=== PATIENT | male | born 1950 | race Caucasian/White ===

== ENCOUNTER 2020-01-27 10:19 | Outpatient (REF) | payer MEDICARE, SELFPAY ==
[2020-01-27 11:32] LABS: Estimated Average Glucose 111 mg/dL; Hemoglobin A1c % 5.5 %
[2020-01-27 12:14] LABS: Glucose Fasting 103 mg/dL (60-99)
[2020-01-27 12:57] LABS: Prostate Specific Antigen 0.52 ng/mL (<0.05-4.0); Thyroid Stimulating Hormone 2.42 mIU/mL (0.32-4.0)
[2020-01-27 13:31] LABS: T4 Thyroxine 5.5 ug/dL (4.5-12.0)
== END 2020-01-27 10:20 | disposition home or self-care (01) ==
LOC: HO.LAB 10:19
PROVIDERS: PCP Internal Medicine; Visit Provider Urology
DX: R73.02 Impaired glucose tolerance (oral) (principal); R94.6 Abnormal results of thyroid function studies
CPT/HCPCS: 82947; 83036; 84153; 84436; 84443

== ENCOUNTER 2020-03-07 11:42 | Emergency (ER) | payer MEDICARE, SELFPAY ==
[2020-03-07 12:09] VITALS: BP 129/68; PULSE 71; RESP 16; TEMP 37; O2SAT 100; BMI 26.5
--- NOTE | 2020-03-07 12:19 | PC.NURSE ---
provider at bedside for primary eval.
--- NOTE | 2020-03-07 12:27 | XR_ITS ---
EXAMINATION: XR CHEST CLINICAL INFORMATION: Cough COMPARISON: Chest radiographs 06/06/2017, 03/07/2015, CT chest report 03/15/2011. TECHNIQUE: 2 views of the chest were obtained. FINDINGS: There are scattered bilateral pleural plaques predominantly mid and lower zones similar in number and distribution to prior study. Calcified pleural plaques again noted diaphragmatic pleura. There is subtle groundglass opacities suggested right infrahilar region on frontal view. There is no lobar or segmental airspace consolidation or pleural effusion. No pulmonary fibrotic changes on plain film. The heart is normal in size. The vascularity is normal. The hilar and mediastinal contours and bony structures are unremarkable. XR/XR chest 2V IMPRESSION: 1. Subtle groundglass opacity right infrahilar region which may be associated with atypical/viral process. No effusion. 2. Numerous chronic calcified pleural plaques. No fibrotic changes. No effusion.
--- NOTE | 2020-03-07 12:28 | ECG_ITS ---
Test Reason : SOB Blood Pressure : / mmHG Vent. Rate : 061 BPM Atrial Rate : 061 BPM P-R Int : 146 ms QRS Dur : 094 ms QT Int : 396 ms P-R-T Axes : - degrees QTc Int : 398 ms Normal sinus rhythm Normal ECG No previous ECGs available Referred By: Bill Lilly Electronically Signed By:BRITNEY HOPPER MD
--- NOTE | 2020-03-07 12:32 | ED.GENADULT ---
HPI - General Adult General Chief complaint: General Medical <LEO Carolina - Last Filed: 03/07/20 21:07> Stated complaint: multiple complaints <LEO Carolina - Last Filed: 03/07/20 21:07> Time Seen by Provider: 03/07/20 12:27 <LEO Carolina Last Filed: 03/07/20 21:07> History of Present Illness HPI narrative: Patient complains of 1 episode of standing up and feeling very dizzy and lightheaded 2 days ago, he did not have chest pain shortness of breath palpitations headache or any numbness or weakness and symptoms were relieved when he sat back down For the past 4 5 days the patient has had symptoms of body aches fatigue runny nose, very mild cough and is concerned he may have COVID, he has no shortness of breath no chest pain no fever no chills no confusion no headache no nausea vomiting diarrhea or skin rash Symptoms are mild, he has no dizziness now <LEO Carolina Last Filed: 03/07/20 21:07> Related Data Home medications: Home Medications Medication Instructions Recorded Confirmed alirocumab 75 mg/mL subcutaneous 75 mg SUBCUT Q2W 02/16/20 02/16/20 pen injector aspirin 81 mg tablet,delayed 81 mg PO DAILY 02/16/20 02/16/20 release cholecalciferol (vitamin D3) 25 25 mcg PO DAILY 02/16/20 02/16/20 mcg (1,000 unit) capsule folic acid 400 mcg tablet 0.4 mg PO DAILY 02/16/20 02/16/20 olmesartan 20 mg tablet 20 mg PO DAILY 02/16/20 02/16/20 omega-3 fatty acids 1,000 mg 1,000 mg PO DAILY 02/16/20 02/16/20 capsule omeprazole 20 mg capsule,delayed 20 mg PO DAILY 02/16/20 02/16/20 release Previous Rx's Medication Instructions Recorded atenolol 50 mg tablet 50 mg PO DAILY #90 tab 02/02/20 atorvastatin 80 mg tablet 80 mg PO DAILY #90 tab 02/02/20 <LEO Carolina Last Filed: 03/07/20 21:07> Allergies/adverse reactions: Allergies Allergy/AdvReac Type Severity Reaction Status Date / Time simvastatin Allergy Unknown Unknown Verified 02/16/20 13:22 <LEO Carolina - Last Filed: 03/07/20 21:07> Review of Systems Review of Systems: No fever no chills no palpitations no chest pain no shortness of breath no neck pain no sore throat no abdominal pain no nausea no vomiting no urinary symptoms no changes to bowel bladder no numbness no weakness no confusion <LEO Carolina - Last Filed: 03/07/20 21:07> Yes all other systems are reviewed and are negative <LEO Carolina - Last Filed: 03/07/20 21:07> [facility] Past Medical History [facility] Narrative: Patient has history of [facility] several years ago and high blood pressure <LEO Carolina - Last Filed: 03/07/20 21:07> Source: nursing notes reviewed <LEO Carolina - Last Filed: 03/07/20 21:07> Medical History: Medical History (Updated 03/08/20 @ 00:00 by Linh Mccoy) Ascending aorta dilatation Barretts esophagus CAD (coronary artery disease) GERD (gastroesophageal reflux disease) 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 History of asbestos exposure History of herpes genitalis Hypercholesterolemia Hypertension Impaired glucose tolerance Moderate aortic stenosis Overweight (BMI 25.0-29.9) <LEO Carolina - Last Filed: 03/07/20 21:07> Surgical History: Surgical History History of appendectomy History of prostate surgery History of tumor History of vasectomy <LEO Carolina - Last Filed: 03/07/20 21:07> Family History Family History: Family History (Updated 02/15/20 @ 13:51 by Munira Good Zen) Father Hypertension CVD (cardiovascular disease) Mother Diabetes Past heart attack <LEO Carolina - Last Filed: 03/07/20 21:07> Social History Social History: Social History (Updated 02/16/20 @ 13:27 by Linda Medina MD) Alcohol intake: current Smoking Status: Former smoker Years Smoked: 25 years ago Advance Directives: No Advance Directives Information Provided: No <LEO Carolina - Last Filed: 03/07/20 21:07> Physical Exam Vital Signs: Vital Signs: Last Vital Signs Temp 98.5 F 03/07/20 15:03 Pulse 57 03/07/20 15:03 Resp 18 03/07/20 15:03 BP 139/71 03/07/20 15:03 Pulse Ox 99 03/07/20 15:03 Body Mass Index 26.5 <LEO Carolina - Last Filed: 03/07/20 21:07> Vital Signs: Last Vital Signs Temp 98.5 F 03/07/20 15:03 Pulse 57 03/07/20 15:03 Resp 18 03/07/20 15:03 BP 139/71 03/07/20 15:03 Pulse Ox 99 03/07/20 15:03 Body Mass Index 26.5 <Rodríguez Laboy MD - Last Filed: 03/16/20 07:05> Patient is A&O x3 comfortable-appearing no acute distress relaxed and cooperative Pharynx is clear Eyes no redness no discharge The chest is clear to auscultation bilaterally full symmetrical equal breath sounds, no respiratory distress, no adventitious sounds Heart no murmur The abdomen is soft and nontender Extremities no edema no rash The neuro is no focal deficit <LEO Carolina - Last Filed: 03/07/20 21:07> Course Course Course Narrative: Patient remains comfortable and asymptomatic throughout visit First troponin was 10 so a 2nd was repeated and unchanged Patient was hydrated with 1 L of fluid and had no dizziness and was able to stand up and ambulate with no symptoms <LEO Carolina - Last Filed: 03/07/20 21:07> I have reviewed the chart <Rodríguez Laboy MD - Last Filed: 03/16/20 07:05> Medical Decision Making Lab Data Lab results reviewed: Yes I reviewed the patient's lab results. <LEO Carolina - Last Filed: 03/07/20 21:07> Result diagrams: : 03/07/20 12:35 03/07/20 12:35 <LEO Carolina - Last Filed: 03/07/20 21:07> Labs: Lab Results 03/07/20 03/07/20 03/07/20 Range/Units 12:35 12:35 13:55 WBC 5.0 (4.8-10.8) X10*3/uL RBC 4.44 L (4.60-5.80) X10*6/uL Hgb 13.6 L (14.0-18.0) g/dl Hct 40.9 L (42-52) % MCV 92.1 (80-98) fL MCH 30.6 (27.0-33.0) pg MCHC 33.3 (31.0-36.0) g/dl RDW 12.5 (11.0-16.0) % Plt Count 131 L (160-400) X10*3/uL MPV 10.7 (9.4-12.4) fL Immature Gran % (Auto) 0.4 (0.0-0.4) % Neut % (Auto) 70.0 (45-73) % Lymph % (Auto) 11.9 L (20-40) % [place] % (Auto) 14.9 H (2-11) % Eos % (Auto) 2.4 (0-4) % Baso % (Auto) 0.4 (0-2) % Lymph # (Auto) 0.6 L (1.2-4.9) X10*3/uL [place] # (Auto) 0.7 (0.1-1.2) X10*3/uL Eos # (Auto) 0.1 (0.0-0.4) X10*3/uL Baso # (Auto) 0.0 (0.0-0.2) X10*3/uL Abs Immat Gran (auto) 0.02 (0.00-0.03) X10*3/uL Absolute Neuts (auto) 3.5 (2.0-8.3) X10*3/uL Absolute Nucleated RBC 0.000 (0.0-0.012) X10*3/uL Nucleated RBC % (auto) 0.0 (0.0-0.2) /100WBC Smear Tech's Comments VERIFIED Sodium 135 (135-145) mmol/L Potassium 4.5 (3.3-5.1) mmol/l Chloride 103 (96-108) mmol/L Carbon Dioxide 23 (22-29) mmol/L Anion Gap 14 (12-20) BUN 19 H (9-16) mg/dL Creatinine 0.92 (0.5-1.4) mg/dL Estim Creat Clear Calc 80.4 Estimated GFR > 60 Random Glucose 117 H (60-115) mg/dL Calcium 8.7 (8.4-10.2) mg/dL Troponin I High Sens 10.1 (<3.5-35.0) ng/L COVID-19 PCR (NOT DETECTED) 03/07/20 03/07/20 Range/Units 13:55 15:40 WBC (4.8-10.8) X10*3/uL RBC (4.60-5.80) X10*6/uL Hgb (14.0-18.0) g/dl Hct (42-52) % MCV (80-98) fL MCH (27.0-33.0) pg MCHC (31.0-36.0) g/dl RDW (11.0-16.0) % Plt Count (160-400) X10*3/uL MPV (9.4-12.4) fL Immature Gran % (Auto) (0.0-0.4) % Neut % (Auto) (45-73) % Lymph % (Auto) (20-40) % [place] % (Auto) (2-11) % Eos % (Auto) (0-4) % Baso % (Auto) (0-2) % Lymph # (Auto) (1.2-4.9) X10*3/uL [place] # (Auto) (0.1-1.2) X10*3/uL Eos # (Auto) (0.0-0.4) X10*3/uL Baso # (Auto) (0.0-0.2) X10*3/uL Abs Immat Gran (auto) (0.00-0.03) X10*3/uL Absolute Neuts (auto) (2.0-8.3) X10*3/uL Absolute Nucleated RBC (0.0-0.012) X10*3/uL Nucleated RBC % (auto) (0.0-0.2) /100WBC Smear Tech's Comments Sodium (135-145) mmol/L Potassium (3.3-5.1) mmol/l Chloride (96-108) mmol/L Carbon Dioxide (22-29) mmol/L Anion Gap (12-20) BUN (9-16) mg/dL Creatinine (0.5-1.4) mg/dL Estim Creat Clear Calc Estimated GFR Random Glucose (60-115) mg/dL Calcium (8.4-10.2) mg/dL Troponin I High Sens 10.2 (<3.5-35.0) ng/L COVID-19 PCR NOT DETECTED (NOT DETECTED) <LEO Carolina - Last Filed: 03/07/20 21:07> Lab Results 03/07/20 03/07/20 03/07/20 Range/Units 12:35 12:35 13:55 WBC 5.0 (4.8-10.8) X10*3/uL RBC 4.44 L (4.60-5.80) X10*6/uL Hgb 13.6 L (14.0-18.0) g/dl Hct 40.9 L (42-52) % MCV 92.1 (80-98) fL MCH 30.6 (27.0-33.0) pg MCHC 33.3 (31.0-36.0) g/dl RDW 12.5 (11.0-16.0) % Plt Count 131 L (160-400) X10*3/uL MPV 10.7 (9.4-12.4) fL Immature Gran % (Auto) 0.4 (0.0-0.4) % Neut % (Auto) 70.0 (45-73) % Lymph % (Auto) 11.9 L (20-40) % [place] % (Auto) 14.9 H (2-11) % Eos % (Auto) 2.4 (0-4) % Baso % (Auto) 0.4 (0-2) % Lymph # (Auto) 0.6 L (1.2-4.9) X10*3/uL [place] # (Auto) 0.7 (0.1-1.2) X10*3/uL Eos # (Auto) 0.1 (0.0-0.4) X10*3/uL Baso # (Auto) 0.0 (0.0-0.2) X10*3/uL Abs Immat Gran (auto) 0.02 (0.00-0.03) X10*3/uL Absolute Neuts (auto) 3.5 (2.0-8.3) X10*3/uL Absolute Nucleated RBC 0.000 (0.0-0.012) X10*3/uL Nucleated RBC % (auto) 0.0 (0.0-0.2) /100WBC Smear Tech's Comments VERIFIED Sodium 135 (135-145) mmol/L Potassium 4.5 (3.3-5.1) mmol/l Chloride 103 (96-108) mmol/L Carbon Dioxide 23 (22-29) mmol/L Anion Gap 14 (12-20) BUN 19 H (9-16) mg/dL Creatinine 0.92 (0.5-1.4) mg/dL Estim Creat Clear Calc 80.4 Estimated GFR > 60 Random Glucose 117 H (60-115) mg/dL Calcium 8.7 (8.4-10.2) mg/dL Troponin I High Sens 10.1 (<3.5-35.0) ng/L COVID-19 PCR (NOT DETECTED) 03/07/20 03/07/20 Range/Units 13:55 15:40 WBC (4.8-10.8) X10*3/uL RBC (4.60-5.80) X10*6/uL Hgb (14.0-18.0) g/dl Hct (42-52) % MCV (80-98) fL MCH (27.0-33.0) pg MCHC (31.0-36.0) g/dl RDW (11.0-16.0) % Plt Count (160-400) X10*3/uL MPV (9.4-12.4) fL Immature Gran % (Auto) (0.0-0.4) % Neut % (Auto) (45-73) % Lymph % (Auto) (20-40) % [place] % (Auto) (2-11) % Eos % (Auto) (0-4) % Baso % (Auto) (0-2) % Lymph # (Auto) (1.2-4.9) X10*3/uL [place] # (Auto) (0.1-1.2) X10*3/uL Eos # (Auto) (0.0-0.4) X10*3/uL Baso # (Auto) (0.0-0.2) X10*3/uL Abs Immat Gran (auto) (0.00-0.03) X10*3/uL Absolute Neuts (auto) (2.0-8.3) X10*3/uL Absolute Nucleated RBC (0.0-0.012) X10*3/uL Nucleated RBC % (auto) (0.0-0.2) /100WBC Smear Tech's Comments Sodium (135-145) mmol/L Potassium (3.3-5.1) mmol/l Chloride (96-108) mmol/L Carbon Dioxide (22-29) mmol/L Anion Gap (12-20) BUN (9-16) mg/dL Creatinine (0.5-1.4) mg/dL Estim Creat Clear Calc Estimated GFR Random Glucose (60-115) mg/dL Calcium (8.4-10.2) mg/dL Troponin I High Sens 10.2 (<3.5-35.0) ng/L COVID-19 PCR NOT DETECTED (NOT DETECTED) <Rodríguez Laboy MD - Last Filed: 03/16/20 07:05> Imaging Data Chest x-ray: My impression: No acute changes in chest x-ray <LEO Carolina - Last Filed: 03/07/20 21:07> Radiologist's impression: FINDINGS: There are scattered bilateral pleural plaques predominantly mid and lower zones similar in number and distribution to prior study. Calcified pleural plaques again noted diaphragmatic pleura. There is subtle groundglass opacities suggested right infrahilar region on frontal view. There is no lobar or segmental airspace consolidation or pleural effusion. No pulmonary fibrotic changes on plain film. The heart is normal in size. The vascularity is normal. The hilar and mediastinal contours and bony structures are unremarkable. XR/XR chest 2V IMPRESSION: 1. Subtle groundglass opacity right infrahilar region which may be associated with atypical/viral process. No effusion. 2. Numerous chronic calcified pleural plaques. No fibrotic changes. No effusion. <LEO Carolina - Last Filed: 03/07/20 21:07> ECG Data Attestation: I personally reviewed and interpreted this ECG as follows: <LEO Carolina - Last Filed: 03/07/20 21:07> Interpretation: EKG was normal sinus rhythm with a rate of sixty-one p.r. was normal QT was normal, no acute ST changes, no acute ischemic changes <LEO Carolina - Last Filed: 03/07/20 21:07> Discharge Plan Discharge Clinical Impression: Acute viral syndrome, Vasovagal episode <LEO Carolina - Last Filed: 03/07/20 21:07> Patient Disposition: Home, Self-Care <LEO Carolina - Last Filed: 03/07/20 21:07> Additional Instructions: Our testing today did not show any signs of heart attack or any imminent dangerous condition Your flu like symptoms certainly could be COVID We will call you with COVID test results in 2-3 days, but a negative test result does not rule it out so he have continued symptoms it is very possible use have COVID so you wear mask and keep a distance from people The dizziness and feeling lightheaded on standing up should be addressed by drinking a lot a water or fluids, and since before standing and then when you stand up wait a 2nd and see if u get dizzy, if you get dizzy sit back down Return any time any worse condition or concerns Follow with primary care doctor <LEO Carolina - Last Filed: 03/07/20 21:07> Prescriptions: No Action atenolol 50 mg tablet 50 mg PO DAILY Qty: 90 RF: 1 atorvastatin 80 mg tablet 80 mg PO DAILY Qty: 90 RF: 2 aspirin [Adult Aspirin Regimen] 81 mg tablet,delayed release (DR/EC) 81 mg PO DAILY RF: 0 omeprazole 20 mg capsule,delayed release(DR/EC) 20 mg PO DAILY RF: 0 olmesartan [Benicar] 20 mg tablet 20 mg PO DAILY RF: 0 Praluent Pen 75 mg/mL pen injector 75 mg subcut Q2W RF: 0 folic acid 400 mcg tablet 0.4 mg PO DAILY RF: 0 omega-3 fatty acids [Fish Oil Concentrate] 1,000 mg capsule 1,000 mg PO DAILY RF: 0 cholecalciferol (vitamin D3) 25 mcg (1,000 unit) capsule 25 mcg PO DAILY RF: 0 <LEO Carolina Last Filed: 03/07/20 21:07> Interventions: ED Discharge Assessment Last Done: 03/07/20 16:49 <LEO Carolina Last Filed: 03/07/20 21:07> Discharge Date/Time: 03/07/20 16:50 <LEO Carolina - Last Filed: 03/07/20 21:07>
[2020-03-07 12:57] LABS: Hematocrit 40.9 % (42-52); Hemoglobin 13.6 g/dl (14.0-18.0); Imm Gran Abs Auto 0.02 X10*3/uL (0.00-0.03); Imm Gran Pct Auto 0.4 % (0.0-0.4); MANUAL DIFF FLAG SCAN; Mean Corpuscular HGB Conc 33.3 g/dl (31.0-36.0); PLT CLUMP 1; Red Cell Distribution Width 12.5 % (11.0-16.0); SCAN SMEAR FLAG 1
[2020-03-07 12:58] LABS: Basophils Percent Auto 0.4 % (0-2); Eosinophils Absolute Auto 0.1 X10*3/uL (0.0-0.4); Eosinophils Percent Auto 2.4 % (0-4); Lymphocytes Absolute Auto 0.6 X10*3/uL (1.2-4.9); Lymphocytes Percent Auto 11.9 % (20-40); Mean Corpuscular Hemoglobin 30.6 pg (27.0-33.0); Mean Corpuscular Volume 92.1 fL (80-98); Mean Platelet Volume 10.7 fL (9.4-12.4); Monocytes Absolute Auto 0.7 X10*3/uL (0.1-1.2); Monocytes Percent Auto 14.9 % (2-11); Neutrophils Absolute Auto 3.5 X10*3/uL (2.0-8.3); Platelet Count 131 X10*3/uL (160-400); Red Blood Count 4.44 X10*6/uL (4.60-5.80)
[2020-03-07 13:19] LABS: Anion Gap 14 (12-20); Blood Urea Nitrogen 19 mg/dL (9-16); Calcium 8.7 mg/dL (8.4-10.2); Carbon Dioxide 23 mmol/L (22-29); Chloride 103 mmol/L (96-108); Creatinine Clr Calc Pharmacy 80.4; Estimated Glomerular Filt Rate > 60; Glucose Random 117 mg/dL (60-115); Potassium 4.5 mmol/l (3.3-5.1); Sodium 135 mmol/L (135-145)
[2020-03-07 13:38] LABS: SLIDE REVIEW VERIFIED
[2020-03-07] MEDS: 0.9 % Sodium Chloride 1,000 ML 999 ML IVCONT (13:45)
[2020-03-07 14:30] LABS: Troponin-I High Sensitivity 10.1 ng/L (<3.5-35.0)
[2020-03-07 15:03] VITALS: BP 139/71; PULSE 57; RESP 18; TEMP 36.9; O2SAT 99
[2020-03-07 16:21] LABS: Troponin-I High Sensitivity 10.2 ng/L (<3.5-35.0)
== END 2020-03-07 16:50 | disposition home or self-care (01) ==
PROVIDERS: Physician Assistant Medical; Emergency Provider Emergency Medicine; PCP Internal Medicine
DX: B34.9 Viral infection, unspecified (principal); R55 Syncope and collapse; R42 Dizziness and giddiness; Z20.828 Contact with and (suspected) exposure to other viral communicable diseases; Z79.899 Other long term (current) drug therapy; Z87.891 Personal history of nicotine dependence
CPT/HCPCS: 36415; 71046; 80048; 84484; 85025; 93005; 96360; 99283; 99284; U0003

== ENCOUNTER → 2020-04-29 14:37 | Outpatient (BNVA) | payer MEDICARE, SELFPAY | PROVIDERS: PCP Internal Medicine; Referring Provider Internal Medicine; Visit Provider Urology | DX: Z13.89 Encounter for screening for other disorder (principal) | CPT/HCPCS: Q3014 ==

== ENCOUNTER 2020-11-09 10:26 | Day surgery (SDC) | payer MEDICARE, SELFPAY ==
[2020-11-03 11:35] VITALS: BMI 27.3
--- NOTE | 2020-11-08 09:48 | P.CONAN_ITS ---
Documented by User: Lilli Harris 11/08/20 09:54 HPI - Anesthesia Eval Consult details Narrative: 70yo M for Upper Endoscopy Daily ETOH: 1-2 beers PMFSH Active Problems Active Problems: All Active Problems (Updated 11/03/20 @ 11:35 by China Kimball) BPH (benign prostatic hyperplasia) (Acute) Hypercholesterolemia (Acute) Barretts esophagus (Acute) CAD (coronary artery disease) (Acute) GERD (gastroesophageal reflux disease) (Acute) Hypertension (Acute) Past Medical History Medical History Arthritis Ascending aorta dilatation Barretts esophagus BPH (benign prostatic hyperplasia) CAD (coronary artery disease) Cancer, skin, squamous cell GERD (gastroesophageal reflux disease) 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 History of asbestos exposure History of herpes genitalis Hypercholesterolemia Hypertension Impaired glucose tolerance Insomnia Moderate aortic stenosis Overweight (BMI 25.0-29.9) PFO (patent foramen ovale) Scoliosis Family History Family History Father Hypertension CVD (cardiovascular disease) Mother Diabetes Past heart attack Surgical History Surgical History History of appendectomy History of esophagogastroduodenoscopy (EGD) History of prostate surgery History of vasectomy Hx of colonoscopy Hx of squamous cell carcinoma excision Social History Social History Alcohol intake: current Alcohol intake frequency: 0-2 drinks per day Alcohol type: beer Patient Tobacco Use Status: Former Tobacco user Quit Date: 1995 Years Smoked: 25 years ago Are you DNR?: No Advance Directives: No Advance Directives Information Provided: No Advance Directives on File: No Meds Allergies Allergy/AdvReac Type Severity Reaction Status Date / Time simvastatin Allergy Unknown Unknown Verified 11/09/20 11:20 Home Medications Medication Instructions Recorded Confirmed Last Taken Type alirocumab 75 mg/mL subcutaneous 75 mg SUBCUT Q2W 02/16/20 11/03/20 Unknown History pen injector (Praluent Pen) aspirin 81 mg tablet,delayed 81 mg PO DAILY 02/16/20 11/03/20 11/08/20 History release (Adult Aspirin Regimen) cholecalciferol (vitamin D3) 25 25 mcg PO .DAILY AT NOON 02/16/20 11/03/20 Unknown History mcg (1,000 unit) capsule folic acid 400 mcg tablet 0.4 mg PO .DAILY AT NOON 02/16/20 11/09/20 11/02/20 History omega-3 fatty acids 1,000 mg 1,000 mg PO TID 02/16/20 11/09/20 11/02/20 History capsule (Fish Oil Concentrate) omeprazole 20 mg capsule,delayed 20 mg PO DAILY@0630 02/16/20 11/09/20 11/09/20 08:30 History release atenolol 50 mg tablet 50 mg PO DAILY@1700 11/03/20 11/03/20 Unknown History atorvastatin 80 mg tablet 80 mg PO BEDTIME 11/03/20 11/03/20 Unknown History cyanocobalamin (vitamin B-12) 1,000 mcg SUBLINGUAL Q OTHER DAY 11/03/20 11/03/20 Unknown History 1,000 mcg sublingual tablet olmesartan 20 mg tablet 20 mg PO DAILY@17011/03/20 11/03/20 Unknown History Exam Exam Date and Time: November 08, 2020 0948 Height,Weight and Vital Signs: Height 5 ft 9 in Weight 83.915 kg Narrative Narrative: EKG Vent. Rate : 061 BPM Atrial Rate : 061 BPM P-R Int : 146 ms QRS Dur : 094 ms QT Int : 396 ms P-R-T Axes : -02 -18 -01 degrees QTc Int : 398 ms Normal sinus rhythm Normal ECG No previous ECGs available ECHO 01/2020 LVEF 60-65%, mild concentric LVH, mild LA dilation, known PFO, Nml RV size and nml systolic function, thickened aortic valve cusps with reduced excursions, Mod Aortic Stenosis, mild mitral regurg, dilated transverse aorta @ 3.4cm. No significant change from 2018 ECHO. 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 History of asbestos exposure History of herpes genitalis Hypercholesterolemia Hypertension Impaired glucose tolerance Insomnia Moderate aortic stenosis Overweight (BMI 25.0-29.9) PFO (patent foramen ovale) Scoliosis Family History Family History Father Hypertension CVD (cardiovascular disease) Mother Diabetes Past heart attack Surgical History Surgical History History of appendectomy History of esophagogastroduodenoscopy (EGD) History of prostate surgery History of vasectomy Hx of colonoscopy Hx of squamous cell carcinoma excision Social History Social History Alcohol intake: current Alcohol intake frequency: 0-2 drinks per day Alcohol type: beer Patient Tobacco Use Status: Former Tobacco user Quit Date: 1995 Years Smoked: 25 years ago Are you DNR?: No Advance Directives: No Advance Directives Information Provided: No Advance Directives on File: No Meds Allergies Allergy/AdvReac Type Severity Reaction Status Date / Time simvastatin Allergy Unknown Unknown Verified 11/09/20 11:20 Home Medications Medication Instructions Recorded Confirmed Last Taken Type alirocumab 75 mg/mL subcutaneous 75 mg SUBCUT Q2W 02/16/20 11/03/20 Unknown History pen injector (Praluent Pen) aspirin 81 mg tablet,delayed 81 mg PO DAILY 02/16/20 11/03/20 11/08/20 History release (Adult Aspirin Regimen) cholecalciferol (vitamin D3) 25 25 mcg PO .DAILY AT NOON 02/16/20 11/03/20 Unknown History mcg (1,000 unit) capsule folic acid 400 mcg tablet 0.4 mg PO .DAILY AT NOON 02/16/20 11/09/20 11/02/20 History omega-3 fatty acids 1,000 mg 1,000 mg PO TID 02/16/20 11/09/20 11/02/20 History capsule (Fish Oil Concentrate) omeprazole 20 mg capsule,delayed 20 mg PO DAILY@0630 02/16/20 11/09/20 11/09/20 08:30 History release atenolol 50 mg tablet 50 mg PO DAILY@1700 11/03/20 11/03/20 Unknown History atorvastatin 80 mg tablet 80 mg PO BEDTIME 11/03/20 11/03/20 Unknown History cyanocobalamin (vitamin B-12) 1,000 mcg SUBLINGUAL Q OTHER DAY 11/03/20 11/03/20 Unknown History 1,000 mcg sublingual tablet olmesartan 20 mg tablet 20 mg PO DAILY@1700 11/03/20 11/03/20 Unknown History Exam Airway Mallampati Class: II TM Dist: >3cm Neck ROM: Full Loose/Missing/Broken Teeth: No Heart: RRR Lungs: CTA Assessment and Plan Final Anesthetic Review NPO: Yes ASA Class: III Final Preanesthetic Review: Meds/Allgs Chart Reviewed, Consent Obtained/Reviewed and Anes Risks/Benef Reviewed Patient Risk: Intermediate Procedure Risk: Intermediate Anesthetic Plan Anesthetic Plan: MAC: Disposition: Standard PACU
[2020-11-09 11:21] VITALS: BP 143/66; PULSE 46; RESP 16; TEMP 36.8; O2SAT 97
[2020-11-09] MEDS: Lactated Ringers 1,000 ML 100 ML IVCONT (11:40)
[2020-11-09 13:00] VITALS: BP 83/40; PULSE 45; RESP 18; TEMP 36.4; O2SAT 97
--- NOTE | 2020-11-09 13:03 | P.BOP_ITS ---
Brief Operative Note Date of Service: 11/09/20 Pre-op diagnosis: Kruse's Esophagus, GERD Post-op diagnosis: other (Same, Hiatal hernia) Procedure: EGD with biopsies Surgeon: Kiel Mesa Was an [employer] used for this Procedure?: No Estimated blood loss (mL): 4.0 Pathology: other (A. EG Junction at 37cm) Condition: stable Disposition: PACU
[2020-11-09 13:15] VITALS: BP 114/61; PULSE 41; RESP 17; TEMP 36.4; O2SAT 97
--- NOTE | 2020-11-09 13:53 | OP_ITS ---
SURGEON: Kiel Mesa MD INDICATIONS: The patient presents for followup of gastroesophageal reflux and Kruse's esophagus. Full consent has been obtained from him for this, including risks of bleeding and perforation. PREOPERATIVE DIAGNOSIS: POSTOPERATIVE DIAGNOSIS: PROCEDURE PERFORMED: Esophagogastroduodenoscopy with biopsies. ESTIMATED BLOOD LOSS: COMPLICATIONS: ANESTHESIA: Monitored anesthesia care. ASSISTANTS: SPECIMENS: PREOPERATIVE DIAGNOSES: Gastroesophageal reflux and history of Kruse's esophagus. POSTOPERATIVE DIAGNOSES: Gastroesophageal reflux and history of Kruse's esophagus, hiatal hernia. DESCRIPTION OF PROCEDURE: The patient was placed in the left lateral decubitus position. The Olympus video gastroscope was passed in the posterior oropharynx and upper esophagus under direct vision. The scope was passed slowly into the distal esophagus. The gastroesophageal junction appeared at 37 cm. There was no esophagitis. There were less than 1 cm areas of probable Kruse's mucosa, but without any sign of lesions nor ulceration. There was a moderate-sized hiatal hernia. The hiatal hernia mucosa appeared normal. The scope was advanced to the pylorus and the duodenum was cannulated to the descending portion. The duodenum including the bulb appeared normal without mass or ulceration. The scope was withdrawn back in the stomach. The gastric antrum and body appeared normal with good peristalsis. The scope was retroflexed visualizing the proximal stomach carefully which appeared normal, without any sign of mass or ulceration. The scope was straightened out and withdrawn back into the esophagus. Multiple biopsies were obtained from the areas of Kruse's appearing mucosa at the EG junction at 37 cm. Proximal to this, the esophageal mucosa appeared normal. The scope was withdrawn from the patient. He tolerated the procedure well and was returned to the recovery area in stable condition. IMPRESSION: 1. History of Kruse's esophagus, rule out dysplasia. 2. Hiatal hernia. PLAN: The results of the biopsy will be checked. Assuming there is no dysplasia, I would recommend a repeat upper endoscopy in 3 years when he has his next screening colonoscopy in 2023. He was advised to continue his omeprazole. He was advised to resume his aspirin tomorrow. He was advised not to use any NSAIDs for at least a week. MD LYNN Dan/DAWSONL / [id number]
== END 2020-11-09 14:10 | disposition home or self-care (01) ==
PROVIDERS: PCP Internal Medicine; Visit Provider Internal Medicine
PROC: 0DJ08ZZ Inspection of Upper Intestinal Tract, Via Natural or Artificial Opening Endoscopic (ICD-10-PCS; CPT 43235; principal; 2020-11-09 11:40)
DX: K21.9 Gastro-esophageal reflux disease without esophagitis (principal); K22.70 Barrett's esophagus without dysplasia; K44.9 Diaphragmatic hernia without obstruction or gangrene; I25.10 Atherosclerotic heart disease of native coronary artery without angina pectoris; I10 Essential (primary) hypertension; Z98.61 Coronary angioplasty status; Z79.899 Other long term (current) drug therapy; Z79.82 Long term (current) use of aspirin; Z87.891 Personal history of nicotine dependence; Z85.828 Personal history of other malignant neoplasm of skin; Z77.090 Contact with and (suspected) exposure to asbestos
CPT/HCPCS: 43239; 88305; J0461

== ENCOUNTER → 2020-12-20 09:28 | Outpatient (BNVA) | payer MEDICARE, SELFPAY | PROVIDERS: PCP Internal Medicine; Referring Provider Internal Medicine; Visit Provider Surgery | DX: L72.3 Sebaceous cyst (principal) | CPT/HCPCS: 99202 ==

== ENCOUNTER 2021-01-19 07:41 | Outpatient (REF) | payer MEDICARE, SELFPAY ==
[2021-01-19 07:47] VITALS: BMI 26.6
[2021-01-19 07:48] VITALS: BP 123/71; PULSE 48; RESP 16; TEMP 37.1; O2SAT 100
[2021-01-19 08:56] VITALS: BP 144/71; PULSE 51; RESP 16; O2SAT 97
--- NOTE | 2021-01-27 08:53 | P.OP_ITS ---
Operative Note Operative Note Date of Service: 01/19/21 Narrative: Preoperative diagnosis: Skin cyst left thigh, right buttock, and bridge of nose Postoperative diagnosis: Same Procedure: Excision of left thigh, right buttock, and bridge of nose. Surgeon: Kiel López MD Movie Producer: No physician Anesthesia: Local Indications for procedure: 70-year-old male patient with a history of an enlarging lesion of the left thigh just above the knee, left buttock, and bridge of nose. Patient denies any pain associated with the lesions and denies a previous history of infection. He is requesting excision of all 3 lesions. Operative findings: Cystic appearing lesion of the left knee measuring approximately 1.5 cm in diameter. Lesion of the right buttock measures approximately 1.5 cm as well. Lesion of the face over the bridge of the nose measures approximately 0.5 cm in diameter. Specimen: Lesion of left thigh, right buttock, and bridge of nose Estimated blood loss: 10 mL Complications: None Procedure details: Patient was brought to the minor surgery suite and placed in a supine position. The sites of surgery were confirmed in the left thigh just above the knee on the lateral surface, right buttock, and face. After assuring informed consent the skin over the left thigh lesion was prepped with Betadine and draped in sterile fashion. Local anesthesia consisting 1% lidocaine with epinephrine was then infiltrated circumferentially. An elliptical incision was then created in a longitudinal fashion directly over the palpable lesion. A margin of 2 mm was performed around the lesion and elongated longitudinally. Incision was then made with a scalpel carried out through subcutaneous tissue, and around the lesion. Hemostasis was assured using light pressure. Deep subcutaneous tissue was reapproximated using interrupted 3-0 Polysorb sutures. Dermis was reapproximated using interrupted 3-0 Polysorb sutures. Skin was then closed using interrupted 4-0 nylon sutures. Sterile dressings were then applied. Attention was then directed to the face were again the skin was prepped with Betadine and draped in a sterile fashion directly over the bridge of the nose. An elliptical incision oriented transversely was then created around the palpab le lesion. This was carried out through subcutaneous tissue and around the cyst wall. Skin was then closed using interrupted 5 0 nylon sutures. Sterile dressings consisting of small sq of gauze and Tegaderm were then applied. The patient was then placed in a prone position and the skin over the right buttock palpable mass was prepped with Betadine and draped in sterile fashion. Local anesthesia was then infiltrated circumferentially and elliptical incision oriented obliquely was then performed along the lines of tension. Incision was carried down through subcutaneous tissue and around the palpable lesion. This was passed off the table and sent to pathology for further examination. Pressure was held to maintain hemostasis. Deep subcutaneous tissue was reapproximated using interrupted 3-0 Polysorb sutures. Dermis was reapproximated using interrupted 3-0 Polysorb sutures. Skin was then closed using interrupted 4-0 nylon sutures. Sterile dressings were then applied. The and tolerated the procedure well. Sponge, instrument, and needle counts reported as correct. He was discharged to home in stable condition.
== END 2021-01-19 07:42 | disposition home or self-care (01) ==
LOC: HO.MS 07:41
PROVIDERS: PCP Internal Medicine; Visit Provider Surgery
PROC: (CPT 11602; principal; 2021-01-19 08:00)
DX: C4A.72 Merkel cell carcinoma of left lower limb, including hip (principal); C4A.59 Merkel cell carcinoma of other part of trunk; D23.39 Other benign neoplasm of skin of other parts of face
CPT/HCPCS: 11602 ×2; 12032; 11440; 88304; 88305; 88341; 88342; 88360

== ENCOUNTER 2021-01-25 09:58 | Outpatient (REF) | payer MEDICARE, SELFPAY ==
[2021-01-25 13:33] LABS: MANUAL DIFF FLAG NO
[2021-01-25 13:41] LABS: Basophils Percent Auto 0.4 % (0-2); Eosinophils Absolute Auto 0.1 X10*3/uL (0.0-0.4); Eosinophils Percent Auto 2.3 % (0-4); Hematocrit 44.9 % (42-52); Hemoglobin 14.8 g/dl (14.0-18.0); Imm Gran Abs Auto 0.01 X10*3/uL (0.00-0.03); Imm Gran Pct Auto 0.2 % (0.0-0.4); Lymphocytes Absolute Auto 1.2 X10*3/uL (1.2-4.9); Lymphocytes Percent Auto 21.8 % (20-40); Mean Corpuscular Hemoglobin 30.3 pg (27.0-33.0); Mean Platelet Volume 11.1 fL (9.4-12.4); Monocytes Absolute Auto 0.5 X10*3/uL (0.1-1.2); Monocytes Percent Auto 8.1 % (2-11); Neutrophils Absolute Auto 3.7 X10*3/uL (2.0-8.3); Neutrophils Percent Auto 67.2 % (45-73); Platelet Count 138 X10*3/uL (160-400); Red Blood Count 4.88 X10*6/uL (4.60-5.80); Red Cell Distribution Width 13.1 % (11.0-16.0); White Blood Count 5.5 X10*3/uL (4.8-10.8)
[2021-01-25 13:54] LABS: Alanine Aminotransferase 20 U/L (0-40); Albumin Level 4.1 g/dL (3.5-5.0); Alkaline Phosphatase 51 U/L (39-117); Anion Gap 10 (12-20); Aspartate Amino Transferase 22 U/L (5-37); Bilirubin Total 0.7 mg/dL (0.0-1.0); Blood Urea Nitrogen 19 mg/dL (9-16); Calcium 9.3 mg/dL (8.4-10.2); Carbon Dioxide 27 mmol/L (22-29); Chloride 106 mmol/L (96-108); Cholesterol 159 mg/dL; Estimated Glomerular Filt Rate > 60; Glucose Random 115 mg/dL (60-115); HDL Cholesterol 57 mg/dL; LDL Cholesterol Calculated 86 mg/dl; Potassium 4.8 mmol/L (3.3-5.1); Sodium 138 mmol/L (135-145); Total Protein 6.4 g/dL (6.5-8.0); Triglycerides 82 mg/dL
[2021-01-25 14:15] LABS: Prostate Specific Antigen Scr 0.31 ng/mL (<0.05-4.0); Thyroid Stimulating Hormone 3.04 uIU/mL (0.32-4.0)
[2021-01-25 14:19] LABS: PSA,Total (Free>4and<10) 0.29 ng/mL (0.00-4.00)
[2021-01-25 14:53] LABS: Folate 18.9 ng/mL (> or = 4.0); Vitamin B12 411 pg/mL (200-900)
== END 2021-01-25 09:59 | disposition home or self-care (01) ==
LOC: HO.10HDL 09:58
PROVIDERS: Absent Provider Urology; Visit Provider Internal Medicine
DX: Z12.5 Encounter for screening for malignant neoplasm of prostate (principal); I25.10 Atherosclerotic heart disease of native coronary artery without angina pectoris; E78.00 Pure hypercholesterolemia, unspecified; N13.8 Other obstructive and reflux uropathy; N40.1 Benign prostatic hyperplasia with lower urinary tract symptoms
CPT/HCPCS: 36415; 80053; 80061; 82607; 82746; 84153; 84443; 85025

== ENCOUNTER → 2021-01-26 13:55 | Outpatient (BNVA) | payer MEDICARE, SELFPAY | PROVIDERS: PCP Internal Medicine; Referring Provider Internal Medicine; Visit Provider Surgery | DX: C4A.72 Merkel cell carcinoma of left lower limb, including hip (principal); C4A.59 Merkel cell carcinoma of other part of trunk; E78.00 Pure hypercholesterolemia, unspecified; I10 Essential (primary) hypertension; Z87.891 Personal history of nicotine dependence; Z88.8 Allergy status to other drugs, medicaments and biological substances | CPT/HCPCS: 99212 ==

== ENCOUNTER → 2021-04-27 09:00 | Outpatient (BNVA) | payer MEDICARE, SELFPAY | PROVIDERS: PCP Internal Medicine; Visit Provider Urology | DX: N40.0 Benign prostatic hyperplasia without lower urinary tract symptoms (principal) | CPT/HCPCS: Q3014 ==

== ENCOUNTER 2021-06-21 09:27 | Outpatient (REF) | payer MEDICARE, SELFPAY ==
[2021-06-21 10:26] LABS: Estimated Average Glucose 105 mg/dL; Hemoglobin A1c % 5.3 %
[2021-06-21 10:42] LABS: Alanine Aminotransferase 27 U/L (0-40); Albumin Level 4.1 g/dL (3.5-5.0); Alkaline Phosphatase 50 U/L (39-117); Anion Gap 10 (12-20); Aspartate Amino Transferase 27 U/L (5-37); Blood Urea Nitrogen 17 mg/dL (9-16); Calcium 9.6 mg/dL (8.4-10.2); Carbon Dioxide 29 mmol/L (22-29); Chloride 106 mmol/L (96-108); Cholesterol 164 mg/dL; Estimated Glomerular Filt Rate > 60; Glucose Random 115 mg/dL (60-115); HDL Cholesterol 71 mg/dL; LDL Cholesterol Calculated 82 mg/dl; Potassium 4.9 mmol/L (3.3-5.1); Sodium 140 mmol/L (135-145); Total Protein 6.6 g/dL (6.5-8.0); Triglycerides 57 mg/dL
== END 2021-06-21 09:28 | disposition home or self-care (01) ==
LOC: HO.LAB 09:27
PROVIDERS: PCP Internal Medicine; Visit Provider Internal Medicine
DX: E78.00 Pure hypercholesterolemia, unspecified (principal)
CPT/HCPCS: 36415; 80053; 80061; 83036

== ENCOUNTER 2022-02-19 09:18 | Outpatient (REF) | payer MEDICARE, SELFPAY ==
[2022-02-19 10:28] LABS: MANUAL DIFF FLAG NO
[2022-02-19 10:40] LABS: Basophils Percent Auto 0.7 % (0-2); Eosinophils Absolute Auto 0.1 X10*3/uL (0.0-0.4); Eosinophils Percent Auto 2.7 % (0-4); Hematocrit 44.4 % (42.0-52.0); Hemoglobin 14.5 g/dl (14.0-18.0); Lymphocytes Absolute Auto 0.7 X10*3/uL (1.2-4.9); Lymphocytes Percent Auto 17.6 % (20-40); Mean Corpuscular HGB Conc 32.7 g/dl (31.0-36.0); Mean Corpuscular Hemoglobin 30.3 pg (27.0-33.0); Mean Corpuscular Volume 92.9 fL (80.0-98.0); Mean Platelet Volume 10.8 fL (9.4-12.4); Monocytes Absolute Auto 0.4 X10*3/uL (0.1-1.2); Monocytes Percent Auto 9.6 % (2-11); Neutrophils Absolute Auto 2.8 x10*3/uL (2.0-8.3); Neutrophils Percent Auto 69.4 % (45-73); Platelet Count 125 X10*3/uL (160-400); Red Blood Count 4.78 X10*6/uL (4.60-5.80); Red Cell Distribution Width 13.2 % (11.0-16.0); White Blood Count 4.1 X10*3/uL (4.8-10.8)
[2022-02-19 11:00] LABS: Alanine Aminotransferase 23 U/L (0-40); Albumin Level 4.3 g/dL (3.5-5.0); Alkaline Phosphatase 51 U/L (39-117); Anion Gap 15 (12-20); Aspartate Amino Transferase 24 U/L (5-37); Bilirubin Total 0.9 mg/dL (0.0-1.0); Blood Urea Nitrogen 16 mg/dL (9-16); Calcium 9.3 mg/dL (8.4-10.2); Carbon Dioxide 25 mmol/L (22-29); Chloride 105 mmol/L (96-108); Cholesterol 166 mg/dL; Estimated Glomerular Filt Rate > 60; Glucose Random 107 mg/dL (60-115); HDL Cholesterol 69 mg/dL; LDL Cholesterol Calculated 82 mg/dl; Potassium 4.8 mmol/L (3.3-5.1); Sodium 140 mmol/L (135-145); Total Protein 6.8 g/dL (6.5-8.0); Triglycerides 75 mg/dL
[2022-02-19 11:07] LABS: B Type Natriuretic Peptide 94 pg/mL (<100)
[2022-02-19 11:22] LABS: Prostate Specific Antigen 0.12 ng/mL (<0.05-4.0)
[2022-02-19 11:29] LABS: Free T4 (Free Thyroxine) 0.81 ng/dL (0.71-1.85); Prostate Specific Antigen Scr 0.12 ng/mL (<0.05-4.0); Thyroid Stimulating Hormone 2.58 uIU/mL (0.32-4.0)
[2022-02-19 12:13] LABS: Folate > 20.0 ng/mL (> or = 4.0); Vitamin B12 420 pg/mL (200-900)
== END 2022-02-19 09:19 | disposition home or self-care (01) ==
LOC: HO.10HDL 09:18
PROVIDERS: Absent Provider Urology; Referring Provider Internal Medicine Cardiovascular Disease; Visit Provider Internal Medicine
DX: N40.1 Benign prostatic hyperplasia with lower urinary tract symptoms (principal); E78.5 Hyperlipidemia, unspecified; I25.10 Atherosclerotic heart disease of native coronary artery without angina pectoris; E78.00 Pure hypercholesterolemia, unspecified; N13.8 Other obstructive and reflux uropathy; Z12.5 Encounter for screening for malignant neoplasm of prostate
CPT/HCPCS: 36415; 80053; 80061; 82607; 82746; 83880; 84153; 84439; 84443; 85025

== ENCOUNTER → 2022-04-27 10:38 | Outpatient (BNVA) | payer MEDICARE, SELFPAY | PROVIDERS: PCP Internal Medicine; Visit Provider Urology | DX: N40.0 Benign prostatic hyperplasia without lower urinary tract symptoms (principal) | CPT/HCPCS: 51798; 99212 ==

== ENCOUNTER 2023-02-19 09:32 | Outpatient (REF) | payer MEDICARE, SELFPAY ==
[2023-02-19 10:42] LABS: MANUAL DIFF FLAG NO
[2023-02-19 10:54] LABS: Basophils Percent Auto 0.7 % (0-2); Eosinophils Absolute Auto 0.1 X10*3/uL (0.0-0.4); Eosinophils Percent Auto 2.1 % (0-4); Hematocrit 44.7 % (42.0-52.0); Hemoglobin 14.4 g/dl (14.0-18.0); Imm Gran Abs Auto 0.01 X10*3/uL (0.00-0.03); Imm Gran Pct Auto 0.2 % (0.0-0.4); Lymphocytes Absolute Auto 0.8 X10*3/uL (1.2-4.9); Lymphocytes Percent Auto 17.3 % (20-40); Mean Corpuscular HGB Conc 32.2 g/dl (31.0-36.0); Mean Corpuscular Hemoglobin 30.6 pg (27.0-33.0); Mean Corpuscular Volume 95.1 fL (80.0-98.0); Mean Platelet Volume 10.5 fL (9.4-12.4); Monocytes Absolute Auto 0.5 X10*3/uL (0.1-1.2); Monocytes Percent Auto 10.9 % (2-11); Neutrophils Percent Auto 68.8 % (45-73); Platelet Count 125 X10*3/uL (160-400); Red Cell Distribution Width 13.3 % (11.0-16.0); White Blood Count 4.3 X10*3/uL (4.8-10.8)
[2023-02-19 11:20] LABS: Alanine Aminotransferase 21 U/L (0-40); Albumin Level 4.1 g/dL (3.5-5.0); Alkaline Phosphatase 53 U/L (39-117); Anion Gap 11 (12-20); Aspartate Amino Transferase 24 U/L (5-37); Bilirubin Total 0.7 mg/dL (0.0-1.0); Blood Urea Nitrogen 15 mg/dL (9-16); Calcium 9.6 mg/dL (8.4-10.2); Carbon Dioxide 28 mmol/L (22-29); Chloride 107 mmol/L (96-108); Cholesterol 146 mg/dL (<200); Estimated Glomerular Filt Rate > 60; Glucose Random 114 mg/dL (60-115); HDL Cholesterol 68 mg/dL (>40); LDL Cholesterol Calculated 68 mg/dL (<100); Potassium 4.9 mmol/L (3.3-5.1); Sodium 141 mmol/L (135-145); Total Protein 6.8 g/dL (6.5-8.0); Triglycerides 53 mg/dL (<150)
[2023-02-19 11:26] LABS: Free T4 (Free Thyroxine) 0.76 ng/dL (0.71-1.85); Thyroid Stimulating Hormone 3.13 uIU/mL (0.32-4.0); Vitamin D 25-OH Total 43.3 ng/mL (>30)
[2023-02-19 11:34] LABS: Folate 13.5 ng/mL (> or = 4.0); Prostate Specific Antigen Scr 0.15 ng/mL (<0.05-4.0); Vitamin B12 374 pg/mL (200-900)
== END 2023-02-19 09:33 | disposition home or self-care (01) ==
LOC: HO.10HDL 09:32
PROVIDERS: Visit Provider Internal Medicine
DX: E78.00 Pure hypercholesterolemia, unspecified (principal); Z12.5 Encounter for screening for malignant neoplasm of prostate; C4A.9 Merkel cell carcinoma, unspecified
CPT/HCPCS: 36415; 80053; 80061; 82306; 82607; 82746; 84153; 84439; 84443; 85025

== ENCOUNTER 2023-03-26 09:54 | Outpatient (AMB) | payer MEDICARE, SELFPAY ==
--- NOTE | 2023-03-26 09:56 | AM.OFFVISMDC ---
Intake Vital Signs 03/26/23 09:57 03/26/23 10:22 Height 5 ft 9.5 in Weight 191 lb 0.2 oz BMI 27.8 BP 124/68 Blood Pressure Location Lt brachial Position Sitting Pulse 47 L 50 Pulse Source Pulse Oximeter Palpation Pulse Oximetry (%) 98 Oxygen Delivery Method Room Air Intake Visit Reasons: RUST G0439 Cook Italian Style Food Required: No Allergies simvastatin Allergy (Unknown, Verified 03/26/23 10:12) Unknown Medication List - Last Reconciled 03/26/23 by NARINDER Mayes alirocumab (Praluent Pen) mg subcut amlodipine 2.5 mg PO DAILY aspirin (Adult Aspirin Regimen) 81 mg PO DAILY atenolol 50 mg PO DAILY atorvastatin 80 mg PO BEDTIME 90 days [cbd oil ] cholecalciferol (vitamin D3) 25 mcg PO .DAILY AT NOON cyanocobalamin (vitamin B-12) 1,000 mcg sublingual Q OTHER DAY folic acid 0.4 mg PO .DAILY AT NOON hydrocortisone 2.5% (Proctosol HC) 1 appl [place] BID-QID PRN nystatin 1 appl topical BID-TID olmesartan 20 mg PO DAILY omeprazole 20 mg PO DAILY@0630 HPI RUST G0439 HPI Details Patient is a 72-year-old male who presents today for subsequent wellness visit. Patient of Dr. Medina. Today we discussed patient's need for tetanus vaccine. Up-to-date with other health preventative screenings. Loiza of care was reviewed with the patient and he was provided with a screening schedule. End of life planning was discussed with the patient and he was provided with MOLST form. He will provide office with a healthcare proxy form, he has this at home. 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 History of herpes genitalis Impaired glucose tolerance Hypercholesterolemia Ascending aorta dilatation Moderate aortic stenosis Barretts esophagus CAD (coronary artery disease) Overweight (BMI 25.0-29.9) History of asbestos exposure GERD (gastroesophageal reflux disease) Hypertension Surgical History Hx of squamous cell carcinoma excision Hx of colonoscopy History of esophagogastroduodenoscopy (EGD) History of prostate surgery History of vasectomy History of appendectomy Family History Father Hypertension CVD (cardiovascular disease) Mother Diabetes Past heart attack Social History Housing: House Alcohol intake: current Alcohol intake frequency: 0-2 drinks per day Alcohol type: beer Patient Tobacco Use Status: Former Tobacco user Quit Date: 1995 Tobacco use type: Cigarette Years Smoked: 25 years ago e-Cigarette/Vaping Use: Never Used Second Hand Smoke Exposure: No Current occupational status: retired Cognitive needs: No Hearing needs: No Vision needs: Yes Questionnaire Medicare Wellness Checkup What [age] 65-71 What gender do you identify with?: male During the past 4 weeks, how much have you been bothered by emotional problems such as feeling anxious, depressed, irritable, sad or downhearted, and blue?: not at all During the past 4 weeks, has your physical & emotional health limited your social activities with family, friends, neighbors, or groups?: not at all During the past 4 weeks, how much bodily pain have you generally had?: mild pain During the past 4 weeks, was someone available to help you if you needed & wanted help?: yes, as much as I wanted During the past 4 weeks, what was the hardest physical activity you could do for at least 2 minutes?: moderate Can you get to places out of walking distance without help? (For eg., can you travel alone on buses, taxis or drive your car?): Yes Can you go shopping for groceries or clothes without someone's help?: Yes Can you prepare your own meals?: Yes Can you do your housework without help?: Yes Because of any health problems, do you need the help of another person with your personal care needs such as eating, bathing, dressing or getting around the house?: No Can you handle your own money without help?: Yes During the past 4 weeks, how would you rate your health in general?: good During the past 4 weeks how have things been going for you?: pretty well Are you having difficulties driving your car?: no Do you always fasten your seat belt when you are in a car?: yes, usually During past 4 weeks, have you been bothered by the following: never: Falling or dizzy when standing up, Trouble eating well?, Teeth or denture problems? and Problems using the telephone? and seldom: Sexual problems? and Tiredness or fatigue? Have you fallen 2 or more times in the past year?: No Are you afraid of falling?: No Are you a smoker?: no During the past 4 weeks, how many drinks of wine, beer, or other alcoholic beverages did you have?: 6-9 drinks per week Do you exercise for about 20 minutes 3 or more times a week?: yes, most of the time Have you been given information to help with the following?: no: Hazards in your house that might hurt you? and no: Keeping track of your medications? How often do you have trouble taking medicines the way you have been told to take them?: I always take medicine as prescribed How confident are you that you can control & manage most of your health problems?: somewhat confident What is your race?: White Mini Mental State Exam (MMSE) Orientation What is the (year) (season) (date) (day) (month)?: year, season, date, day and month Score Score: 5 Activity of Daily Living Bathing - sponge bath, tub bath or shower: receives no assistance (gets in/out by self, if usual bathing means Dressing - getting clothes from closets & drawers, including inner/outer garments & fasteners.: gets clothes & gets completely dressed without help Toileting - going to the 'toilet room' for urine/bowel elimination & cleaning self/arranging clothes: goes to toilet room, cleans self, arranges clothes without help Transfer: moves in & out of bed and chair without help (may use support object) Continence: controls urination/bowel movements completely by self Feeding: feeds self without help Total Score: 0 Information obtained from: patient Using telephone: independent Traveling: independent Shopping: independent Preparing meals: independent Housework: independent Taking medicine: independent Managing money: independent PHQ-9 Over the last 2 weeks, how often have you been bothered by any of the following problems? 1. Little interest or pleasure in doing things: not at all 2. Feeling down, depressed, or hopeless: not at all 3. Trouble falling or staying asleep, or sleeping too much: not at all 4. Feeling tired or having little energy: several days 5. Poor appetite or overeating: not at all 6. Feeling bad about yourself - or that you are a failure or have let yourself or your family down: not at all 7. Trouble concentrating on things, such as reading the newspaper or watching television: not at all 8. Moving or speaking so slowly that other people could have noticed. Or the opposite - being so fidgety or restless that you have been moving around a lot more than usual: not at all 9. Thoughts that you would be better off or of hurting yourself in some way: not at all Total score: 1 Depression Screening Interpretation: Negative Depression Screening Done: Yes 03330 - PHQ-9 Billing: Yes Source: Developed by Drs. Kiel Webb, Rohini Yu, Wily Rudolph and colleagues, with an educational mike from [employer]. Physical Exam Vital Signs: Last Vital Signs Pulse 47 L 03/26/23 09:57 BP 124/68 03/26/23 09:57 Pulse Ox 98 03/26/23 09:57 Oxygen Delivery Method Room Air 03/26/23 09:57 BMI result Body Mass Index 27.8 Const General: cooperative and no acute distress Orientation/consciousness: patient oriented x3 HEENT Other: Whisper test: pass Neuro Other: Balance: Normal Get up and walk: able to Romberg: negative Tandem gait: able to General: patient oriented x3 Immunizations tetanus-diphtheria toxoids-Td 2 Lf unit-2 Lf unit/0.5 mL IM suspension Performing Provider: NARINDER Mayes [facility] Administered by: SISSY Boyd on 03/26/23 10:28 Dose Route Admin Location Dispensed Lot Number Expiration Date [facility] Academic Support Director 0.5 mL IM Left Deltoid 0.5 mL [id number] 08/19/23 [address]-1 [employer] VIS Given Date VIS Provided VIS Publication Date 03/26/23 Single Vaccine 20 Eligibility Eligibility Date Funding Source Not [facility] Eligible 03/26/23 [facility] funds Assessment & Plan Assessment & Plan (1) [place]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 [place] cell carcinoma center [facility][id number] , Radiation oncologist Dr. Reilly Camargo [phone] and Eleni Kelykeenan Cutaneous oncology [phone] Code(s): C4A.72 - [place] cell carcinoma of left lower limb, including hip Plan: Continue to follow-up with Dermatology (2) Adult general medical exam: Code(s): Z00.00 - Encounter for general adult medical examination without abnormal findings Plan: Repeat in 1 year (3) BPH (benign prostatic hyperplasia): Code(s): N40.0 - Benign prostatic hyperplasia without lower urinary tract symptoms Qualifiers: Lower urinary tract symptom presence: unspecified whether lower urinary tract symptoms present Qualified Code(s): N40.0 - Benign prostatic hyperplasia without lower urinary tract symptoms Plan: Was seen by Urology in the past (4) Hypercholesterolemia: Code(s): E78.00 - Pure hypercholesterolemia, unspecified Plan: Continue current treatment Low-cholesterol diet Continue to follow-up with cardiology (5) CAD (coronary artery disease): Comment: Angioplasty 1993 Dr. Trimble echo October 2016 aortic dilatation 3.7 moderate , EF 55-60% echo October 2017 EF 60% moderate aorta 3.8 it February 2020 normal LV function 60-65% abnormal left ventricle diastolic function, mildly dilated atrium left, moderate aortic stenosis, I aorta 3.4 cm June 2021 ejection fraction 55-60% dilated left atrium PFO moderate Code(s): I25.10 - Atherosclerotic heart disease of [place] coronary artery without angina pectoris Qualifiers: Associated angina: without angina Coronary Disease-Associated Artery/Lesion type: [place] artery [place] vs. transplanted heart: [place] heart Qualified Code(s): I25.10 - Atherosclerotic heart disease of [place] coronary artery without angina pectoris Plan: Continue to follow-up with cardiology (6) Barretts esophagus: Code(s): K22.70 - Kruse's esophagus without dysplasia Qualifiers: Kruse's esophagus type: without dysplasia Qualified Code(s): K22.70 - Kruse's esophagus without dysplasia Plan: Omeprazole 20 mg daily (7) GERD (gastroesophageal reflux disease): Code(s): K21.9 - Gastro-esophageal reflux disease without esophagitis Plan: Omeprazole 20 mg daily Avoid GERD trigger foods Do not lay down 2-3 hours after evening meal (8) Hypertension: Code(s): I10 - Essential (primary) hypertension Qualifiers: Hypertension type: essential hypertension Qualified Code(s): I10 - Essential (primary) hypertension Plan: Continue current treatment Low-sodium diet and exercise as tolerated (9) [place]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: Code(s): C4A.59 - [place] cell carcinoma of other part of trunk Plan: Same as above Orders: Orders Td State Immunization Today Z23 - Encounter for immunization Quality Reporting (2019) Depression/Bipolar (159/160/161/177) PHQ-9: Total score: 1 Coding Level of Care Code Medicare Subsequent (G0439) Diagnoses [place] cell skin cancer of left thigh C4A.72 Adult general medical exam Z00.00 Benign prostatic hyperplasia, unspecified whether lower urinary tract symptoms present N40.0 Lower urinary tract symptom presence: unspecified whether lower urinary tract symptoms present Hypercholesterolemia E78.00 Coronary artery disease involving [place] coronary artery of [place] heart without angina pectoris I25.10 Associated angina: without angina Coronary Disease-Associated Artery/Lesion type: [place] artery [place] vs. transplanted heart: [place] heart Kruse's esophagus without dysplasia K22.70 [place]'s esophagus type: without dysplasia GERD (gastroesophageal reflux disease) K21.9 Essential hypertension I10 Hypertension type: essential hypertension [place]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 C4A.59 CPT Codes Advance Care Planning - Time spent: 1-15 minutes, not on file ([id number]) Advance Care Planning Advance Care Planning discussion: Exists, not on file Date of discussion: 03/26/23 Who was present: pt and nonprofit financial controller Forms completed: None Time spent: 1-15 minutes, not on file Actual minutes spent: 3 Did not discuss due to Cultural/Spiritual beliefs: No
[2023-03-26 09:57] VITALS: BP 124/68; PULSE 47; O2SAT 98; BMI 27.8
[2023-03-26 10:22] VITALS: PULSE 50
== END 2023-03-26 10:33 | disposition home or self-care (01) ==
PROVIDERS: Visit Provider Nurse Practitioner Family
DX: Z00.00 Encounter for general adult medical examination without abnormal findings (principal); C4A.72 Merkel cell carcinoma of left lower limb, including hip; C4A.59 Merkel cell carcinoma of other part of trunk; Z23 Encounter for immunization; N40.0 Benign prostatic hyperplasia without lower urinary tract symptoms; E78.00 Pure hypercholesterolemia, unspecified; I25.10 Atherosclerotic heart disease of native coronary artery without angina pectoris; K22.70 Barrett's esophagus without dysplasia; K21.9 Gastro-esophageal reflux disease without esophagitis; I10 Essential (primary) hypertension
CPT/HCPCS: 1124F; 90471; 90714; G0439

== ENCOUNTER 2023-06-21 09:37 | Outpatient (AMB) | payer MEDICARE, SELFPAY ==
[2023-06-21 09:42] VITALS: BP 138/62; PULSE 63; O2SAT 99; BMI 27.7
--- NOTE | 2023-06-21 09:42 | MHC.PC.OV ---
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 Last seen in July 2022. Patient's colonoscopy is due this year and EGD also. Review of the notes has followed up with Cardiology April 2023 longstanding ischemic heart disease with chronic stable angina did have myocardial infarction 1994 angioplasty done has had TIA in 2011 moderate aortic stenosis PFO systemic hypertension hypercholesterolemia and BPH. 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 History of herpes genitalis Impaired glucose tolerance Hypercholesterolemia Ascending aorta dilatation Moderate aortic stenosis Barretts esophagus CAD (coronary artery disease) Overweight (BMI 25.0-29.9) History of asbestos exposure GERD (gastroesophageal reflux disease) Hypertension Surgical History Hx of squamous cell carcinoma excision Hx of colonoscopy History of esophagogastroduodenoscopy (EGD) History of prostate surgery History of vasectomy History of appendectomy Family History Father Hypertension CVD (cardiovascular disease) Mother Diabetes Past heart attack Social History Housing: House Alcohol intake: current Alcohol intake frequency: 0-2 drinks per day Alcohol type: beer Patient Tobacco Use Status: Former Tobacco user Quit Date: 1995 Tobacco use type: Cigarette Years Smoked: 25 years ago e-Cigarette/Vaping Use: Never Used Second Hand Smoke Exposure: No Current occupational status: retired Cognitive needs: No Hearing needs: No Vision needs: Yes Questionnaire Thrive Questionnaire Date Thrive assessed: 06/21/23 I am a: Patient What is your living situation today?: I have a steady place to live Within the past 12 months, did the food you bought not last and you didn't have the money to get more?: Never true Within the past 12 months, did you worry whether your food would run out before you got money to buy more?: Never true Do you have trouble paying for medicines?: No Do you have trouble getting transportation to medical appointments?: No Do you have trouble paying your heating and electricity bill?: No Do you have trouble taking care of your child, family member or friend?: No Do you have trouble with day-to-day activities such as bathing, preparing meals, shopping, managing finances, etc.?: No Are you currently unemployed and looking for a job?: No Are you interested in more education?: No Please select the resources that you would like help with: None THRIVE Score: 0 AUDIT C Alcohol Use Questionnaire (AUDIT-C) 1. How often do you have a drink containing alcohol?: 2-3 times a week 2. How many drinks containing alcohol do you have on a typical day when you are drinking?: 1 or 2 3. How often do you have six or more drinks on one occasion?: Never Total Score: 3 Score Reviewed/Action Taken: Yes FAIZA-7 AMB Questionnaire FAIZA-7 Date FAIZA - 7 assessed: 06/21/23 Source: Developed by Drs. Kiel Webb, Rohini Yu, Wily Rudolph and colleagues, with an educational mike from [employer]. Physical exam (Primary Care) Vital Signs: Last Vital Signs Pulse 63 06/21/23 09:42 BP 138/62 06/21/23 09:42 Pulse Ox 99 06/21/23 09:42 Oxygen Delivery Method Room Air 06/21/23 09:42 BMI result Body Mass Index 27.7 Tobacco/Smoking Status: Tobacco use Status Tobacco use date assessed 06/21/23 06/21/23 09:43 Patient Tobacco Use Status Former Tobacco user 06/21/23 09:43 Tobacco use type Cigarette 06/21/23 09:43 e-Cigarette/Vaping Use Never Used 06/21/23 09:43 Thrive Assessment: Date of Thrive Assessment Date Thrive assessed 06/21/23 06/21/23 09:43 Const General: alert; No acute distress Eyes Conjunctivae: conjunctivae normal Resp Auscultation: clear to auscultation bilaterally Cardio Rate: regular rate Rhythm: regular rhythm GI Inspection: Yes normal to inspection Extrem General: Yes normal to inspection and No edema Assessment and Plan Assessment & Plan (1) Hypertension: Code(s): I10 - Essential (primary) hypertension Qualifiers: Hypertension type: essential hypertension Qualified Code(s): I10 - Essential (primary) hypertension Plan: Continue with blood pressure medication. Decrease salt intake and exercise patient takes amlodipine 2.5 mg once a day atenolol 50 mg once a day and olmesartan 20 mg once a day (2) CAD (coronary artery disease): Comment: Angioplasty 1993 Dr. Trimble echo October 2016 aortic dilatation 3.7 moderate , EF 55-60% echo October 2017 EF 60% moderate aorta 3.8 it February 2020 normal LV function 60-65% abnormal left ventricle diastolic function, mildly dilated atrium left, moderate aortic stenosis, I aorta 3.4 cm June 2021 ejection fraction 55-60% dilated left atrium PFO moderate Code(s): I25.10 - Atherosclerotic heart disease of [place] coronary artery without angina pectoris Qualifiers: Associated angina: without angina Coronary Disease-Associated Artery/Lesion type: [place] artery [place] vs. transplanted heart: [place] heart Qualified Code(s): I25.10 - Atherosclerotic heart disease of [place] coronary artery without angina pectoris Plan: Control the cholesterol, weight, blood pressure, continue with aspirin 81 mg once a day (3) GERD (gastroesophageal reflux disease): Code(s): K21.9 - Gastro-esophageal reflux disease without esophagitis Plan: Avoid the foods that causes that usually spicy foods, tomato products, juices, coffee, soda and foods that your sensitive to. After eating do not lie down, allow 3-4 hours before in lie down. And keep the head of bed above 30 degrees to avoid the acid from going up. (4) Barretts esophagus: Code(s): K22.70 - Kruse's esophagus without dysplasia Qualifiers: Kruse's esophagus type: without dysplasia Qualified Code(s): K22.70 - Kruse's esophagus without dysplasia Plan: Reminded about EGD due for this year (5) Hypercholesterolemia: Code(s): E78.00 - Pure hypercholesterolemia, unspecified Plan: Avoid fried foods, chicken skin, eggs, butter margarine, pastries and meat. Be it pork or beef they have a lot of cholesterol February 2023 last blood work on Praluent and atorvastatin 80 mg once a day LDL goal of less than 70 (6) BPH (benign prostatic hyperplasia): Code(s): N40.0 - Benign prostatic hyperplasia without lower urinary tract symptoms Qualifiers: Lower urinary tract symptom presence: unspecified whether lower urinary tract symptoms present Qualified Code(s): N40.0 - Benign prostatic hyperplasia without lower urinary tract symptoms Plan: Stable (7) [place] cell skin cancer of left thigh: Comment: Angella Evitadon Pelletier M.D. [id number] , Radiation oncologist Dr. Reilly Camargo [phone] and Eleni Monk Cutaneous oncology [phone] Code(s): C4A.72 - [place] cell carcinoma of left lower limb, including hip Plan: Patient is being followed up by Dermatology (8) Moderate aortic stenosis: Code(s): I35.0 - Nonrheumatic aortic (valve) stenosis Plan: Patient is followed up by Cardiology seen in April 2023 (9) Colon cancer screening: Code(s): Z12.11 - Encounter for screening for malignant neoplasm of colon Plan: Reminded about colon cancer screening (10) Right lateral epicondylitis: Code(s): M77.11 - Lateral epicondylitis, right elbow Plan: advised heat and exercises - may use voltaren gel TID or diclofenac gel. if pain persist will refer to Dr. Short Coding Level of Care Code Est Pt Level 4 (06282) Diagnoses Essential hypertension I10 Hypertension type: essential hypertension Coronary artery disease involving [place] coronary artery of [place] heart without angina pectoris I25.10 Associated angina: without angina Coronary Disease-Associated Artery/Lesion type: [place] artery [place] vs. transplanted heart: [place] heart GERD (gastroesophageal reflux disease) K21.9 Kruse's esophagus without dysplasia K22.70 Kruse's esophagus type: without dysplasia Hypercholesterolemia E78.00 Benign prostatic hyperplasia, unspecified whether lower urinary tract symptoms present N40.0 Lower urinary tract symptom presence: unspecified whether lower urinary tract symptoms present [place] cell skin cancer of left thigh C4A.72 Moderate aortic stenosis I35.0 Colon cancer screening Z12.11 Right lateral epicondylitis M77.11
== END 2023-06-21 10:30 | disposition home or self-care (01) ==
PROVIDERS: PCP Internal Medicine; Visit Provider Internal Medicine
DX: I10 Essential (primary) hypertension (principal); C4A.72 Merkel cell carcinoma of left lower limb, including hip; I25.10 Atherosclerotic heart disease of native coronary artery without angina pectoris; K21.9 Gastro-esophageal reflux disease without esophagitis; K22.70 Barrett's esophagus without dysplasia; E78.00 Pure hypercholesterolemia, unspecified; N40.0 Benign prostatic hyperplasia without lower urinary tract symptoms; I35.0 Nonrheumatic aortic (valve) stenosis; Z12.11 Encounter for screening for malignant neoplasm of colon; M77.11 Lateral epicondylitis, right elbow
CPT/HCPCS: 99214

== ENCOUNTER 2023-09-20 08:33 | Outpatient (REF) | payer MEDICARE, SELFPAY ==
--- NOTE | ~2023-09-20 | XR_ITS ---
EXAMINATION: XR ELBOW, RIGHT CLINICAL INFORMATION: Right elbow pain. COMPARISON: None available. TECHNIQUE: AP, lateral, and oblique views of the right elbow. FINDINGS: No acute fracture or dislocation. No joint space narrowing or marginal osteophytes. No osseous erosion. Prominent olecranon spur with minimal adjacent soft tissue swelling. No significant joint effusion. Anterior dystrophic calcifications. XR/XR elbow RT min 3V IMPRESSION: Prominent olecranon spur with minimal adjacent soft tissue swelling. Findings could indicate olecranon bursitis.
== END 2023-09-20 08:34 | disposition home or self-care (01) ==
LOC: HO.HOSX 08:33
PROVIDERS: Visit Provider Physician Assistant
DX: M77.11 Lateral epicondylitis, right elbow (principal)
CPT/HCPCS: 73080; 99202

== ENCOUNTER 2023-09-20 10:00 | Outpatient (AMB) | payer MEDICARE, SELFPAY ==
[2023-09-20 10:05] VITALS: BMI 28.1
--- NOTE | 2023-09-20 10:05 | MHC.OFFVIS ---
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 Patient reports ongoing pain since May. He states that his pain is worse when swinging a kwaku. Pain is on the lateral aspect of the elbow. No injury or previous treatment. Dr. Medina recommended him Volteran which gave him relief. 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 The patient was seen by his PCP on 06/21/2023 with a complaint of right elbow pain beginning in 04/2023. The patient was referred to rheumatology at the [facility], and secondary to orthopedics by his PCP for evaluation of the right elbow pain. He was also prescribed Voltaren gel TID that has not given any specific relief, per PCP workload message. The patient contacted his PCP after some research, loni, stated he would prefer to treat his elbow conservatively versus surgically. While in the office today the patient reports ongoing pain in the right elbow since 05/2023. He reports an increase in pain when swinging a hammer. He claims his pain is on the lateral aspect of the right elbow. He denies any known injury or previous treatment. 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 History of herpes genitalis Impaired glucose tolerance Hypercholesterolemia Ascending aorta dilatation Moderate aortic stenosis Barretts esophagus CAD (coronary artery disease) Overweight (BMI 25.0-29.9) History of asbestos exposure GERD (gastroesophageal reflux disease) Hypertension Surgical History Hx of squamous cell carcinoma excision Hx of colonoscopy History of esophagogastroduodenoscopy (EGD) History of prostate surgery History of vasectomy History of appendectomy Family History Father Hypertension CVD (cardiovascular disease) Mother Diabetes Past heart attack Social History Housing: House Alcohol intake: current Alcohol intake frequency: 0-2 drinks per day Alcohol type: beer Patient Tobacco Use Status: Former Tobacco user Tobacco use type: Cigarette Years Smoked: 25 years ago e-Cigarette/Vaping Use: Never Used Second Hand Smoke Exposure: No Current occupational status: retired Cognitive needs: No Hearing needs: No Vision needs: Yes Review of Systems Const All systems reviewed & are unremarkable except as noted in HPI and below Physical Exam Vital Signs: BMI result Body Mass Index 28.1 Const General: cooperative and no acute distress Orientation/consciousness: patient oriented x3 Resp Effort & Inspection: normal respiratory effort and able to speak in complete sentences Cardio Peripheral pulses: Peripheral pulses 2+ throughout Skin General skin exam: no rashes or lesions noted Neuro General: patient oriented x3 Extrem Other: Right elbow: Normal to inspection. No ecchymosis, erythema, or edema. No tenderness to palpation over the olecranon. No tenderness to the medial epicondyle. Slight tenderness to palpation over the lateral epicondyle. Pain with resisted wrist extension of the lateral epicondyle. NVI. Assessment & Plan Assessment & Plan (1) Right lateral epicondylitis: Code(s): M77.11 - Lateral epicondylitis, right elbow Category: Medical Plan Mr. Quezada is a 73-year-old right hand dominant male who presents in the office today, as a new patient, for an evaluation of right elbow pain. The patient was seen by his PCP on 06/21/2023 with a complaint of right elbow pain beginning in 04/2023. The patient was referred to rheumatology at the [facility], and secondary to orthopedics by his PCP for evaluation of the right elbow pain. He was also prescribed Voltaren gel TID that has not given any specific relief, per PCP workload message. The patient contacted his PCP after some research, loni, stated he would prefer to treat his elbow conservatively versus surgically. While in the office today the patient reports ongoing pain in the right elbow since 05/2023. He reports an increase in pain when swinging a hammer. He claims his pain is on the lateral aspect of the right elbow. He denies any known injury or previous treatment. I recommended for the patient to get an OTC tennis elbow brace. He can continue to use the diclofenac topical cream previously prescribed. I sent a prescription for oral diclofenac 75 mg PO BID to the pharmacy. We discussed that should the brace, topical cream, and oral diclofenac not give the patient relief we would further discuss cortisone injections in the right elbow. Follow-up will be PRN, or sooner if needed. X-rays of the right elbow which were obtained while in the office today and were reviewed by me, Jaida Hernandez PA-C, revealed no acute fracture or dislocation. Orders: Orders XR elbow RT min 3V Today M25.529 - Pain in unspecified elbow Medications: New diclofenac sodium 75 mg PO BID PRN 60 tabs 0RF pain 30 days Patient Instructions: Scribed by Kelly Ness medical receptionist medical assistant, for Jaida Hernandez PA-C on 09/20/2023 at 10:22 am, EST. Coding Level of Care Code New Pt Level 4 (85622) Diagnoses Right lateral epicondylitis M77.11
== END 2023-09-20 10:22 | disposition home or self-care (01) ==
PROVIDERS: PCP Internal Medicine; Visit Provider Physician Assistant
DX: M77.11 Lateral epicondylitis, right elbow (principal)
CPT/HCPCS: 99204

== ENCOUNTER 2023-09-25 09:42 | Outpatient (AMB) | payer MEDICARE, SELFPAY ==
[2023-09-25 09:45] VITALS: BP 140/78; PULSE 75; O2SAT 98; BMI 28.1
--- NOTE | 2023-09-25 09:45 | A.OFFPC_ITS ---
Vital Signs 09/25/23 09:45 Height 5 ft 9 in Weight 190 lb BMI 28.1 BP 140/78 H Blood Pressure Location Lt brachial Position Sitting Pulse 75 Pulse Source Pulse Oximeter Pulse Oximetry (%) 98 Oxygen Delivery Method Room Air Intake Visit Reasons: cholesterol Allergies simvastatin Allergy (Unknown, Verified 09/25/23 09:45) Unknown Tobacco use date assessed: 06/21/23 Fall risk assessment: No Falls in past year Last assessed Fall Risk: 09/25/23 Dental Screening Dental Screen Date: 09/25/23 Did you have a dental visit in the last 12 months?: Yes Did you have a dental problem in the last 6 months where you did not have access to dental care?: No Was dental information given to patient?: Patient has dentist HPI cholesterol 2 HPI Details 73-year-old overweight male with hyperte nsion coronary artery disease GERD Barretts esophagus hypercholesterolemia BPH moderate aortic stenosis and 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 Last seen in 07/03/2023. Patient is due for endoscopy. Review of the notes had an echocardiogram done 06/04/2023 showing dilated asymmetrical septal hypertrophy ejection fraction 50-55% moderate to severe aortic stenosis 1+ (1.2) ascending aorta dilation 3.8. BP high here but at home is good. mayi cell pet scan once a year last fall . 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 History of herpes genitalis Impaired glucose tolerance Hypercholesterolemia Ascending aorta dilatation Moderate aortic stenosis Barretts esophagus CAD (coronary artery disease) Overweight (BMI 25.0-29.9) History of asbestos exposure GERD (gastroesophageal reflux disease) Hypertension Surgical History Hx of squamous cell carcinoma excision Hx of colonoscopy History of esophagogastroduodenoscopy (EGD) History of prostate surgery History of vasectomy History of appendectomy Family History Father Hypertension CVD (cardiovascular disease) Mother Diabetes Past heart attack Social History Housing: House Alcohol intake: current Alcohol intake frequency: 0-2 drinks per day Alcohol type: beer Patient Tobacco Use Status: Former Tobacco user Tobacco use type: Cigarette Years Smoked: 25 years ago e-Cigarette/Vaping Use: Never Used Second Hand Smoke Exposure: No Current occupational status: retired Cognitive needs: No Hearing needs: No Vision needs: Yes Questionnaire PHQ-9 Over the last 2 weeks, how often have you been bothered by any of the following problems? 1. Little interest or pleasure in doing things: not at all 2. Feeling down, depressed, or hopeless: not at all 3. Trouble falling or staying asleep, or sleeping too much: not at all 4. Feeling tired or having little energy: several days 5. Poor appetite or overeating: not at all 6. Feeling bad about yourself - or that you are a failure or have let yourself or your family down: not at all 7. Trouble concentrating on things, such as reading the newspaper or watching television: not at all 8. Moving or speaking so slowly that other people could have noticed. Or the opposite - being so fidgety or restless that you have been moving around a lot more than usual: not at all 9. Thoughts that you would be better off or of hurting yourself in some way: not at all Total score: 1 Depression Screening Interpretation: Negative Depression Screening Done: Yes 29947 - PHQ-9 Billing: Yes Source: Developed by Drs. Kiel Webb, Rohini Yu, Wily Rudolph and colleagues, with an educational mike from [email or web address]. Thrive Questionnaire Date Thrive assessed: 06/21/23 AUDIT C Alcohol Use Questionnaire (AUDIT-C) 1. How often do you have a drink containing alcohol?: 2-3 times a week 2. How many drinks containing alcohol do you have on a typical day when you are drinking?: 1 or 2 3. How often do you have six or more drinks on one occasion?: Never Total Score: 3 Score Reviewed/Action Taken: Yes FAIZA-7 AMB Questionnaire FAIZA-7 Date FAIZA - 7 assessed: 06/21/23 Source: Developed by Drs. Kiel Webb, Wily Putnamnke and colleagues, with an educational mike from [email or web address]. Physical exam (Primary Care) Vital Signs: Last Vital Signs Pulse 75 09/25/23 09:45 BP 140/78 H 09/25/23 09:45 Pulse Ox 98 09/25/23 09:45 Oxygen Delivery Method Room Air 09/25/23 09:45 BMI result Body Mass Index 28.1 Tobacco/Smoking Status: Tobacco use Status Tobacco use date assessed 06/21/23 09/25/23 09:52 Patient Tobacco Use Status Former Tobacco user 09/25/23 09:52 Tobacco use type Cigarette 09/25/23 09:52 e-Cigarette/Vaping Use Never Used 09/25/23 09:52 PHQ-9: PHQ-9 Score PHQ-9: Total score 1 09/25/23 09:52 Depression Screening Interpretation: Negative Thrive Assessment: Date of Thrive Assessment Date Thrive assessed 06/21/23 09/25/23 09:52 Const General: alert; No acute distress Eyes Conjunctivae: conjunctivae normal Resp Auscultation: clear to auscultation bilaterally Cardio Rate: regular rate Rhythm: regular rhythm GI Inspection: Yes normal to inspection Extrem General: Yes normal to inspection and No edema Assessment and Plan Assessment & Plan (1) Right lateral epicondylitis: Code(s): M77.11 - Lateral epicondylitis, right elbow Plan: Patient was seen by ortho and conservative management was given diclofenac can use the gel as well as elbow brace (2) Colon cancer screening: Code(s): Z12.11 - Encounter for screening for malignant neoplasm of colon Plan: Patient is reminded about colonoscopy (3) Moderate aortic stenosis: Comment: 05/2023 1.2 cm Code(s): I35.0 - Nonrheumatic aortic (valve) stenosis Plan: Patient is being monitored with May 2023 last echocardiogram moderate to severe (4) Hypercholesterolemia: Code(s): E78.00 - Pure hypercholesterolemia, unspecified Plan: Avoid fried foods, chicken skin, eggs, butter margarine, pastries and meat. Be it pork or beef they have a lot of cholesterol on atorvastatin 80 mg once a day goal of less than 70 (5) CAD (coronary artery disease): Comment: Angioplasty 1993 Dr. Trimble echo October 2016 aortic dilatation 3.7 moderate , EF 55-60% echo October 2017 EF 60% moderate aorta 3.8 it February 2020 normal LV function 60-65% abnormal left ventricle diastolic function, mildly dilated atrium left, moderate aortic stenosis, I aorta 3.4 cm June 2021 ejection fraction 55-60% dilated left atrium PFO moderate Code(s): I25.10 - Atherosclerotic heart disease of resighini coronary artery without angina pectoris Qualifiers: Coronary Disease-Associated Artery/Lesion type: res[place]ini artery [place] vs. transplanted heart: resighini heart Associated angina: without angina Qualified Code(s): I25.10 - Atherosclerotic heart disease of [place] coronary artery without angina pectoris Plan: Control the cholesterol, weight, blood pressure, continue with aspirin 81 mg once a day (6) Barretts esophagus: Code(s): K22.70 - Kruse's esophagus without dysplasia Qualifiers: Kruse's esophagus type: without dysplasia Qualified Code(s): K22.70 - Kruse's esophagus without dysplasia Plan: Avoid the foods that causes that usually spicy foods, tomato products, juices, coffee, soda and foods that your sensitive to. After eating do not lie down, allow 3-4 hours before in lie down. And keep the head of bed above 30 degrees to avoid the acid from going up. (7) Hypertension: Code(s): I10 - Essential (primary) hypertension Qualifiers: Hypertension type: essential hypertension Qualified Code(s): I10 - Essential (primary) hypertension Plan: Continue with blood pressure medication. Decrease salt intake and exercise takes atenolol 50 mg once a day amlodipine 2.5 mg once a day olmesartan 20 mg once a day Orders: Orders Complete Blood Count Auto Diff 3 Months I25.10 - Atherosclerotic heart disease of resighini coronary artery without angina pectoris Comprehensive Met. Panel 3 Months I25.10 - Atherosclerotic heart disease of resighini coronary artery without angina pectoris Lipid Panel 3 Months E78.00 - Pure hypercholesterolemia, unspecified, I25.10 - Atherosclerotic heart disease of res[place]ini coronary artery without angina pectoris Vitamin B12 and Folate 3 Months I25.10 - Atherosclerotic heart disease of resighini coronary artery without angina pectoris Free T4 (Free Thyroxine) 3 Months I25.10 - Atherosclerotic heart disease of resighini coronary artery without angina pectoris Thyroid Stimulating Hormone 3 Months I25.10 - Atherosclerotic heart disease of resighini coronary artery without angina pectoris Coding Level of Care Code Est Pt Level 4 (41750) Complex EM visit Add On G2211 Diagnoses Right lateral epicondylitis M77.11 Colon cancer screening Z12.11 Moderate aortic stenosis I35.0 Hypercholesterolemia E78.00 Coronary artery disease involving resighini coronary artery of res[place]ini heart without angina pectoris I25.10 Coronary Disease-Associated Artery/Lesion type: resighini artery [place] vs. transplanted heart: resighini heart Associated angina: without angina Kruse's esophagus without dysplasia K22.70 Kruse's esophagus type: without dysplasia Essential hypertension I10 Hypertension type: essential hypertension
== END 2023-09-25 10:38 | disposition home or self-care (01) ==
PROVIDERS: PCP Internal Medicine; Visit Provider Internal Medicine
DX: M77.11 Lateral epicondylitis, right elbow (principal); Z12.11 Encounter for screening for malignant neoplasm of colon; I35.0 Nonrheumatic aortic (valve) stenosis; E78.00 Pure hypercholesterolemia, unspecified; I25.10 Atherosclerotic heart disease of native coronary artery without angina pectoris; K22.70 Barrett's esophagus without dysplasia; I10 Essential (primary) hypertension
CPT/HCPCS: 99214; G2211

== ENCOUNTER 2024-02-05 09:19 | Outpatient (REF) | payer MEDICARE, SELFPAY ==
[2024-02-05 09:46] LABS: MANUAL DIFF FLAG NO
[2024-02-05 10:32] LABS: Basophils Percent Auto 0.4 % (0-2); Eosinophils Absolute Auto 0.1 X10*3/uL (0.0-0.4); Eosinophils Percent Auto 1.3 % (0-4); Hemoglobin 14.4 g/dl (14.0-18.0); Imm Gran Abs Auto 0.02 X10*3/uL (0.00-0.03); Imm Gran Pct Auto 0.4 % (0.0-0.4); Lymphocytes Absolute Auto 0.8 X10*3/uL (1.2-4.9); Lymphocytes Percent Auto 16.2 % (20-40); Mean Corpuscular HGB Conc 32.7 g/dl (31.0-36.0); Mean Corpuscular Hemoglobin 30.5 pg (27.0-33.0); Mean Corpuscular Volume 93.2 fL (80.0-98.0); Mean Platelet Volume 10.3 fL (9.4-12.4); Monocytes Absolute Auto 0.4 X10*3/uL (0.1-1.2); Monocytes Percent Auto 8.3 % (2-11); Neutrophils Absolute Auto 3.5 x10*3/uL (2.0-8.3); Neutrophils Percent Auto 73.4 % (45-73); Platelet Count 132 X10*3/uL (160-400); Red Blood Count 4.72 X10*6/uL (4.60-5.80); Red Cell Distribution Width 13.1 % (11.0-16.0); White Blood Count 4.7 X10*3/uL (4.8-10.8)
[2024-02-05 11:53] LABS: Alanine Aminotransferase 16 U/L (0-40); Albumin Level 3.9 g/dL (3.5-5.0); Alkaline Phosphatase 54 U/L (39-117); Anion Gap 10 (12-20); Aspartate Amino Transferase 27 U/L (5-37); Bilirubin Total 0.6 mg/dL (0.0-1.0); Blood Urea Nitrogen 15 mg/dL (9-16); Calcium 9.2 mg/dL (8.4-10.2); Carbon Dioxide 28 mmol/L (22-29); Chloride 108 mmol/L (96-108); Cholesterol 132 mg/dL (<200); Estimated Glomerular Filt Rate > 60; Glucose Random 106 mg/dL (60-115); HDL Cholesterol 65 mg/dL (>40); LDL Cholesterol Calculated 54 mg/dL (<100); Potassium 4.5 mmol/L (3.3-5.1); Sodium 141 mmol/L (135-145); Total Protein 6.5 g/dL (6.5-8.0); Triglycerides 67 mg/dL (<150)
[2024-02-05 12:01] LABS: Folate 15.3 ng/mL (> or = 4.0); Vitamin B12 397 pg/mL (200-900)
[2024-02-05 12:15] LABS: Free T4 (Free Thyroxine) 0.63 ng/dL (0.71-1.85); Thyroid Stimulating Hormone 2.82 uIU/mL (0.32-4.0)
== END 2024-02-05 09:20 | disposition home or self-care (01) ==
LOC: HO.LAB 09:19
PROVIDERS: PCP Internal Medicine; Visit Provider Internal Medicine
DX: I25.10 Atherosclerotic heart disease of native coronary artery without angina pectoris (principal); E78.00 Pure hypercholesterolemia, unspecified
CPT/HCPCS: 36415; 80053; 80061; 82607; 82746; 84439; 84443; 85025

== ENCOUNTER 2024-02-11 09:57 | Outpatient (AMB) | payer MEDICARE, SELFPAY ==
[2024-02-11 09:59] VITALS: BP 148/70; PULSE 43; O2SAT 99; BMI 26.9
--- NOTE | 2024-02-11 09:59 | A.OFFPC_ITS ---
Vital Signs 02/11/24 09:59 Height 5 ft 9 in Weight 182 lb BMI 26.9 BP 148/70 H Blood Pressure Location Lt brachial Position Sitting Pulse 43 L Pulse Source Pulse Oximeter Pulse Oximetry (%) 99 Oxygen Delivery Method Room Air Intake Visit Reasons: HTN, Allergies simvastatin Allergy (Unknown, Verified 02/11/24 10:03) Unknown Tobacco use date assessed: 06/21/23 Fall risk assessment: No Falls in past year Last assessed Fall Risk: 02/11/24 Dental Screening Dental Screen Date: 09/25/23 HPI HTN, HPI Details 73-year-old overweight male(noted 8 lb w eight loss) with moderate aortic stenosis with last echocardiogram May 2023 hypercholesterolemia coronary artery disease Barretts esophagus hypertension last seen in September 25 2023. Patient's colonoscopy is planned this year. Review of the notes has seen Cardiology 12/09/2023 stable ischemic heart disease progressive aortic stenosis most likely requiring intervention in the next 2-3 years. 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 History of herpes genitalis Impaired glucose tolerance Hypercholesterolemia Ascending aorta dilatation Moderate aortic stenosis Barretts esophagus CAD (coronary artery disease) Overweight (BMI 25.0-29.9) History of asbestos exposure GERD (gastroesophageal reflux disease) Hypertension Surgical History Hx of squamous cell carcinoma excision Hx of colonoscopy History of esophagogastroduodenoscopy (EGD) History of prostate surgery History of vasectomy History of appendectomy Family History Father Hypertension CVD (cardiovascular disease) Mother Diabetes Past heart attack Social History Housing: House Alcohol intake: current Alcohol intake frequency: 0-2 drinks per day Alcohol type: beer Patient Tobacco Use Status: Former Tobacco user Tobacco use type: Cigarette Years Smoked: 25 years ago e-Cigarette/Vaping Use: Never Used Second Hand Smoke Exposure: No Current occupational status: retired Cognitive needs: No Hearing needs: No Vision needs: Yes Questionnaire Thrive Questionnaire Date Thrive assessed: 06/21/23 AUDIT C Alcohol Use Questionnaire (AUDIT-C) 1. How often do you have a drink containing alcohol?: 2-3 times a week 2. How many drinks containing alcohol do you have on a typical day when you are drinking?: 1 or 2 3. How often do you have six or more drinks on one occasion?: Never Total Score: 3 Score Reviewed/Action Taken: Yes FAIZA-7 AMB Questionnaire FAIZA-7 Date FAIZA - 7 assessed: 06/21/23 Source: Developed by Drs. Kiel Webb, Rohini Yu, Wily Rudolph and colleagues, with an educational mike from [email or web address]. Physical exam (Primary Care) Vital Signs: Last Vital Signs Pulse 43 L 02/11/24 09:59 BP 148/70 H 02/11/24 09:59 Pulse Ox 99 02/11/24 09:59 Oxygen Delivery Method Room Air 02/11/24 09:59 BMI result Body Mass Index 26.9 Tobacco/Smoking Status: Tobacco use Status Tobacco use date assessed 06/21/23 02/11/24 10:03 Patient Tobacco Use Status Former Tobacco user 02/11/24 10:03 Tobacco use type Cigarette 02/11/24 10:03 e-Cigarette/Vaping Use Never Used 02/11/24 10:03 Thrive Assessment: Date of Thrive Assessment Date Thrive assessed 06/21/23 02/11/24 10:03 Const General: alert; No acute distress Eyes Conjunctivae: conjunctivae normal Resp Auscultation: clear to auscultation bilaterally Cardio Rate: regular rate Rhythm: regular rhythm GI Inspection: Yes normal to inspection Extrem General: Yes normal to inspection and No edema Coding Level of Care Code Est Pt Level 4 (78185) Complex EM visit Add On G2211 Diagnoses Essential hypertension I10 Hypertension type: essential hypertension Coronary artery disease involving [place] coronary artery of [place] heart without angina pectoris I25.10 Coronary Disease-Associated Artery/Lesion type: [place] artery [place] vs. transplanted heart: quileute heart Associated angina: without angina Kruse's esophagus without dysplasia K22.70 Kruse's esophagus type: without dysplasia Hypercholesterolemia E78.00 Benign prostatic hyperplasia, unspecified whether lower urinary tract symptoms present N40.0 Lower urinary tract symptom presence: unspecified whether lower urinary tract symptoms present Moderate aortic stenosis I35.0 Colon cancer screening Z12.11 Assessment & Plan Assessment & Plan (1) Hypertension: Code(s): I10 - Essential (primary) hypertension Category: Medical Qualifiers: Hypertension type: essential hypertension Qualified Code(s): I10 - Essential (primary) hypertension Plan: Continue with blood pressure medication. Decrease salt intake and exercise on amlodipine 2.5 mg once a day atenolol 50 mg once a day olmesartan 20 mg once a day. BP at homer is good , (2) CAD (coronary artery disease): Comment: Angioplasty 1993 Dr. Trimble echo October 2016 aortic dilatation 3.7 moderate , EF 55-60% echo October 2017 EF 60% moderate aorta 3.8 it February 2020 normal LV function 60-65% abnormal left ventricle diastolic function, mildly dilated atrium left, moderate aortic stenosis, I aorta 3.4 cm June 2021 ejection fraction 55-60% dilated left atrium PFO moderate Code(s): I25.10 - Atherosclerotic heart disease of [place] coronary artery without angina pectoris Category: Medical Qualifiers: Coronary Disease-Associated Artery/Lesion type: [place] artery [place] vs. transplanted heart: quileute heart Associated angina: without angina Qualified Code(s): I25.10 - Atherosclerotic heart disease of [place] coronary artery without angina pectoris Plan: Control the cholesterol, weight, blood pressure, continue with aspirin 81 mg once a day (3) Barretts esophagus: Code(s): K22.70 - Kruse's esophagus without dysplasia Category: Medical Qualifiers: Kruse's esophagus type: without dysplasia Qualified Code(s): K22.70 - Kruse's esophagus without dysplasia Plan: Avoid the foods that causes that usually spicy foods, tomato products, juices, coffee, soda and foods that your sensitive to. After eating do not lie down, allow 3-4 hours before in lie down. And keep the head of bed above 30 degrees to avoid the acid from going up. Discussed about repeat EGD scheduled to see 02/2024 (4) Hypercholesterolemia: Code(s): E78.00 - Pure hypercholesterolemia, unspecified Category: Medical Plan: Avoid fried foods, chicken skin, eggs, butter margarine, pastries and meat. Be it pork or beef they have a lot of cholesterol LDL goal of less than 70 and triglyceride of less than 150 on atorvastatin 80 mg once a (5) BPH (benign prostatic hyperplasia): Code(s): N40.0 - Benign prostatic hyperplasia without lower urinary tract symptoms Category: Medical Qualifiers: Lower urinary tract symptom presence: unspecified whether lower urinary tract symptoms present Qualified Code(s): N40.0 - Benign prostatic hyperplasia without lower urinary tract symptoms Plan: Continue to monitor (6) Moderate aortic stenosis: Comment: 05/2023 1.2 cm Code(s): I35.0 - Nonrheumatic aortic (valve) stenosis Category: Medical Plan: Patient is being followed up by Cardiology and continuing to monitor. Echocardiogram was last done in 06/04/2023. (7) Colon cancer screening: Code(s): Z12.11 - Encounter for screening for malignant neoplasm of colon Category: Medical Plan: Patient is reminded about colonoscopy Medications: Discontinued diclofenac sodium Discontinued Reason: Patient Completed Course 75 mg PO BID 30 days PRN 60 tabs 0RF pain
== END 2024-02-11 11:26 | disposition home or self-care (01) ==
LOC: HO.HMCH 09:58
PROVIDERS: PCP Internal Medicine; Visit Provider Internal Medicine
DX: I10 Essential (primary) hypertension (principal); I25.10 Atherosclerotic heart disease of native coronary artery without angina pectoris; K22.70 Barrett's esophagus without dysplasia; E78.00 Pure hypercholesterolemia, unspecified; N40.0 Benign prostatic hyperplasia without lower urinary tract symptoms; I35.0 Nonrheumatic aortic (valve) stenosis; Z12.11 Encounter for screening for malignant neoplasm of colon

== ENCOUNTER → 2024-02-11 09:57 | Outpatient (BNVA) | payer MEDICARE, SELFPAY | PROVIDERS: PCP Internal Medicine; Visit Provider Internal Medicine | DX: I10 Essential (primary) hypertension (principal); I25.10 Atherosclerotic heart disease of native coronary artery without angina pectoris; K22.70 Barrett's esophagus without dysplasia; E78.00 Pure hypercholesterolemia, unspecified; N40.0 Benign prostatic hyperplasia without lower urinary tract symptoms; I35.0 Nonrheumatic aortic (valve) stenosis | CPT/HCPCS: 99212 ==

== ENCOUNTER 2024-03-30 10:08 | Outpatient (AMB) | payer MEDICARE, SELFPAY ==
--- NOTE | 2024-03-30 10:15 | AM.OFFVISMDC ---
Intake Vital Signs 03/30/24 10:16 Height 5 ft 9 in Weight 181 lb BMI 26.7 BP 124/68 Blood Pressure Location Lt brachial Position Sitting Pulse 44 L Pulse Source Pulse Oximeter Pulse Oximetry (%) 96 Oxygen Delivery Method Room Air Intake Visit Reasons: [facility] G0439 Allergies simvastatin Allergy (Unknown, Verified 03/30/24 10:16) Unknown Medication List - Last Reconciled 03/30/24 by Linda Medina MD amlodipine 2.5 mg PO DAILY aspirin (Adult Aspirin Regimen) 81 mg PO DAILY atenolol 50 mg PO DAILY atorvastatin 80 mg PO BEDTIME 90 days [cbd oil ] [CBD oil PO] cholecalciferol (vitamin D3) 25 mcg PO .DAILY AT NOON cyanocobalamin (vitamin B-12) 1,000 mcg sublingual Q OTHER DAY [EMU oil topical] evolocumab (Repatha SureClick) 140 mg subcut Q2W folic acid 0.4 mg PO .DAILY AT NOON hydrocortisone 2.5% (Proctosol HC) 1 appl TN BID-QID PRN nystatin 1 appl topical BID-TID olmesartan 20 mg PO DAILY omeprazole 20 mg PO DAILY@0630 HPI [facility] G0439 HPI Details The patient is a 74-year-old male presenting with annual wellness visit. The patient has a history of essential hypertension, currently managed with amlodipine 2.5 mg, atenolol 50 mg, and olmesartan 20 mg daily. He reports stable blood pressure readings with no episodes of dizziness. The patient also has hyperlipidemia, previously treated with atorvastatin 80 mg and Repatha. He experienced issues with simvastatin in the past. The aortic valve stenosis, noted from prior evaluations, poses a concern; however, the patient denies symptoms such as shortness of breath or exertional dyspnea. The stenosis was previously measured with a valve size of 1.2 cm. He is scheduled for an echocardiogram yearly to monitor this condition. GERD symptoms have resolved with omeprazole treatment, with no current symptoms of heartburn. The patient has osteoarthritis, particularly affecting the right hip and left elbow, with intermittent exacerbations managed with Tylenol. The right hip pain varies in intensity and is described as deeper than typical arthritic discomfort, though no diagnostic imaging has been repeated recently. The patient occasionally uses CBD oil orally and topically for chronic elbow and hip pain relief. 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 Occasionally hears heart-related noises while at rest in quiet environments. - Respiratory: Denies dyspnea, orthopnea, shortness of breath - Gastrointestinal: Denies heartburn or dysphagia - Genitourinary: Reports nocturia once nightly; otherwise unremarkable - Neurological: Denies any seizures, syncope, or significant headache episodes - Musculoskeletal: Reports increased hip pain, particularly on the right side, without swelling or redness - Last blood work in January showed a platelet count and white blood cells on the lower side; mild elevation in blood sugar noted - LDL-C at 54, indicating controlled hyperlipidemia under current treatment [facility] Medical History (Updated 03/30/24 @ 10:35 by Linda Medina MD) COVID-19 virus infection Sebaceous cyst Medicare annual wellness visit, initial PFO (patent foramen ovale) Insomnia Scoliosis Arthritis Cancer, skin, squamous cell BPH (benign prostatic hyperplasia) 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 History of herpes genitalis Impaired glucose tolerance Hypercholesterolemia Ascending aorta dilatation Moderate aortic stenosis Barretts esophagus CAD (coronary artery disease) Overweight (BMI 25.0-29.9) History of asbestos exposure GERD (gastroesophageal reflux disease) Hypertension Surgical History Hx of squamous cell carcinoma excision Hx of colonoscopy History of esophagogastroduodenoscopy (EGD) History of prostate surgery History of vasectomy History of appendectomy Family History Father Hypertension CVD (cardiovascular disease) Mother Diabetes Past heart attack Social History (Updated 03/30/24 @ 10:47 by Linda Medina MD) Housing: House Alcohol intake: current Alcohol intake frequency: 0-2 drinks per day Alcohol type: beer Comment: 2 beers Qd Patient Tobacco Use Status: Former Tobacco user Tobacco use type: Cigarette Years Smoked: 25 years ago e-Cigarette/Vaping Use: Never Used Second Hand Smoke Exposure: No Current occupational status: retired Cognitive needs: No Hearing needs: No Vision needs: Yes Questionnaire Medicare Wellness Checkup [age] What gender do you identify with?: male During the past 4 weeks, how much have you been bothered by emotional problems such as feeling anxious, depressed, irritable, sad or downhearted, and blue?: not at all During the past 4 weeks, has your physical & emotional health limited your social activities with family, friends, neighbors, or groups?: not at all During the past 4 weeks, how much bodily pain have you generally had?: mild pain During the past 4 weeks, was someone available to help you if you needed & wanted help?: yes, as much as I wanted During the past 4 weeks, what was the hardest physical activity you could do for at least 2 minutes?: heavy Can you get to places out of walking distance without help? (For eg., can you travel alone on buses, taxis or drive your car?): Yes Can you go shopping for groceries or clothes without someone's help?: Yes Can you prepare your own meals?: Yes Can you do your housework without help?: Yes Because of any health problems, do you need the help of another person with your personal care needs such as eating, bathing, dressing or getting around the house?: No Can you handle your own money without help?: Yes During the past 4 weeks, how would you rate your health in general?: good During the past 4 weeks how have things been going for you?: pretty well Are you having difficulties driving your car?: no Do you always fasten your seat belt when you are in a car?: yes, usually During past 4 weeks, have you been bothered by the following: never: Falling or dizzy when standing up, Trouble eating well?, Teeth or denture problems? and Problems using the telephone? and seldom: Sexual problems? and Tiredness or fatigue? Have you fallen 2 or more times in the past year?: No Are you afraid of falling?: No Are you a smoker?: no During the past 4 weeks, how many drinks of wine, beer, or other alcoholic beverages did you have?: 6-9 drinks per week Do you exercise for about 20 minutes 3 or more times a week?: yes, most of the time Have you been given information to help with the following?: no: Hazards in your house that might hurt you? and no: Keeping track of your medications? How often do you have trouble taking medicines the way you have been told to take them?: I always take medicine as prescribed How confident are you that you can control & manage most of your health problems?: somewhat confident What is your race?: White PHQ-9 Over the last 2 weeks, how often have you been bothered by any of the following problems? 1. Little interest or pleasure in doing things: not at all 2. Feeling down, depressed, or hopeless: not at all 3. Trouble falling or staying asleep, or sleeping too much: not at all 4. Feeling tired or having little energy: several days 5. Poor appetite or overeating: not at all 6. Feeling bad about yourself - or that you are a failure or have let yourself or your family down: not at all 7. Trouble concentrating on things, such as reading the newspaper or watching television: not at all 8. Moving or speaking so slowly that other people could have noticed. Or the opposite - being so fidgety or restless that you have been moving around a lot more than usual: not at all 9. Thoughts that you would be better off or of hurting yourself in some way: not at all Total score: 1 Depression Screening Interpretation: Negative Depression Screening Done: Yes 00721 - PHQ-9 Billing: Yes Source: Developed by Drs. Kiel Webb, Rohini Yu, Wily Rudolph and colleagues, with an educational mike from [employer]. Thrive Questionnaire Date Thrive assessed: 06/21/23 FAIZA-7 AMB Questionnaire FAIZA-7 Date FAIZA - 7 assessed: 06/21/23 Source: Developed by Drs. Kiel Webb, Rohini Yu, Wily Rudolph and colleagues, with an educational mike from [employer]. Review of Systems Const Denies poor appetite and Denies weakness Eyes Denies no additional complaints ENT Reports Normal hearing present, Denies dizziness, Denies nasal congestion, Denies tinnitus and Denies sore throat Card Denies chest pain, Denies syncope, Denies rapid heart rate and Denies dyspnea Resp Denies cough and Denies dyspnea GI Denies change in stool character, Reports constipation, Denies diarrhea, Denies nausea and Denies vomiting Denies dysuria and Denies urinary frequency Neuro Reports Normal hearing present, Denies confusion, Denies dizziness, Denies syncope and Denies weakness Psych Denies confusion Physical Exam Vital Signs: Last Vital Signs Pulse 44 L 03/30/24 10:16 BP 124/68 03/30/24 10:16 Pulse Ox 96 03/30/24 10:16 Oxygen Delivery Method Room Air 03/30/24 10:16 BMI result Body Mass Index 26.7 Const General: No confusion Orientation/consciousness: No confusion HEENT Head: Yes normocephalic Ears: external ears normal and TM's normal bilaterally Face and sinus: Yes normal facial exam Mouth: moist mucous membranes Throat: Yes tonsils normal Eyes Conjunctivae: conjunctivae normal Pupils: Equal, round and reactive pupils present and Pupil accommodation reflex normal Direct Ophthalmoscopy: normal light reflex Neck Neck: No lymphadenopathy Thyroid: Thyroid normal Chest Chest palpation & inspection: normal inspection of the chest Resp Effort & Inspection: normal respiratory effort and no audible wheezes Auscultation: clear to auscultation bilaterally, no crackles, no wheezes and lung sounds not diminished Cardio Rate: regular rate Rhythm: regular rhythm Peripheral pulses: radial pulses present and dorsalis pedis present GI Palpation (GI): no masses Auscultation: normal bowel sounds and normoactive bowel sounds Rectal Exam - Male: Yes deferred Skin General skin exam: no rashes or lesions noted Rashes: no rashes Neuro General: No confusion Cranial nerves: Yes Equal, round and reactive pupils present and Yes Normal hearing present Cognition (Neuro): normal cognition Gait exam (Neuro): Normal gait present Motor exam (neuro): 5/5 motor strength present throughout Deep tendon reflexes (DTR's): Right brachioradialis reflex intensity grade: 2+, Left brachioradialis reflex intensity grade: 2+, Right patellar reflex intensity grade: 2+ and Left patellar reflex intensity grade: 2+ Extrem General: No edema Assessment & Plan Assessment & Plan (1) Hypertension: Code(s): I10 - Essential (primary) hypertension Qualifiers: Hypertension type: essential hypertension Qualified Code(s): I10 - Essential (primary) hypertension Plan: Continue with blood pressure medication. Decrease salt intake and exercise on amlodipine 2.5 mg once a day atenolol 50 mg once a day and olmesartan 20 mg once a day (2) Medicare annual wellness visit, subsequent: Code(s): Z00.00 - Encounter for general adult medical examination without abnormal findings Plan: Patient is advised to eat healthy, keep well hydrated, keep active and have adequate sleep. (3) CAD (coronary artery disease): Comment: Angioplasty 1993 Dr. Trimble echo October 2016 aortic dilatation 3.7 moderate , EF 55-60% echo October 2017 EF 60% moderate aorta 3.8 it February 2020 normal LV function 60-65% abnormal left ventricle diastolic function, mildly dilated atrium left, moderate aortic stenosis, I aorta 3.4 cm June 2021 ejection fraction 55-60% dilated left atrium PFO moderate Code(s): I25.10 - Atherosclerotic heart disease of inupiat coronary artery without angina pectoris Qualifiers: Associated angina: without angina Coronary Disease-Associated Artery/Lesion type: inupiat artery [place] vs. transplanted heart: inupiat heart Qualified Code(s): I25.10 - Atherosclerotic heart disease of inupiat coronary artery without angina pectoris Plan: Control the cholesterol, weight, blood pressure, patient is on aspirin 81 mg once a day (4) Barretts esophagus: Code(s): K22.70 - Kruse's esophagus without dysplasia Qualifiers: Kruse's esophagus type: without dysplasia Qualified Code(s): K22.70 - Kruse's esophagus without dysplasia Plan: Avoid the foods that causes that usually spicy foods, tomato products, juices, coffee, soda and foods that your sensitive to. After eating do not lie down, allow 3-4 hours before in lie down. And keep the head of bed above 30 degrees to avoid the acid from going up. Patient has a planned procedure EGD with Gastroenterology (5) Hypercholesterolemia: Code(s): E78.00 - Pure hypercholesterolemia, unspecified Plan: Avoid fried foods, chicken skin, eggs, butter margarine, pastries and meat. Be it pork or beef they have a lot of cholesterol LDL goal of less than 70 and triglyceride of less than 150. Patient on atorvastatin 80 mg once a day and Repatha every 2 weeks. (6) BPH (benign prostatic hyperplasia): Code(s): N40.0 - Benign prostatic hyperplasia without lower urinary tract symptoms Qualifiers: Lower urinary tract symptom presence: unspecified whether lower urinary tract symptoms present Qualified Code(s): N40.0 - Benign prostatic hyperplasia without lower urinary tract symptoms Plan: Continue with present medication. 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 [id number] , Radiation oncologist Dr. Reilly Camargo [phone] and Eleni Monk Cutaneous oncology [phone] Code(s): C4A.72 - [place] cell carcinoma of left lower limb, including hip Plan: Continue to follow-up with Hematology-Oncology. (8) Moderate aortic stenosis: Comment: 05/2023 1.2 cm Code(s): I35.0 - Nonrheumatic aortic (valve) stenosis Plan: Patient's last echocardiogram was in 06/04/2023 and will follow-up with an echo this coming year. (9) Colon cancer screening: Code(s): Z12.11 - Encounter for screening for malignant neoplasm of colon Plan: Patient is reminded about colonoscopy. Plan - Continue current hypertension medications and monitoring; no adjustments needed - Maintain atorvastatin and Repatha for hyperlipidemia; regular lipid profile monitoring suggested - Schedule routine echocardiography to assess the progression of aortic valve stenosis; continue monitoring for new symptoms - Continue omeprazole for management of GERD; discontinue if asymptomatic for prolonged period - Manage osteoarthritis symptomatically; consider escalating to NSAIDs or other pharmacologic therapies if Tylenol is insufficient - Encourage hydration and reduce alcohol intake; re-evaluate dietary and lifestyle interventions if required During the visit, I discussed the importance of consistent management of chronic conditions, including hypertension, hyperlipidemia, and GERD. We reviewed the current medication regimen and the necessity for regular follow-ups for aortic stenosis monitoring. I emphasized maintaining hydration and reducing alcoholic beverages to mitigate cardiovascular risk. Lung auscultation findings were consistent with prior examinations. I addressed the patient's orthopedic complaints, with a particular focus on right hip pain, outlining potential escalation in treatment if needed. I reiterated the significance of ongoing health screenings and vaccinations, highlighting the upcoming colonoscopy consultation in June. The patient was informed about available preventative vaccines, including RSV, though it was deemed non-essential at this time. All findings and recommendations were discussed, and the patient's queries were addressed satisfactorily.- Continue taking prescribed medications as directed - Monitor for any new symptoms, particularly regarding cardiac or musculoskeletal health - Ensure adequate daily water intake and reduce alcohol consumption - Follow up on scheduled colonoscopy and echocardiography appointments - Remain physically active, though ease off activities that aggravate joint pain - Contact the office if any concerning symptoms develop or for medication refills - Return in six months for routine follow-up unless issues arise sooner Quality Reporting (2019) Depression/Bipolar (159/160/161/177) PHQ-9: Total score: 1 Coding Level of Care Code Medicare Subsequent (G0439) Diagnoses Essential hypertension I10 Hypertension type: essential hypertension Medicare annual wellness visit, subsequent Z00.00 Coronary artery disease involving inupiat coronary artery of inupiat heart without angina pectoris I25.10 Associated angina: without angina Coronary Disease-Associated Artery/Lesion type: inupiat artery [place] vs. transplanted heart: inupiat heart Kruse's esophagus without dysplasia K22.70 Kruse's esophagus type: without dysplasia Hypercholesterolemia E78.00 Benign prostatic hyperplasia, unspecified whether lower urinary tract symptoms present N40.0 Lower urinary tract symptom presence: unspecified whether lower urinary tract symptoms present [place] cell skin cancer of left thigh C4A.72 Moderate aortic stenosis I35.0 Colon cancer screening Z12.11 Additional Codes PHQ-9 - 58249 - PHQ-9 Billing: Yes ([id number])
[2024-03-30 10:16] VITALS: BP 124/68; PULSE 44; O2SAT 96; BMI 26.7
== END 2024-03-30 11:03 | disposition home or self-care (01) ==
PROVIDERS: PCP Internal Medicine; Visit Provider Internal Medicine
DX: Z00.00 Encounter for general adult medical examination without abnormal findings (principal); I10 Essential (primary) hypertension; C4A.72 Merkel cell carcinoma of left lower limb, including hip; I25.10 Atherosclerotic heart disease of native coronary artery without angina pectoris; K22.70 Barrett's esophagus without dysplasia; E78.00 Pure hypercholesterolemia, unspecified; N40.0 Benign prostatic hyperplasia without lower urinary tract symptoms; I35.0 Nonrheumatic aortic (valve) stenosis; Z12.11 Encounter for screening for malignant neoplasm of colon

== ENCOUNTER → 2024-03-30 10:08 | Outpatient (BNVA) | payer MEDICARE, SELFPAY | PROVIDERS: PCP Internal Medicine; Visit Provider Internal Medicine | DX: Z00.00 Encounter for general adult medical examination without abnormal findings (principal); I10 Essential (primary) hypertension; E78.5 Hyperlipidemia, unspecified; I25.10 Atherosclerotic heart disease of native coronary artery without angina pectoris; K22.70 Barrett's esophagus without dysplasia; E78.00 Pure hypercholesterolemia, unspecified; N40.0 Benign prostatic hyperplasia without lower urinary tract symptoms; C4A.72 Merkel cell carcinoma of left lower limb, including hip; I35.0 Nonrheumatic aortic (valve) stenosis; Z79.899 Other long term (current) drug therapy | CPT/HCPCS: 96127 ==

== ENCOUNTER 2024-08-31 12:31 | Inpatient (IN) | payer MEDICARE, SELFPAY ==
[2024-08-31] VITALS (7 sets, daily range): BP systolic 120–135; BP diastolic 72–85; PULSE 67–90; RESP 12–20; TEMP 36.3–36.8; O2SAT 95–98; BMI 26.6; BMI 28.0
--- NOTE | ~2024-08-31 | XR_ITS ---
EXAMINATION: XR CHEST 2 VIEWS HISTORY: chest pain COMPARISON: Comparison is made with the prior examination dated 03/07/2020. FINDINGS: PA and lateral views of the chest are submitted. Again seen are calcified pleural plaques bilaterally, consistent with prior asbestos exposure. The lungs are expanded and clear. There is no pleural effusion, pneumothorax, or pulmonary vascular congestion. The heart is normal in size. There is mild degenerative disc disease of the spine. 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 No acute cardiopulmonary abnormality. Electronically signed by: Kiel Wiseman MD 08/31/2024 02:10 PM EDT
--- NOTE | 2024-08-31 12:47 | ECG_ITS ---
Test Reason : CHEST PAIN Blood Pressure : */* mmHG Vent. Rate : 82 BPM Atrial Rate : * BPM P-R Int : * ms QRS Dur : 92 ms QT Int : 374 ms P-R-T Axes : * -26 35 degrees QTcB Int : 436 ms Atrial fibrillation Minimal voltage criteria for LVH, may be normal variant ( R in aVL ) Abnormal ECG When compared with ECG of 07-Mar-2020 12:41, Atrial fibrillation has replaced Sinus rhythm Nonspecific T wave abnormality has replaced inverted T waves in Inferior leads Referred By: Nida Diaz Electronically Signed By: Chon Hodgson
--- NOTE | 2024-08-31 12:49 | PC.NURSE ---
Patient is a 74 yo male who presents with intermittent mid sternal chest pain with assoc sob while mowing but has noticed the pain for the past 3 days [facility] a [facility] of essential hypertension, hyperlipidemia, aortic valve stenosis, the stenosis was previously measured with a valve size of 1.2 cm., GERD symptoms and osteoarthritis. cardiac monitor technician applied and patient noted to be in afib. Patient states he has been diagnosed with benign irregularity. Denies any CP at this time. Lungs clear bilat. Respirations even and non-labored. Abdomen soft, non-tender with positive bowel sounds. No LE edema noted.
[2024-08-31 13:07] LABS: MANUAL DIFF FLAG NO
--- OUTSIDE RECORDS SUMMARY | 2024-08-31 13:11 | XMS_ITS | Clinical Summary ---
Author Organization [facility] Address [address] [address] Phone Care Team Providers Care Optical Designer Name Role Phone Linda Medina MD Primary Care Provider [phone] Allergies Active Allergy Reactions Criticality Noted Date [...] mg tabletIndicatio ns:Atherosclero tic heart disease of nikolai coronary artery with other forms of angina [...] artery disease of n ative artery of nikolai heart with stable angina pectoris ([facility] V24) 09/05/2020 Overview (07/28/2024): 1995 - sustained [...] Description 06/30/2024 1:10 PM EDT Office Visit [facility] [address] [place] [address] [place] [address] Gomez Cabral NP Nonrheumatic aortic (valve) stenosis (Primary Dx); 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 ([facility] V24); History of TIA (transient ischemic attack); Essential hypertension; Preop cardiovascular exam; Hyperlipidemia, unspecified hyperlipidemia type 06/16/2024 Telephone [facility] [address] [place] [address] Kiel Trimble MD Echo Results 06/16/2024 Telephone [facility] [address] [place] [address] Kiel Trimble MD Call from MD office 06/10/2024 10:00 AM EST Ancillary Procedure [facility] [address] [place] [phone] Nonrheumatic aortic (valve) stenosis from Last 3 [...] Description 06/15/2025 9:00 AM EST Ancillary Procedure [facility] [address] [place] [address] Health Maintenance Due Date Last [...] (06/10/2024 10:42 AM EST) Left Atrium Minor [place] 5.9 cm CV PACS Left Atrium Major [place] 6.1 cm CV PACS LA Area Sys [...] Peak E Alexy 0.77 m/s CV PACS MD End Max Velocity 1.0 m/s CV PACS [...] Blood Venous blood specimen / Unknown Result [facility] Historical Provider LAB BLOOD ORDERABLES Renee l Result from Last 3 Months or Most Recently Relevant to Health Maintenance Insurance MEDICARE [facility] Care Teams Optical Designer Relationship Specialty Start Date End Date Linda Medina MD [address] [place] [address] Dr [facility] [place] [address] PCP - General 12/26/12
--- OUTSIDE RECORDS SUMMARY | 2024-08-31 13:12 | XMS_ITS | Patient Health Record ---
Author Organization [facility] Address [address] [place] [address] Care Team Providers Care Janitorial Account Manager Name Role Phone Po Linda OSEGUERA Primary Care Provider Kiel Chavez [phone] Allergies No Known Allergies Reason For Referral [...] Status Risk Notes Problem Colon cancer screening (578125291) Colon cancer screening (Z12.11) Active confirmed Problem 043017880 Gastroesophageal reflux disease without esophagitis (K21.9) Active confirmed Problem 546134008 Barretts esophag us without dysplasia (K22.70) Active confirmed Problem Kruse's esophagus (736966916) Kruse''s esophagus without dysplasia (K22.70) Active confirmed Vital Signs Blood pressure diastolic 11 mm Hg 06/16/2024 Height 69.5 in 06/16/2024 Blood pressure systolic 111 mm Hg 06/16/2024 Weight 180 lbs 06/16/2024 BMI 26.2 kg/m2 06/16/2024 Procedures Procedure Date Ordered Date Performed Result Body Sit e UPPER GI ENDOSCOPY 06/16/2024 N/A COLONOSCOPY 06/16/2024 N/A Encounters Encounter Location Date Provider Diagnosis [facility] [address] [place] [address] 06/16/2024 Kiel Mesa Barretts esophagus without dysplasia [...] Name:Kiel Mesa , 09/23/2024 11:30:00 AM, [address] , [place], [place], [phone], Insurance Providers Payer Name Payer Address Payer Phone Subscriber Number Group Number Insured Name Patient Relationship to Insured Coverage Start Date Coverage End Date [place] [address] [place] [address] [phone] [id number] CHERYL CLAYTON Self - patient is the insured 7 MEDEX ATTN CLAIMS [address] [place] [address] [phone] [id number] CHERYL CLAYTON Self - patient is the insured Medical (General) History Medical History History ICD Code Colonoscopy 03-02-2004--only hyperplasti c polyps HTN [place] in 1993 with subsequent a ngioplasty---history of angina--Dr. Evans at [facility]--ETT was OK--no cath since 1993 Hyperlipidemia Denies [...] followed by Echo's with Dr. 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
--- OUTSIDE RECORDS SUMMARY | 2024-08-31 13:12 | XMS_ITS ---
Author Organization [facility] Address [address] [place] [address] Care Team Providers Care Marketing Reporting Analyst Name Role Phone Linda Medina MD Primary Care Provider Kiel Chavez [phone] Allergies No Known Allergies REASON FOR VISIT [...] N/A Encounters Encounter Location Date Provider Diagnosis [facility] [address] [place] [address] 06/16/2024 Kiel Mesa Barretts esophagus without dysplasia [...] Provider Name:Kiel Mesa , 09/23/2024 11:30:00 AM, [address] [place] [address], [phone], Progress Notes * CHERYL CLAYTON RDOB:[birth year] (74 yo M)Acc No.[id number]:06/16/2024 Progress Notes Patient:?CHERYL CLAYTON Provider:?Kiel Mesa MD :1950???Age:74 Y???Sex:Male Adrina e:06/16/2024 Address:[address] [place], [place] [address] Pcp:Linda Medina MD Subjective: * Chief Complaints: * ???Patient presents today fo r a colon screening * Medical History:? * Surgical History:?Basal cell cancer removed from the left ear appendectomy TUNA and laser surgery for the prostate Toe surgery-bone spur Vasectomy Prostatectomy [place] Cell Carcinoma-left leg and right buttock-20[facility] * Hospitalization/Major Diagno stic Procedure:?No Hospitalization History. [...] 5, Interpretation: Positive.?Miscellaneous:?Marital status: . 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 ???Nonsmoker > 10 yrs ago; 2-3 beers [...] List reviewed and reconciled with the patientDiscontinued [place]-3 1000 MG Capsule 1 capsule Orally TID [...] Evans regarding your aortic stenosis * Procedure Codes:?39896 UPPR GI ENDOSCOPY, [id number] DIAGNOSTIC [id number] COLORECTAL CA SCREEN DOC [id number] TOBACCO [id number]-HZESO1830 BP SCR NOT PRFRM REC REASON [id number] RCMND FLW-UP 10 YRS DOCD * Preventive [...] MD Date:? 025 Generated for Roni morgan/Geoff/Delontesmitting on:?08/31/2024 11:52 AM EDT
--- OUTSIDE RECORDS SUMMARY | 2024-08-31 13:12 | XMS_ITS ---
Author Organization [facility] Address [address] [place] [address] Care Team Providers Care Flatwork Assembler Name Role Phone Linda Medina MD Primary Care Provider Kiel Chavez [phone] REASON FOR VISIT colon screening, egd screening Encounters Encounter Location Date Provider Diagnosis [facility] [address] [place] [phone] 02/27/2024 Kiel Mesa Plan Of Treatment Next Appt Details Provider Name:Kiel Mesa , 09/23/2024 11:30:00 AM, [address] [place] [address] , [place], [place], [phone], Progress Notes * CHERYL CLAYTON RDOB:[birth year] (74 yo M)Acc No.[id number]:02/27/2024 Progress Notes Patient:?CHERYL CLAYTON Provider:?Kiel Mesa MD :1950???Age:73 Y???Sex:Male Adrian e:02/27/2024 [address] [id number] Pcp:Linda Medina MD Subjective: * Chief Complaints: [...] MD Date:? 024 Generated for Roni morgan/Geoff/Lanre on:?08/31/2024 01:11 PM EDT
[2024-08-31 13:14] LABS: Basophils Percent Auto 0.7 % (0-2); Eosinophils Absolute Auto 0.1 X10*3/uL (0.0-0.4); Eosinophils Percent Auto 1.5 % (0-4); Hematocrit 45.2 % (42.0-52.0); Imm Gran Abs Auto 0.02 X10*3/uL (0.00-0.03); Imm Gran Pct Auto 0.4 % (0.0-0.4); Lymphocytes Absolute Auto 0.8 X10*3/uL (1.2-4.9); Lymphocytes Percent Auto 14.9 % (20-40); Mean Corpuscular HGB Conc 33.2 g/dl (31.0-36.0); Mean Corpuscular Hemoglobin 30.7 pg (27.0-33.0); Mean Corpuscular Volume 92.4 fL (80.0-98.0); Mean Platelet Volume 10.1 fL (9.4-12.4); Monocytes Absolute Auto 0.5 X10*3/uL (0.1-1.2); Monocytes Percent Auto 8.4 % (2-11); Neutrophils Percent Auto 74.1 % (45-73); Platelet Count 132 X10*3/uL (160-400); Red Blood Count 4.89 X10*6/uL (4.60-5.80); Red Cell Distribution Width 13.5 % (11.0-16.0); White Blood Count 5.4 X10*3/uL (4.8-10.8)
--- NOTE | 2024-08-31 13:19 | ED_ITS ---
HPI - Chest Pain General Chief Complaint: Chest Pain Stated Complaint: CP X3D FROM [facility] PER EMS Time Seen by Provider: 08/31/24 13:19 History of Present Illness ED Provider: HPI narrative: This is a 74-year-old male with history of CAD, aortic stenosis, hyperlipidemia, hypertension, presenting with palpitations and exertional chest pain he has had amputations past few days and today as he was moment alone around 11:00 he started developing midsternal chest pain when he stopped moving he had went away, he is chest pain-free at this time. He has had palpitations in the past. He reports seeing his meat processing center manager a month ago had an echo done. No fevers or chills no pleurisy reported. Related Data Home Medications ?Medication ?Instructions ?Recorded ?Confirmed aspirin 81 mg tablet,delayed 81 mg PO DAILY 02/16/20 03/30/24 release (Adult Aspirin Regimen) cholecalciferol (vitamin D3) 25 25 mcg PO .DAILY AT NOON 02/16/20 03/30/24 mcg (1,000 unit) capsule folic acid 400 mcg tablet 0.4 mg PO .DAILY AT NOON 02/16/20 03/30/24 omeprazole 20 mg capsule,delayed 20 mg PO DAILY@0630 02/16/20 03/30/24 release cyanocobalamin (vitamin B-12) 1,000 mcg sublingual Q OTHER DAY 11/03/20 03/30/24 1,000 mcg sublingual tablet cbd oil 02/16/21 03/30/24 nystatin 100,000 unit/gram topical 1 appl topical BID-TID 04/27/21 03/30/24 powder amlodipine 2.5 mg tablet 2.5 mg PO DAILY 09/18/21 03/30/24 evolocumab 140 mg/mL subcutaneous 140 mg subcut Q2W 09/25/23 03/30/24 pen injector (Darren Thompson) CBD oil PO 03/30/24 03/30/24 EMU oil topical 03/30/24 03/30/24 Previous Rx's ?Medication ?Instructions ?Recorded hydrocortisone 2.5 % topical cream 1 appl TX BID-QID PRN hemorrhoids 03/27/21 with perineal applicator #30 grams (Proctosol HC) atenolol 50 mg tablet 50 mg PO DAILY #90 tabs 03/03/24 olmesartan 20 mg tablet 20 mg PO DAILY #90 tabs 03/18/24 atorvastatin 80 mg tablet 80 mg PO BEDTIME 90 days #90 tabs 06/11/24 Allergies Allergy/AdvReac Type Severity Reaction Status Date / Time simvastatin Allergy Unknown Unknown Verified 08/31/24 12:42 Review of Systems 2 Constitutional: Constitutional: Reports as per HPI [facility] Past Medical History Medical History (Updated 08/31/24 @ 15:21 by Earl Verma DO) COVID-19 virus infection Sebaceous cyst Medicare annual wellness visit, initial PFO (patent foramen ovale) Insomnia Scoliosis Arthritis Cancer, skin, squamous cell BPH (benign prostatic hyperplasia) 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 History of herpes genitalis Impaired glucose tolerance Hypercholesterolemia Ascending aorta dilatation Moderate aortic stenosis Barretts esophagus CAD (coronary artery disease) Overweight (BMI 25.0-29.9) History of asbestos exposure GERD (gastroesophageal reflux disease) Hypertension Surgical History Hx of squamous cell carcinoma excision Hx of colonoscopy History of esophagogastroduodenoscopy (EGD) History of prostate surgery History of vasectomy History of appendectomy Family History Family History Father Hypertension CVD (cardiovascular disease) Mother Diabetes Past heart attack Social History Social History (Updated 03/30/24 @ 10:47 by Linda Medina MD) Housing: House Alcohol intake: current Alcohol intake frequency: 3 or more drinks per day Alcohol type: beer Comment: 2 beers Qd Patient Tobacco Use Status: Former Tobacco user Tobacco use type: Cigarette Years Smoked: 25 years ago Smoked in Last 30 Days: No e-Cigarette/Vaping Use: Never Used Second Hand Smoke Exposure: No Advance Directives: No Advance Directives Information Provided: Yes Current occupational status: retired Cognitive needs: No Hearing needs: No Vision needs: Yes Physical Exam 2 Vital Signs: Vital Signs: Last Vital Signs Temp 97.9 F 08/31/24 12:43 Pulse 83 08/31/24 13:56 Resp 19 08/31/24 13:56 BP 126/81 08/31/24 15:07 Pulse Ox 98 08/31/24 13:56 O2 Del Method Room Air 08/31/24 13:56 BMI result Body Mass Index 26.6 Const: Other: * Gen: ?Overall well-appearing patient * HEENT: PERRLA, EOMI, MMM, * Neck: Supple, no LAD * CV: Irregularly irregular, systolic ejection murmur 2/6 at the aortic area * Resp: ?No wheezing rales rhonchi no stridor moving air well * Abd: ?Bowel sounds are present, no tenderness no rebound no rigidity * MSK: FROM, strength 5/5 all extremities * Skin: Warm, dry, intact, * Neuro: ?Alert and oriented x3, moving upper and lower extremities symmetrically, no obvious facial asymmetry noted Medications Administered Generic Name Dose Route Start Last Admin Trade Name Freq PRN Reason Stop Dose Admin Sodium Chloride 500 mls @ 500 mls/hr 08/31/24 14:45 08/31/24 15:07 Ns IV 08/31/24 15:44 500 mls/hr .Q1H MARYANNE Administration Discontinued Medications Generic Name Dose Route Start Last Admin Trade Name Freq PRN Reason Stop Dose Admin Furosemide 20 mg 08/31/24 14:45 08/31/24 15:07 Furosemide 20 Mg/2 Ml Vial IVPUSH 08/31/24 14:46 20 mg ONCE ONE Administration Protocol Sodium Zirconium Cyclosilicate 10 gm 08/31/24 14:45 08/31/24 15:07 Sodium Zirconium Cyclosilicate 10 Gm Powd.Pack PO 08/31/24 14:46 10 gm ONCE ONE Administration Medical Decision Making Medical Decision Making [facility] Narrative: Presenting with palpitations or chest pain, ECG reveals new onset of AFib, he is also hypokalemic and he is on a are B's, I will repeat his potassium although the septum was not hemolyzed just to make sure before I fully treat him, other considerations include ACS, PE, thyroid issues, I also spoke with Dr. Hodgson allergy regarding his AFib, patient may need to be admitted for new onset of AFib and hyperkalemia. 3pm, spoke with Dr. Hodgson from Cardiology, he is considering transferring the patient to [facility] for anginal symptoms, his 2nd troponin was unremarkable, potassium is 5.8 I will provide fluids, Lasix and Lokelma, no other interventions as no EKG changes, meat processing center manager states that if and for transfer is prolonged okay to admit at [facility] this patient is stable Lab Data MDM Lab Attestation statement: I reviewed the patient's lab results. 08/31/24 13:01 08/31/24 13:53 Labs: Lab Results 08/31/24 08/31/24 Range/Units 13:01 13:53 WBC 5.4 (4.8-10.8) X10*3/uL RBC 4.89 (4.60-5.80) X10*6/uL Hgb 15.0 (14.0-18.0) g/dl Hct 45.2 (42.0-52.0) % MCV 92.4 (80.0-98.0) fL MCH 30.7 (27.0-33.0) pg MCHC 33.2 (31.0-36.0) g/dl RDW 13.5 (11.0-16.0) % Plt Count 132 L (160-400) X10*3/uL MPV 10.1 (9.4-12.4) fL Immature Gran % (Auto) 0.4 (0.0-0.4) % Neut % (Auto) 74.1 H (45-73) % Lymph % (Auto) 14.9 L (20-40) % [place] % (Auto) 8.4 (2-11) % Eos % (Auto) 1.5 (0-4) % Baso % (Auto) 0.7 (0-2) % Lymph # (Auto) 0.8 L (1.2-4.9) X10*3/uL [place] # (Auto) 0.5 (0.1-1.2) X10*3/uL Eos # (Auto) 0.1 (0.0-0.4) X10*3/uL Baso # (Auto) 0.0 (0.0-0.2) X10*3/uL Abs Immat Gran (auto) 0.02 (0.00-0.03) X10*3/uL Absolute Neuts (auto) 4.0 (2.0-8.3) x10*3/uL Absolute Nucleated RBC 0.000 (0.0-0.012) X10*3/uL Nucleated RBC % (auto) 0.0 (0.0-0.2) /100WBC D-Dimer High Sensitivty 242 NG/ML Sodium 139 (135-145) mmol/L Potassium 6.4 H* D 5.8 H (3.3-5.1) mmol/L Chloride 107 (96-108) mmol/L Carbon Dioxide 26 (22-29) mmol/L Anion Gap 12 (12-20) BUN 15 (9-16) mg/dL Creatinine 0.96 (0.5-1.4) mg/dL Estim Creat Clear Calc 69.5 Estimated GFR > 60 Random Glucose 91 (60-115) mg/dL Calcium 9.4 (8.4-10.2) mg/dL Magnesium 1.8 (1.6-2.6) mg/dL Total Bilirubin 0.6 (0.0-1.0) mg/dL AST 22 (5-37) U/L ALT 16 (0-40) U/L Alkaline Phosphatase 63 (39-117) U/L Troponin I High Sens 7.0 6.5 (<3.5-35.0) ng/L B-Natriuretic Peptide 159 H (<100) pg/mL Total Protein 6.9 (6.5-8.0) g/dL Albumin 4.1 (3.5-5.0) g/dL Independent Interpretation I performed an independent interpretation of an: EKG (82 Beats per minute, atrial fibrillation, no QTC prolongation) Critical Care Time Critical Care Time Critical Care Time: Yes Total Critical Care Time: 60 Attestation: Time is exclusive of separately billable procedures. Time includes: direct patient care, patient reassessment, coordination of patient care, interpretation of data (laboratory data, pulse oximetry, arterial blood gases and chest xrays), review of patient's medical records, medical consultation and documentation of patient care. Procedures excluded from critical care time: central intravenous line placement and electrocardiography. Discharge Plan Discharge Prescriptions: No Action hydrocortisone [Proctosol HC] 2.5 % cream with perineal applicator 1 appl TX BID-QID PRN (Reason: hemorrhoids) Qty: 30 0RF atenolol 50 mg tablet 50 mg PO DAILY Qty: 90 2RF olmesartan 20 mg tablet 20 mg PO DAILY Qty: 90 3RF atorvastatin 80 mg tablet 80 mg PO BEDTIME 90 Days Qty: 90 2RF cyanocobalamin (vitamin B-12) [Vitamin B-12] 1,000 mcg Tablet, Sublingual 1,000 mcg SUBLINGUAL Q OTHER DAY aspirin [Adult Aspirin Regimen] 81 mg tablet,delayed release (DR/EC) 81 mg PO DAILY omeprazole 20 mg capsule,delayed release(DR/EC) 20 mg PO DAILY@0630 folic acid 400 mcg tablet 0.4 mg PO .DAILY AT NOON cholecalciferol (vitamin D3) 25 mcg (1,000 unit) capsule 25 mcg PO .DAILY AT NOON (DME) cbd oil 0 .Route .MEDSUPPLY amlodipine 2.5 mg tablet 2.5 mg PO DAILY Repatha SureClick 140 mg/mL pen injector 140 mg subcut Q2W nystatin 100,000 unit/gram powder 1 appl topical BID-TID CBD oil PO EMU oil topical Print Language: Bulgarian
[2024-08-31 13:26] LABS: Alanine Aminotransferase 16 U/L (0-40); Albumin Level 4.1 g/dL (3.5-5.0); Alkaline Phosphatase 63 U/L (39-117); Aspartate Amino Transferase 22 U/L (5-37); Bilirubin Total 0.6 mg/dL (0.0-1.0); Blood Urea Nitrogen 15 mg/dL (9-16); Calcium 9.4 mg/dL (8.4-10.2); Creatinine Clr Calc Pharmacy 69.5; Estimated Glomerular Filt Rate > 60; Glucose Random 91 mg/dL (60-115); Magnesium 1.8 mg/dL (1.6-2.6); Total Protein 6.9 g/dL (6.5-8.0)
[2024-08-31 13:28] LABS: B Type Natriuretic Peptide 159 pg/mL (<100)
[2024-08-31 13:40] LABS: Anion Gap 12 (12-20); Carbon Dioxide 26 mmol/L (22-29); Chloride 107 mmol/L (96-108); Potassium 6.4 mmol/L (3.3-5.1); Sodium 139 mmol/L (135-145)
[2024-08-31 14:13] LABS: D Dimer High Sensitivity 242 NG/ML
[2024-08-31 14:19] LABS: Potassium 5.8 mmol/L (3.3-5.1)
[2024-08-31 14:34] LABS: Troponin-I High Sensitivity 6.5 ng/L (<3.5-35.0)
--- NOTE | 2024-08-31 14:55 | P.CONCA_ITS ---
History of Present Illness History of Present Illness Date of Service: 08/31/24 Requesting physician: Earl Verma Chief complaint: Unstable angina Narrative: [age] year gentleman with moderate aortic valve stenosis, previous angioplasty and stable angina presenting with exertional chest discomfort which has progressed over the last week. He said he was given amlodipine for chest discomfort but while mowing his lawn today he had significant chest discomfort and shortness of breath. He has been getting same symptoms over the last few weeks 2. No syncope. He was significantly short of breath today. He has known history of angioplasty approximately 40 years ago. He is taking aspirin. He also has familiar hyperlipidemia and is currently on Evolocumab and atorvastatin. 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 History of herpes genitalis Impaired glucose tolerance Hypercholesterolemia Ascending aorta dilatation Moderate aortic stenosis Barretts esophagus CAD (coronary artery disease) Overweight (BMI 25.0-29.9) History of asbestos exposure GERD (gastroesophageal reflux disease) Hypertension Family History Family History Father Hypertension CVD (cardiovascular disease) Mother Diabetes Past heart attack Surgical History Surgical History Hx of squamous cell carcinoma excision Hx of colonoscopy History of esophagogastroduodenoscopy (EGD) History of prostate surgery History of vasectomy History of appendectomy Social History Social History (Updated 03/30/24 @ 10:47 by Linda Medina MD) Housing: House Alcohol intake: current Alcohol intake frequency: 3 or more drinks per day Alcohol type: beer Comment: 2 beers Qd Patient Tobacco Use Status: Former Tobacco user Tobacco use type: Cigarette Years Smoked: 25 years ago Smoked in Last 30 Days: No e-Cigarette/Vaping Use: Never Used Second Hand Smoke Exposure: No Advance Directives: No Advance Directives Information Provided: Yes Current occupational status: retired Cognitive needs: No Hearing needs: No Vision needs: Yes Meds Allergies Allergy/AdvReac Type Severity Reaction Status Date / Time simvastatin Allergy Unknown Unknown Verified 08/31/24 12:42 Active Medications: Current Medications Sodium Chloride (Ns) 500 mls @ 500 mls/hr IV .Q1H MARYANNE Stop: 08/31/24 15:44 Home Medications ?Medication ?Instructions ?Recorded ?Confirmed ?Last Taken ?Type aspirin 81 mg tablet,delayed 81 mg PO DAILY 02/16/20 03/30/24 11/08/20 History release (Adult Aspirin Regimen) cholecalciferol (vitamin D3) 25 25 mcg PO .DAILY AT NOON 02/16/20 03/30/24 Unknown History mcg (1,000 unit) capsule folic acid 400 mcg tablet 0.4 mg PO .DAILY AT NOON 02/16/20 03/30/24 11/02/20 History omeprazole 20 mg capsule,delayed 20 mg PO DAILY@0630 02/16/20 03/30/24 11/09/20 08:30 History release cyanocobalamin (vitamin B-12) 1,000 mcg sublingual Q OTHER DAY 11/03/20 03/30/24 Unknown History 1,000 mcg sublingual tablet cbd oil 02/16/21 03/30/24 Unknown History nystatin 100,000 unit/gram topical 1 appl topical BID-TID 04/27/21 03/30/24 Unknown History powder amlodipine 2.5 mg tablet 2.5 mg PO DAILY 09/18/21 03/30/24 Unknown History evolocumab 140 mg/mL subcutaneous 140 mg subcut Q2W 09/25/23 03/30/24 Unknown History pen injector (Darren Thompson) CBD oil PO 03/30/24 03/30/24 Unknown History EMU oil topical 03/30/24 03/30/24 Unknown History Physical Exam 2 Vital Signs: Vital Signs: Last Vital Signs Temp 97.9 F 08/31/24 12:43 Pulse 83 08/31/24 13:56 Resp 19 08/31/24 13:56 BP 131/74 08/31/24 13:56 Pulse Ox 98 08/31/24 13:56 O2 Del Method Room Air 08/31/24 13:56 BMI result Body Mass Index 26.6 GENERAL APPEARANCE: in no acute distress, pleasant. NECK: no carotid bruit, no jugular venous distention. Normal carotid upstrokes. SKIN: no suspicious lesions, warm and dry. HEART: Ejection systolic murmur with preserved 2nd heart sound, irregular rate and rhythm. LUNGS: clear to auscultation bilaterally. ABDOMEN: soft, nontender. EXTREMITIES: no edema. PERIPHERAL PULSES: equal. NEUROLOGIC: No gross deficits, AAO X 3 Objective Labs and Meds 08/31/24 13:01 08/31/24 13:53 Lab results: Laboratory Results - last 24 hr 08/31/24 08/31/24 13:01 13:53 WBC 5.4 RBC 4.89 Hgb 15.0 Hct 45.2 MCV 92.4 MCH 30.7 MCHC 33.2 RDW 13.5 Plt Count 132 L MPV 10.1 Immature Gran % (Auto) 0.4 Neut % (Auto) 74.1 H Lymph % (Auto) 14.9 L [place] % (Auto) 8.4 Eos % (Auto) 1.5 Baso % (Auto) 0.7 Lymph # (Auto) 0.8 L [place] # (Auto) 0.5 Eos # (Auto) 0.1 Baso # (Auto) 0.0 Abs Immat Gran (auto) 0.02 Absolute Neuts (auto) 4.0 Absolute Nucleated RBC 0.000 Nucleated RBC % (auto) 0.0 D-Dimer High Sensitivty 242 Sodium 139 Potassium 6.4 H* D 5.8 H Chloride 107 Carbon Dioxide 26 Anion Gap 12 BUN 15 Creatinine 0.96 Estim Creat Clear Calc 69.5 Estimated GFR > 60 Random Glucose 91 Calcium 9.4 Magnesium 1.8 Total Bilirubin 0.6 AST 22 ALT 16 Alkaline Phosphatase 63 Troponin I High Sens 7.0 6.5 B-Natriuretic Peptide 159 H Total Protein 6.9 Albumin 4.1 Imaging Radiologist's impression: Impressions Chest X-Ray 08/31/24 12:47 IMPRESSION: 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 No acute cardiopulmonary abnormality. Electronically signed by: Kiel Wiseman MD 08/31/2024 02:10 PM EDT Assessment and Plan (1) New onset a-fib: Status: Acute (2) Acute hyperkalemia: Status: Acute (3) Moderate aortic stenosis: Status: Acute (4) Unstable angina: Status: Acute Plan Pleasant 74 year gentleman who is here for exertional chest discomfort which has progressed over the last few weeks with significant discomfort and shortness of breath going uphill today. He has known history of coronary disease with previous angioplasty few decades back. He has moderate aortic valve stenosis by echocardiography on exam. He also has new onset atrial fibrillation which is rate controlled. Clinical story more concerning for unstable angina. We will start him on heparin drip. Continue home medications as before. I have discussed the case with Dr. Trimble at [facility] and we will transfer him to [facility] for diagnostic cardiac catheterization. Once he has undergone cardiac catheterization then ALYSHA cardioversion can be done or he can be rate controlled and can have cardioversion in 4 weeks after staying on anticoagulation. Moderate aortic valve stenosis. Continue surveillance. During catheterization gradients can be assessed but overall appears to be moderate. Thank you for allowing me to participate in the care of your patient. Please feel free to contact me if you have any questions. Procedures Date of Service Date of Service: 08/31/24
[2024-08-31] MEDS: Sodium Zirconium Cyclosilicate 10 GM POWD.PACK PO ×2 (15:07→16:44)
[2024-08-31] MEDS: 0.9 % Sodium Chloride 500 ML IV (15:07)
[2024-08-31] MEDS: Furosemide 20 MG/2 ML VIAL IVPUSH (15:07)
[2024-08-31 16:02] LABS: Prothrombin Time 11.3 SEC (10.9-12.4)
--- NOTE | 2024-08-31 16:20 | PM.IMHP ---
History of Present Illness Date of Service: 08/31/24 Attending physician on admission: Vidya Bernal Chief Complaint: chest pain 74-year-old male with history of CAD(history of angioplasty 40 year ago), moderate aortic stenosis, hyperlipidemia, hypertension, presenting with palpitations and exertional chest pain he has had amputations past few days and today midsternal chest pain when he was mowing the lawn he stopped moving he had went away, he is chest pain-free at this time. He has had palpitations in the past. He said that he had similar episode briefly last year and few months ago also. This time he was more symptomatic . Currently chest pain-free. As per the ED physician he went to his primary photo lab specialist Dr. amaya , echo was done that time. Denies any new shortness of breath or abdominal pain or fever or chills or nausea or vomiting Denies any cough Denies any weakness or numbness. labs imaging ekg:trop 7 -6.5, afib in 82 vent .rate For hyperkalemia: Received Lasix and Lokelma in the ED potassium slowly trending down Review of Systems Review of Systems: As above. 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 Surgical History Hx of squamous cell carcinoma excision Hx of colonoscopy History of esophagogastroduodenoscopy (EGD) History of prostate surgery History of vasectomy History of appendectomy Social History Housing: House Alcohol intake: current Alcohol intake frequency: 3 or more drinks per day Alcohol type: beer Comment: 2 beers Qd Patient Tobacco Use Status: Former Tobacco user Tobacco use type: Cigarette Years Smoked: 25 years ago Smoked in Last 30 Days: No e-Cigarette/Vaping Use: Never Used Second Hand Smoke Exposure: No Advance Directives: No Advance Directives Information Provided: Yes Current occupational status: retired Cognitive needs: No Hearing needs: No Vision needs: Yes Meds Allergies Allergy/AdvReac Type Severity Reaction Status Date / Time simvastatin Allergy Unknown Unknown Verified 08/31/24 12:42 Active Medications: Current Medications Acetaminophen (Acetaminophen 325 Mg Tablet) 650 mg PO Q6H PRN PRN Reason: Pain, Mild 1-3,fever,headache Calcium Carbonate (Calcium Carbonate 750 Mg Tab.Chew) 750 mg PO Q4H PRN PRN Reason: Heartburn Heparin Sodium (Porcine) (Heparin Sodium,Porcine 5,000 Unit/Ml Vial) 3,400 unit 40 unit/kg (3400 unit) IVPUSH PROTOCOL BOLUS PRN; Protocol PRN Reason: 40 unit/kg - Heparin Protocol Heparin Sodium (Porcine) (Heparin Sodium,Porcine 5,000 Unit/Ml Vial) 6,900 unit 80 unit/kg (6900 unit) IVPUSH PROTOCOL BOLUS PRN; Protocol PRN Reason: 80 unit/kg - Heparin Protocol Heparin Sodium/Sodium Chloride (Heparin Sodium,Porcine/1/2ns) 25,000 unit in 250 mls @ 0 mls/hr IVCONT .Q0M [facility]; Protocol Magnesium Hydroxide (Milk Of Magnesia 30 Ml Oral.Susp) 30 ml PO DAILY PRN PRN Reason: Constipation Melatonin (Melatonin 3 Mg Tablet) 6 mg PO BEDTIME PRN PRN Reason: Insomnia Ondansetron HCl (Ondansetron Hcl 4 Mg/2 Ml Vial) 4 mg IVPUSH Q8H PRN PRN Reason: Nausea and Vomiting Sodium Chloride (0.9 % Sodium Chloride Flush 3 Ml Syringe) 3 ml IVFLUSH [facility] Home Medications ?Medication ?Instructions ?Recorded ?Confirmed ?Last Taken ?Type aspirin 81 mg tablet,delayed 81 mg PO DAILY 02/16/20 03/30/24 11/08/20 History release (Adult Aspirin Regimen) cholecalciferol (vitamin D3) 25 25 mcg PO .DAILY AT NOON 02/16/20 03/30/24 Unknown History mcg (1,000 unit) capsule folic acid 400 mcg tablet 0.4 mg PO .DAILY AT NOON 02/16/20 03/30/24 11/02/20 History cyanocobalamin (vitamin B-12) 1,000 mcg sublingual Q OTHER DAY 11/03/20 03/30/24 Unknown History 1,000 mcg sublingual tablet cbd oil 02/16/21 03/30/24 Unknown History EMU oil topical 03/30/24 03/30/24 Unknown History Cbd Oil 50 mg PO DAILY 08/31/24 08/30/24 History amlodipine 5 mg tablet 5 mg PO DAILY 08/31/24 08/31/24 Unknown History atenolol 50 mg tablet 50 mg PO DAILY@1200 08/31/24 08/31/24 08/30/24 History cetirizine 10 mg tablet (Zyrtec) 10 mg PO Q48H 08/31/24 08/31/24 08/31/24 History coenzyme Q10 100 mg capsule 100 mg PO DAILY 08/31/24 08/31/24 08/30/24 History (CoQ-10) evolocumab 140 mg/mL subcutaneous 140 mg subcut Q2W 08/31/24 Unknown History pen injector (Darren Thompson) olmesartan 20 mg tablet 20 mg PO DAILY@1700 08/31/24 08/31/24 08/31/24 History omeprazole 20 mg tablet,delayed 20 mg PO DAILY 08/31/24 08/31/24 08/30/24 History release Physical Exam Vital Signs and Narrative: Vital Signs: Last Vital Signs Temp 97.9 F 08/31/24 12:43 Pulse 83 08/31/24 13:56 Resp 19 08/31/24 13:56 BP 126/81 08/31/24 15:07 Pulse Ox 98 08/31/24 13:56 O2 Del Method Room Air 08/31/24 13:56 BMI result Body Mass Index 28.0 Appearance: Alert.? Oriented X3 cvs: rrr, [id number]. res: clear to auscultation ,no rhonchii or wheezing abd: no rebound or guarding ,nt, bs present. ext pulses present , no cyanosis . neuro: axo3 , nonfocal. Results Labs 08/31/24 13:01 08/31/24 13:53 Labs: Laboratory Results - last 24 hr 08/31/24 08/31/24 08/31/24 13:01 13:53 15:48 MCV 92.4 MCH 30.7 MCHC 33.2 RDW 13.5 Plt Count 132 L MPV 10.1 Immature Gran % (Auto) 0.4 Neut % (Auto) 74.1 H Lymph % (Auto) 14.9 L [place] % (Auto) 8.4 Eos % (Auto) 1.5 Baso % (Auto) 0.7 Lymph # (Auto) 0.8 L [place] # (Auto) 0.5 Eos # (Auto) 0.1 Baso # (Auto) 0.0 Abs Immat Gran (auto) 0.02 Absolute Neuts (auto) 4.0 Absolute Nucleated RBC 0.000 Nucleated RBC % (auto) 0.0 PT 11.3 INR 1.0 aPTT Heparin Protocol 31.0 L D-Dimer High Sensitivty 242 Anion Gap 12 Estim Creat Clear Calc 69.5 Estimated GFR > 60 Random Glucose 91 Calcium 9.4 Magnesium 1.8 Total Bilirubin 0.6 AST 22 ALT 16 Alkaline Phosphatase 63 B-Natriuretic Peptide 159 H Total Protein 6.9 Albumin 4.1 Imaging Radiologist's Impressions: Impressions Chest X-Ray 08/31/24 12:47 IMPRESSION: 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 No acute cardiopulmonary abnormality. Electronically signed by: Kiel Wiseman MD 08/31/2024 02:10 PM EDT RP Assessment and Plan (1) Unstable angina: Status: Acute (2) Acute hyperkalemia: Status: Acute Plan 74-year-old male with history of CAD(history of angioplasty 40 year ago), moderate aortic stenosis, hyperlipidemia, hypertension, presenting with palpitations and exertional chest pain: unstable angina: History of moderate aortic stenosis, history of angioplasty. EKG shows new AFib, troponin negative Continue heparin with PT PTT protocol, continue home aspirin, statin. May need [facility] transfer -currently bed is not available. new afib: moniter tele check tsh he says hr stays mostly in high 40-50's we continue low dose bb (med reconcillation pending) Acute hyperkalemia: Received Lokelma and Lasix, hyperkalemia improving, we given another dose of Lokelma, monitor BMP in the evening. Avoid medications that can cause hyperkalemia, hold ARB. HLP: Med reconciliation pending htn: blood pressure acceptable med reconcillation pending ETOH use: CIWA scale, thiamine folic acid DVT prophylaxis: Patient is on heparin Patient will benefit from at least 2 midnight stay for possible unstable angina treatment, new onset AFib: Need IV heparin, PT PTT monitoring, hyperkalemia was need renal function electrolyte monitoring. Plan transfer to [facility]-as per the ED no bed available currently. Above management discussed with the patient in detail length he understand and in agreement with the above plan, time spent 70 minute, patient is full code. All question answered. Quality Stroke Does the patient have a stroke diagnosis?: No VTE Prior VTE?: No VTE Risk Level:: Medical - moderate - high VTE Device Contraindication: Treatment Not Indicated VTE Drug Contraindication: N/A - Med Ordered
--- NOTE | 2024-08-31 16:32 | PHA.MEDREC ---
Addendum entered by Jorge Luis Stack [facility] 08/31/24 17:07: MED REC CHECKED BY [facility] Original Note: Pharmacy Consult ? Medication Reconciliation Pharmacy has completed the medication reconciliation. Spoke to patient to confirm med list. patient had a list of his medications with him. Patient states he is no longer using Hydrocortisone 2.5% rectal crean, and Nystatin 1000,000 unit/gram powder. Patient confirmed Repatha SureClick 140 mg , patient next dose is 09/07/24. Patient is now on Amlodipine 5 mg daily.
[2024-08-31] MEDS: Heparin Sodium,Porcine 5,000 UNIT/ML VIAL 4000 UNIT IVPUSH (16:44)
[2024-08-31 16:45] LABS: Prothrombin Time 11.3 SEC (10.9-12.4)
[2024-08-31] MEDS: Heparin Sodium,Porcine/1/2NS 25,000 UNIT/250 ML IV.SOLN 10 UNIT IVCONT (16:46)
[2024-08-31 19:09] LABS: Anion Gap 13 (12-20); Blood Urea Nitrogen 14 mg/dL (9-16); Calcium 9.3 mg/dL (8.4-10.2); Carbon Dioxide 24 mmol/L (22-29); Chloride 108 mmol/L (96-108); Creatinine Clr Calc Pharmacy 87.4; Estimated Glomerular Filt Rate > 60; Glucose Random 100 mg/dL (60-115); Potassium 4.1 mmol/L (3.3-5.1); Sodium 141 mmol/L (135-145)
[2024-08-31] MEDS: Atorvastatin Calcium 80 MG TABLET PO (20:02)
[2024-08-31] MEDS: amLODIPine Besylate 5 MG TABLET PO (20:02)
[2024-08-31 22:43] LABS: PTT Heparin Drip 78.4 SEC (53-77.9)
--- NOTE | 2024-08-31 23:10 | PM.DS ---
DS: Providers Provider Date of Service: 08/31/24 Date of admission: 08/31/24 15:26 Date of discharge: 08/31/24 Primary care physician: Linda Medina MD Consults: 08/31/24 15:26 Consult to Cardiology Routine Consulting Provider: [facility] Reason for consultation: Unstable angina DS: Transfer Hospital Acceptance Reason for Transfer: Diagnostic cardiac catheterization Name of Facility: [facility] DS: Diagnosis Discharge Diagnosis (1) Unstable angina: Status: Acute (2) Acute hyperkalemia: Status: Acute DS: Summary Hospital Course Hospital Course: HPI: 74-year-old male with history of CAD(history of angioplasty 40 year ago), moderate aortic stenosis, hyperlipidemia, hypertension, presenting with palpitations and exertional chest pain he has had amputations past few days and today midsternal chest pain when he was mowing the lawn he stopped moving he had went away, he is chest pain-free at this time. He has had palpitations in the past. He said that he had similar episode briefly last year and few months ago also. This time he was more symptomatic . Currently chest pain-free. As per the ED physician he went to his primary wireless watcher Dr. amaya , echo was done that time.Denies any new shortness of breath or abdominal pain or fever or chills or nausea or vomiting Denies any cough Denies any weakness or numbness. labs imaging ekg:trop 7 -6.5, afib in 82 vent .rate For hyperkalemia: Received Lasix and Lokelma in the ED potassium slowly trending down Hospital course: Patient was admitted with IV heparin for unstable angina and monitored on tele for new onset AFib with RVR. Received Lokelma and Lasix with resolution of hyperkalemia. Cardiology was consulted who discussed with Dr. Moctezuma at [facility] and patient to be transferred to [facility] for diagnostic cardiac catheterization. Also possibility ALYSHA conversion. Status at Discharge Overall status at discharge: patient is not back to baseline Time Attestation Total time managing care of this patient today: 40 mintues. Discharge Coordination Time (in mins): Forty minutes Quality: Safe Use of Opioids Does Pt have an Active Cancer Diagnosis on the Problem List?: No Quality: Stroke Does the patient have a stroke diagnosis?: No Physical Exam Vital Signs: Vital Signs: Last Vital Signs Temp 97.4 F 08/31/24 23:01 Pulse 82 08/31/24 23:01 Resp 18 08/31/24 23:01 BP 125/76 08/31/24 23:01 Pulse Ox 97 08/31/24 23:01 O2 Del Method Room Air 08/31/24 23:01 BMI result Body Mass Index 28.0 Middle-aged male lying in bed in no distress Neck supple Irregularly irregular, S1-S2 heard Regular breath sounds bilaterally, no wheezing or crackles appreciated Abdomen soft nontender, no guarding, no rigidity Patient is awake, alert and oriented to self, place, time and person ; no focal motor deficit Psych: Normal mood DS: Data Data Completed and Pending Labs on day of discharge: Laboratory Results - last 24 hr 08/31/24 08/31/24 08/31/24 13:01 13:53 15:48 WBC 5.4 RBC 4.89 Hgb 15.0 Hct 45.2 MCV 92.4 MCH 30.7 MCHC 33.2 RDW 13.5 Plt Count 132 L MPV 10.1 Immature Gran % (Auto) 0.4 Neut % (Auto) 74.1 H Lymph % (Auto) 14.9 L [place] % (Auto) 8.4 Eos % (Auto) 1.5 Baso % (Auto) 0.7 Lymph # (Auto) 0.8 L [place] # (Auto) 0.5 Eos # (Auto) 0.1 Baso # (Auto) 0.0 Abs Immat Gran (auto) 0.02 Absolute Neuts (auto) 4.0 Absolute Nucleated RBC 0.000 Nucleated RBC % (auto) 0.0 PT 11.3 INR 1.0 aPTT Heparin Protocol 31.0 L D-Dimer High Sensitivty 242 Sodium 139 Potassium 6.4 H* D 5.8 H Chloride 107 Carbon Dioxide 26 Anion Gap 12 BUN 15 Creatinine 0.96 Estim Creat Clear Calc 69.5 Estimated GFR > 60 Random Glucose 91 Calcium 9.4 Magnesium 1.8 Total Bilirubin 0.6 AST 22 ALT 16 Alkaline Phosphatase 63 Troponin I High Sens 7.0 6.5 B-Natriuretic Peptide 159 H Total Protein 6.9 Albumin 4.1 TSH 2.60 08/31/24 08/31/24 08/31/24 16:30 18:44 22:25 WBC RBC Hgb Hct MCV MCH MCHC RDW Plt Count MPV Immature Gran % (Auto) Neut % (Auto) Lymph % (Auto) [place] % (Auto) Eos % (Auto) Baso % (Auto) Lymph # (Auto) [place] # (Auto) Eos # (Auto) Baso # (Auto) Abs Immat Gran (auto) Absolute Neuts (auto) Absolute Nucleated RBC Nucleated RBC % (auto) PT 11.3 INR 1.0 aPTT Heparin Protocol 78.4 H D D-Dimer High Sensitivty Sodium 141 Potassium 4.1 D Chloride 108 Carbon Dioxide 24 Anion Gap 13 BUN 14 Creatinine 0.83 Estim Creat Clear Calc 87.4 Estimated GFR > 60 Random Glucose 100 Calcium 9.3 Magnesium Total Bilirubin AST ALT Alkaline Phosphatase Troponin I High Sens B-Natriuretic Peptide Total Protein Albumin TSH Imaging Chest x-ray: Radiologist's impression: ITS Impressions Chest X-Ray 08/31/24 12:47 IMPRESSION: 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 No acute cardiopulmonary abnormality. Electronically signed by: Kiel Wiseman MD 08/31/2024 02:10 PM EDT Discharge Plan Discharge Anticipated Discharge Date/Time: 08/31/24 23:04 Patient Disposition: Xfer Acute Care Hospital Discharge Diagnosis: Unstable angina Referrals: Po,Linda Rand MD [Primary Care Provider] - 1 Week Discharge Medications: New heparin (porcine) 5,000 unit/mL Solution 3,400 unit IVPUSH PROTOCOL BOLUS PRN (Reason: 40 Unit/Kg - Heparin Protocol) Qty: 250 0RF heparin(porcine) in 0.45% NaCl 25,000 unit/250 mL Parenteral Solution 25,000 unit continuous IV infusion .Q0M Qty: 6000 0RF heparin (porcine) 5,000 unit/mL Solution 6,900 unit IVPUSH PROTOCOL BOLUS PRN (Reason: 80 Unit/Kg - Heparin Protocol) Qty: 250 0RF Continued atorvastatin 80 mg tablet 80 mg PO BEDTIME 90 Days Qty: 90 2RF cyanocobalamin (vitamin B-12) 1,000 mcg Tablet, Sublingual 1,000 mcg SUBLINGUAL Q48H amlodipine 5 mg tablet 5 mg PO BEDTIME Repatha SureClick 140 mg/mL pen injector 140 mg subcut Q2W Rx Instructions: Next dose due 09/07/24 Cbd Oil 50 mg PO DAILY atenolol 50 mg tablet 50 mg PO DAILY@1200 olmesartan 20 mg tablet 20 mg PO DAILY@1700 cetirizine [Zyrtec] 10 mg Tablet 10 mg PO Q48H coenzyme Q10 [CoQ-10] 100 mg Capsule 100 mg PO DAILY omeprazole 20 mg Tablet,Delayed Release (Dr/Ec) 20 mg PO DAILY aspirin [Adult Aspirin Regimen] 81 mg tablet,delayed release (DR/EC) 81 mg PO DAILY@1700 folic acid 400 mcg tablet 0.4 mg PO DAILY@1200 cholecalciferol (vitamin D3) 25 mcg (1,000 unit) capsule 25 mcg PO DAILY@1200 (DME) cbd oil 0 .Route .MEDSUPPLY EMU oil 1 appl topical DAILY Rx Instructions: Apply to shoulders and hips Discharge Orders: Discharge Order (Routine); Ordered 08/31/24 Ordered By: Denise Muniz Activity on Discharge: Rest with bed elevated Stand Alone Forms: Patient Portal Discharge page Print Language: Tristanian Care Plan Goals: Transfer to [facility] for diagnostic cardiac catheterization Possible ALYSHA cardioversion Health Concerns: Unstable angina New onset AFib Plan of Treatment: Continue IV heparin, aspirin and statin Assessment: As above
[2024-09-04 00:54] LABS: Heparin Anti-Xa 0.37 IU/mL
== END 2024-09-01 01:19 | disposition short-term general hospital (02) | DRG 309 ==
LOC: HO.ED 15:24 → HO.EDOVER 15:36 → HO.IMC 16:57
PROVIDERS: Physician Assistant Medical; Admitting Provider Student in an Organized Health Care Education/Training Program; Emergency Provider Emergency Medicine; PCP Internal Medicine; Visit Provider Internal Medicine
DX: I48.91 Unspecified atrial fibrillation (principal); I25.110 Atherosclerotic heart disease of native coronary artery with unstable angina pectoris; E78.5 Hyperlipidemia, unspecified; I35.0 Nonrheumatic aortic (valve) stenosis; E87.5 Hyperkalemia; Z95.1 Presence of aortocoronary bypass graft; Z87.891 Personal history of nicotine dependence; Z79.82 Long term (current) use of aspirin; Z79.899 Other long term (current) drug therapy
CPT/HCPCS: 36415; 71046; 80048; 80053; 83735; 83880; 84132; 84443; 84484; 85025; 85379; 85520; 85610; 85730; 93005; 99285; J1644; J1938

== ENCOUNTER → 2024-08-31 12:47 | Outpatient (BNV) | payer MEDICARE, SELFPAY | PROVIDERS: Emergency Provider Emergency Medicine; PCP Internal Medicine; Visit Provider Radiology Diagnostic Radiology | DX: J92.0 Pleural plaque with presence of asbestos (principal) | CPT/HCPCS: 71046 ==

== ENCOUNTER → 2024-08-31 13:06 | Outpatient (BNV) | payer MEDICARE, SELFPAY | PROVIDERS: Emergency Provider Emergency Medicine; PCP Internal Medicine; Visit Provider Internal Medicine Cardiovascular Disease | DX: I48.91 Unspecified atrial fibrillation (principal) | CPT/HCPCS: 93010; 99223 ==

== ENCOUNTER → 2024-08-31 15:26 | Outpatient (BNV) | payer MEDICARE, SELFPAY | PROVIDERS: Admitting Provider Student in an Organized Health Care Education/Training Program; Emergency Provider Emergency Medicine; PCP Internal Medicine; Visit Provider Internal Medicine | DX: I20.0 Unstable angina (principal); E87.5 Hyperkalemia | CPT/HCPCS: 99499 ==

== ENCOUNTER 2024-09-28 10:37 | Outpatient (AMB) | payer MEDICARE, SELFPAY ==
[2024-09-28 10:40] VITALS: BP 104/62; BMI 26.8
--- NOTE | 2024-09-28 10:40 | A.OFFPC_ITS ---
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 Accompanied by: Self / Same As Patient Allergies simvastatin Allergy (Unknown, Verified 09/28/24 10:40) Unknown Medication List - Last Reconciled 09/28/24 by Linda Medina MD acetaminophen 1,000 mg PO Q6H PRN amiodarone 200 mg PO BID apixaban (Eliquis) 5 mg PO BID aspirin (Adult Aspirin Regimen) 81 mg PO DAILY@1700 atorvastatin 80 mg PO BEDTIME 90 days [Cbd Oil 50 mg PO DAILY] [cbd oil ] cetirizine (Zyrtec) 10 mg PO Q48H cholecalciferol (vitamin D3) 25 mcg PO DAILY@1200 coenzyme Q10 (CoQ-10) 100 mg PO DAILY cyanocobalamin (vitamin B-12) 1,000 mcg sublingual Q48H [EMU oil 1 appl topical DAILY] evolocumab (Repatha SureClick) 140 mg subcut Q2W folic acid 0.4 mg PO DAILY@1200 furosemide 20 mg PO BID metoprolol succinate ER 50 mg PO DAILY omeprazole 20 mg PO DAILY Tobacco use date assessed: 09/28/24 Fall risk assessment: No Falls in past year Last assessed Fall Risk: 09/28/24 Dental Screening Dental Screen Date: 09/28/24 Did you have a dental visit in the last 12 months?: Yes Did you have a dental problem in the last 6 months where you did not have access to dental care?: No Was dental information given to patient?: Patient has dentist HPI 6 month f/u HPI Details September 16 CABG 3 vessel and MAZE procedure PFSH Medical History COVID-19 virus infection Sebaceous cyst Medicare annual wellness visit, initial PFO (patent foramen ovale) Insomnia Scoliosis Arthritis Cancer, skin, squamous cell BPH (benign prostatic hyperplasia) 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 History of herpes genitalis Impaired glucose tolerance Hypercholesterolemia Ascending aorta dilatation Moderate aortic stenosis Barretts esophagus CAD (coronary artery disease) Overweight (BMI 25.0-29.9) History of asbestos exposure GERD (gastroesophageal reflux disease) Hypertension Surgical History Hx of squamous cell carcinoma excision Hx of colonoscopy History of esophagogastroduodenoscopy (EGD) History of prostate surgery History of vasectomy History of appendectomy Family History Father Hypertension CVD (cardiovascular disease) Mother Diabetes Past heart attack Social History Household Members: Spouse Housing: House Do you presently have visiting nurse or other home services: No Alcohol intake: current Alcohol intake frequency: 3 or more drinks per day Alcohol type: beer Comment: 2 beers Qd Patient Tobacco Use Status: Former Tobacco user Tobacco use type: Cigarette Years Smoked: 25 years ago e-Cigarette/Vaping Use: Never Used Second Hand Smoke Exposure: No Current occupational status: retired Cognitive needs: No Hearing needs: No Vision needs: Yes Questionnaire PHQ-9 Over the last 2 weeks, how often have you been bothered by any of the following problems? 1. Little interest or pleasure in doing things: several days 2. Feeling down, depressed, or hopeless: not at all 3. Trouble falling or staying asleep, or sleeping too much: more than half the days 4. Feeling tired or having little energy: more than half the days 5. Poor appetite or overeating: more than half the days 6. Feeling bad about yourself - or that you are a failure or have let yourself or your family down: not at all 7. Trouble concentrating on things, such as reading the newspaper or watching television: not at all 8. Moving or speaking so slowly that other people could have noticed. Or the o pposite - being so fidgety or restless that you have been moving around a lot more than usual: not at all 9. Thoughts that you would be better off or of hurting yourself in some way: not at all Total score: 7 Source: Developed by Drs. Kiel Webb, Rohini Yu, Wily Rudolph and colleagues, with an educational mike from [email or web address]. Thrive Questionnaire Date Thrive assessed: 09/28/24 I am a: Patient What is your living situation today?: I have a steady place to live Within the past 12 months, did the food you bought not last and you didn't have the money to get more?: Never true Within the past 12 months, did you worry whether your food would run out before you got money to buy more?: Never true Do you have trouble paying for medicines?: No Do you have trouble getting transportation to medical appointments?: No Do you have trouble paying your heating and electricity bill?: No Do you have trouble taking care of your child, family member or friend?: No Do you have trouble with day-to-day activities such as bathing, preparing meals, shopping, managing finances, etc.?: No Are you currently unemployed and looking for a job?: No Are you interested in more education?: No Please select the resources that you would like help with: None Currently or been in a relationship where the following occur: No concerns reported THRIVE Score: 0 AUDIT C Alcohol Use Questionnaire (AUDIT-C) 1. How often do you have a drink containing alcohol?: 4 or more times a week 2. How many drinks containing alcohol do you have on a typical day when you are drinking?: 1 or 2 3. How often do you have six or more drinks on one occasion?: Never Total Score: 4 FAIZA-7 AMB Questionnaire FAIZA-7 Date FAIZA - 7 assessed: 09/28/24 Feeling nervous, anxious, or on edge: 0 = Not at all Not being able to stop or control worryin = Not at all Worrying too much about different things: 0 = Not at all Trouble relaxin = Not at all Being so restless that it is hard to sit still: 0 = Not at all Becoming easily annoyed or irritable: 0 = Not at all Feeling afraid as if something awful might happen: 0 = Not at all Total FAIZA-7 score (0-4 normal; 5-9 mild; 10-14 moderate; 15-21 severe): 0 Source: Developed by Drs. Kiel Webb, Rohini Yu, Wily Rudolph and colleagues, with an educational mike from [email or web address]. Physical exam (Primary Care) Vital Signs: Last Vital Signs BP 104/62 09/28/24 10:40 Oxygen Delivery Method Room Air 09/28/24 10:40 BMI result Body Mass Index 26.8 Tobacco/Smoking Status: Tobacco use Status Tobacco use date assessed 09/28/24 09/28/24 10:43 Patient Tobacco Use Status Former Tobacco user 09/28/24 10:43 Tobacco use type Cigarette 09/28/24 10:43 e-Cigarette/Vaping Use Never Used 09/28/24 10:43 PHQ-9: PHQ-9 Score PHQ-9: Total score 7 09/28/24 11:17 Thrive Assessment: Date of Thrive Assessment Date Thrive assessed 09/28/24 09/28/24 10:43 Currently or been in a relationship where the following occur: No concerns reported Const General: alert; No acute distress Eyes Conjunctivae: conjunctivae normal Resp Auscultation: clear to auscultation bilaterally Cardio Rate: regular rate Rhythm: regular rhythm GI Inspection: Yes normal to inspection Extrem General: Yes normal to inspection and No edema Coding Level of Care Code Est Pt Level 4 (04101) Complex EM visit Add On G2211 Diagnoses Coronary artery disease involving [place] coronary artery of [place] heart without angina pectoris I25.10 Associated angina: without angina Coronary Disease-Associated Artery/Lesion type: [place] artery [place] vs. transplanted heart: [place] heart Essential hypertension I10 Hypertension type: essential hypertension Kruse's esophagus without dysplasia K22.70 Kruse's esophagus type: without dysplasia Hypercholesterolemia E78.00 Benign prostatic hyperplasia, unspecified whether lower urinary tract symptoms present N40.0 Lower urinary tract symptom presence: unspecified whether lower urinary tract symptoms present [place] cell skin cancer of left thigh C4A.72 Moderate aortic stenosis I35.0 New onset a-fib I48.91 Assessment & Plan Assessment & Plan (1) CAD (coronary artery disease): Comment: Angioplasty 1993 Dr. Trimble echo October 2016 aortic dilatation 3.7 moderate , EF 55-60% echo October 2017 EF 60% moderate aorta 3.8 it February 2020 normal LV function 60-65% abnormal left ventricle diastolic function, mildly dilated atrium left, moderate aortic stenosis, I aorta 3.4 cm June 2021 ejection fraction 55-60% dilated left atrium PFO moderate Code(s): I25.10 - Atherosclerotic heart disease of [place] coronary artery without angina pectoris Category: Medical Qualifiers: Associated angina: without angina Coronary Disease-Associated Artery/Lesion type: [place] artery [place] vs. transplanted heart: [place] heart Qualified Code(s): I25.10 - Atherosclerotic heart disease of [place] coronary artery without angina pectoris Plan: Control the cholesterol, weight, blood pressure, on aspirin 81 mg once a day and now on Eliquis 5 mg twice a day (2) Hypertension: Code(s): I10 - Essential (primary) hypertension Category: Medical Qualifiers: Hypertension type: essential hypertension Qualified Code(s): I10 - Essential (primary) hypertension Plan: Continue with blood pressure medication. Decrease salt intake and exercise continuing with metoprolol 50 mg once a day (3) Barretts esophagus: Code(s): K22.70 - Kruse's esophagus without dysplasia Category: Medical Qualifiers: Kruse's esophagus type: without dysplasia Qualified Code(s): K22.70 - Kruse's esophagus without dysplasia Plan: Avoid the foods that causes that usually spicy foods, tomato products, juices, coffee, soda and foods that your sensitive to. After eating do not lie down, allow 3-4 hours before in lie down. And keep the head of bed above 30 degrees to avoid the acid from going up. (4) Hypercholesterolemia: Code(s): E78.00 - Pure hypercholesterolemia, unspecified Category: Medical Plan: Avoid fried foods, chicken skin, eggs, butter margarine, pastries and meat. Be it pork or beef they have a lot of cholesterol LDL goal of less than 70 and triglyceride of less than 150 patient is on atorvastatin 80 mg once a day (5) BPH (benign prostatic hyperplasia): Code(s): N40.0 - Benign prostatic hyperplasia without lower urinary tract symptoms Category: Medical Qualifiers: Lower urinary tract symptom presence: unspecified whether lower urinary tract symptoms present Qualified Code(s): N40.0 - Benign prostatic hyperplasia without lower urinary tract symptoms Plan: Continue to follow-up with urology had a recent cystoscopy (6) [place]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 [id number] Radiation oncologist Dr. 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 The patient has a history of coronary artery disease, hypertension, gastroesophageal reflux disease (GERD), Kruse's esophagus, hypercholesterolemia, benign prostatic hyperplasia (BPH), and Colleen cell carcinoma. He underwent a triple bypass surgery on September 16, 2024, due to chest pains experienced while mowing the lawn, which led to his transfer to [facility]. Post-surgery, he reports persistent shoulder pain, which is believed to be related to the surgical positioning, and he is experiencing sleep disturbances due to discomfort and difficulty finding a comfortable sleeping position. The patient has been diagnosed with moderate aortic stenosis, with the last echocardiogram showing a measurement of 1.2 cm, indicating stable moderate darlyn nosis. He also has a history of atrial fibrillation, for which he is currently on anticoagulation therapy with Eliquis and amiodarone. In August 2024, the patient was evaluated by urology for a urethral stricture and was advised to undergo urethral dilatation and diagnostic cystoscopy, which was performed recently. He also has mild thrombocytopenia, as noted in recent blood work, but his renal function and electrolytes remain normal. The patient is on a comprehensive medication regimen, including aspirin, Eliquis, metoprolol, atorvastatin, and omeprazole, among others. He reports adherence to his medication regimen and is actively engaged in his recovery, including participating in range of motion exercises and walking regularly. Health Maintenance - Cardiovascular risk management: Patient is on atorvastatin with an LDL goal of less than 70 mg/dL and triglycerides less than 150 mg/dL. - Regular follow-up with cardiology, urology, and hematology/oncology as part of ongoing care. - Encouraged to maintain a healthy lifestyle, including regular exercise and balanced nutrition. Social History - Exercise: Engages in regular walking and range of motion exercises. - Nutrition: Consumes a diet rich in vegetables and uses protein supplements as needed. Review of Systems - Cardiovascular: Reports chest pain while mowing the lawn. Denies syncope or palpitations. - Musculoskeletal: Reports persistent shoulder pain post-surgery. Denies increased pain with movement or palpation. - Neurological: Reports sleep disturbances due to discomfort. Denies dizziness or headaches. Physical Exam - Musculoskeletal: No increased pain upon movement or palpation of the shoulder, range of motion maintained. Results - Labs: Mild thrombocytopenia noted in recent blood work, normal renal function and electrolytes. - Echocardiogram: Moderate aortic stenosis with a measurement of 1.2 cm, stable condition. Plan The patient will continue with his current medication regimen, including aspirin, Eliquis, metoprolol, atorvastatin, and omeprazole, to manage his chronic conditions and prevent further cardiovascular events. Follow-up appointments with cardiology, urology, and hematology/oncology are recommended to monitor his conditions and adjust treatment as necessary. The patient is advised to continue engaging in regular physical activity and maintain a balanced diet to support his recovery and overall health. For his post-surgical shoulder pain, he is encouraged to perform range of motion exercises and apply heat as needed. Sleep disturbances should be managed with consistent use of melatonin, and the patient is advised to avoid additional sleep medications to prevent falls. Patient was informed and verbally consented to the use of an ambient scribe for clinic note documentation during this visit. Discussion Notes During the visit, we discussed the patient's current medication regimen and the importance of adherence to manage his chronic conditions effectively. We reviewe d the need for regular follow-up with cardiology, urology, and hematology/oncology to monitor his conditions and adjust treatment as necessary. The patient was advised to continue engaging in regular physical activity and maintain a balanced diet to support his recovery and overall health. We also discussed managing his post-surgical shoulder pain with range of motion exercises and heat application, and the use of melatonin for sleep disturbances while avoiding additional sleep medications to prevent falls. Patient Instructions - Continue taking all prescribed medications as directed. - Attend all scheduled follow-up appointments with specialists. - Engage in regular physical activity and maintain a balanced diet. - Perform range of motion exercises and apply heat for shoulder pain relief. - Use melatonin consistently for sleep disturbances and avoid additional sleep medications. Orders: Orders Complete Blood Count Auto Diff 2 Weeks I48.91 - Unspecified atrial fibrillation B Type Natriuretic Peptide 2 Weeks I48.91 - Unspecified atrial fibrillation Thyroid Stimulating Hormone 2 Weeks I48.91 - Unspecified atrial fibrillation Lipid Panel 2 Weeks E78.00 - Pure hypercholesterolemia, unspecified, I48.91 - Unspecified atrial fibrillation Comprehensive Met. Panel 2 Weeks I48.91 - Unspecified atrial fibrillation Free T4 (Free Thyroxine) 2 Weeks I48.91 - Unspecified atrial fibrillation Magnesium Today I48.91 - Unspecified atrial fibrillation Medications: New metoprolol succinate ER 25 mg PO DAILY 90 tabs 2RF I10 - Essential (primary) hypertension
== END 2024-09-28 11:40 | disposition home or self-care (01) ==
LOC: HO.HMCH 10:38
PROVIDERS: PCP Internal Medicine; Visit Provider Internal Medicine
DX: I25.10 Atherosclerotic heart disease of native coronary artery without angina pectoris (principal); I10 Essential (primary) hypertension; C4A.72 Merkel cell carcinoma of left lower limb, including hip; I48.91 Unspecified atrial fibrillation; K22.70 Barrett's esophagus without dysplasia; E78.00 Pure hypercholesterolemia, unspecified; N40.0 Benign prostatic hyperplasia without lower urinary tract symptoms; I35.0 Nonrheumatic aortic (valve) stenosis

== ENCOUNTER → 2024-09-28 10:37 | Outpatient (BNVA) | payer MEDICARE, SELFPAY | PROVIDERS: PCP Internal Medicine; Visit Provider Internal Medicine | DX: I25.10 Atherosclerotic heart disease of native coronary artery without angina pectoris (principal); I10 Essential (primary) hypertension; E78.00 Pure hypercholesterolemia, unspecified; K22.70 Barrett's esophagus without dysplasia; I35.0 Nonrheumatic aortic (valve) stenosis; I48.91 Unspecified atrial fibrillation; C4A.72 Merkel cell carcinoma of left lower limb, including hip | CPT/HCPCS: 99212 ==

== ENCOUNTER 2024-10-09 09:19 | Outpatient (REF) | payer MEDICARE, SELFPAY ==
--- OUTSIDE RECORDS SUMMARY | 2024-02-27 06:20 | XMS_ITS ---
Author Organization [facility] Address [address] [place] [phone] Care Team Providers Care Computer Laboratory Technician Name Role Phone Linda Medina MD Primary Care Provider Kiel Chavez [phone] REASON FOR VISIT colon screening, egd screening Encounters Encounter Location Date Provider Diagnosis [facility] [address] [place] [address] 02/27/2024 Kiel Mesa Plan Of Treatment No Information Progress Notes * CHERYL CLAYTON RDOB:[birth year] (74 yo M)Acc No.[id number]:02/27/2024 Progress Notes Patient: CHERYL PAINTING Provider: Stephanie Mesa MD :1950 A ge:73 Y S ex:Male Date:02/27/2024 Address:[address] [facility] [id number] Pcp:Linda Medina MD Subjective: * Chief Complaints: * 1 . Colon screening, egd screening. * Medical History: Objective: * Vitals: Assessment: Plan: * Treatment: * * The named appointment provid er may or may not be the originator of this progress note, and it is not deemed complete until electronically signed by the appointment provider. Sign off status: Pending * Provider: Stephanie Mesa MD Date: 1 04/28/2023 Generated for Printi ng/Faxing/eTransmitting on: 0 10/09/2024 09:42 AM EDT
[2024-10-09 09:54] LABS: MANUAL DIFF FLAG NO
[2024-10-09 09:57] LABS: Basophils Absolute Auto 0.1 X10*3/uL (0.0-0.2); Basophils Percent Auto 0.9 % (0-2); Eosinophils Absolute Auto 0.6 X10*3/uL (0.0-0.4); Eosinophils Percent Auto 8.6 % (0-4); Hematocrit 37.4 % (42.0-52.0); Imm Gran Abs Auto 0.03 X10*3/uL (0.00-0.03); Imm Gran Pct Auto 0.4 % (0.0-0.4); Lymphocytes Absolute Auto 1.1 X10*3/uL (1.2-4.9); Lymphocytes Percent Auto 15.7 % (20-40); Mean Corpuscular HGB Conc 32.1 g/dl (31.0-36.0); Mean Corpuscular Hemoglobin 28.5 pg (27.0-33.0); Mean Corpuscular Volume 88.8 fL (80.0-98.0); Mean Platelet Volume 9.9 fL (9.4-12.4); Monocytes Absolute Auto 0.5 X10*3/uL (0.1-1.2); Monocytes Percent Auto 7.6 % (2-11); Neutrophils Absolute Auto 4.6 x10*3/uL (2.0-8.3); Neutrophils Percent Auto 66.8 % (45-73); Platelet Count 216 X10*3/uL (160-400); Red Blood Count 4.21 X10*6/uL (4.60-5.80); Red Cell Distribution Width 13.9 % (11.0-16.0); White Blood Count 6.9 X10*3/uL (4.8-10.8)
[2024-10-09 10:13] LABS: Anion Gap 12 (12-20)
[2024-10-09 10:15] LABS: B Type Natriuretic Peptide 212 pg/mL (<100)
[2024-10-09 10:17] LABS: Alanine Aminotransferase 10 U/L (0-40); Albumin Level 4.1 g/dL (3.5-5.0); Alkaline Phosphatase 94 U/L (39-117); Aspartate Amino Transferase 17 U/L (5-37); Bilirubin Total 0.5 mg/dL (0.0-1.0); Blood Urea Nitrogen 16 mg/dL (9-16); Calcium 9.6 mg/dL (8.4-10.2); Carbon Dioxide 24 mmol/L (22-29); Chloride 105 mmol/L (96-108); Cholesterol 130 mg/dL (<200); Estimated Glomerular Filt Rate > 60; Glucose Random 114 mg/dL (60-115); HDL Cholesterol 43 mg/dL (>40); Iron 44 mcg/dL (45-160); LDL Cholesterol Calculated 68 mg/dL (<100); Percent Iron Saturation 16 % (15-50); Potassium 4.8 mmol/L (3.3-5.1); Sodium 136 mmol/L (135-145); Total Iron Binding Capacity 275 mcg/dL (228-428); Total Protein 6.9 g/dL (6.5-8.0); Triglycerides 96 mg/dL (<150); Unsaturated Iron Binding 231 ug/dL
[2024-10-09 10:29] LABS: Reticulocytes Absolute 0.113 X10*6/uL (0.026-0.095)
[2024-10-09 10:30] LABS: Immature Retic Fraction 20.2 % (2.3-13.4); Retic HGB Equivalent 28.7 pg (30.0-35.0); Reticulocyte Percent 2.7 % (0.5-1.8)
[2024-10-09 10:37] LABS: Ferritin 217 ng/mL (20-250); Free T4 (Free Thyroxine) 0.92 ng/dL (0.71-1.85); Thyroid Stimulating Hormone 4.67 uIU/mL (0.32-4.0)
== END 2024-10-09 09:20 | disposition home or self-care (01) ==
LOC: HO.10HDL 09:19
PROVIDERS: Visit Provider Internal Medicine
DX: I48.91 Unspecified atrial fibrillation (principal); E78.00 Pure hypercholesterolemia, unspecified; D64.9 Anemia, unspecified
CPT/HCPCS: 36415; 80053; 80061; 82728; 83540; 83735; 83880; 84439; 84443; 85025; 85045

== ENCOUNTER → 2024-10-26 23:59 | Outpatient (BNV) | payer MEDICARE, SELFPAY | PROVIDERS: PCP Internal Medicine; Visit Provider Internal Medicine | DX: I25.10 Atherosclerotic heart disease of native coronary artery without angina pectoris (principal); I10 Essential (primary) hypertension; I35.0 Nonrheumatic aortic (valve) stenosis | CPT/HCPCS: G0180 ==

== ENCOUNTER 2025-01-26 10:39 | Outpatient (AMB) | payer MEDICARE, SELFPAY ==
--- OUTSIDE RECORDS SUMMARY | 2024-02-27 06:20 | XMS_ITS ---
Author Organization [facility] Address [address] [place] [address] Care Team Providers Care Manager Beverage Name Role Phone Linda Medina MD Primary Care Provider Kiel Chavez [phone] REASON FOR VISIT colon screening, egd screening Encounters Encounter Location Date Provider Diagnosis [facility] [address] [place] [phone] 02/27/2024 Kiel Mesa Plan Of Treatment Next Appt Details Provider Name:Kiel Mesa , 02/24/2025 07:30:00 AM, [address] [place] [address] , [place], [place], [phone], Progress Notes * CHERYL CLAYTON RDOB:[birth year] (74 yo M)Acc No.[id number]:02/27/2024 Progress Notes Patient: CHERYL PAINTING Stephanie Provider: Stephanie Mesa MD :1950 A ge:73 Y S ex:Male Date:02/27/2024 Address:[address] [facility] [id number] Pcp:Linda Medina MD Subjective: * Chief Complaints: [...] Stephanie Mesa MD Date: 04/28/2023 Generated for Roni morgan/Geoff/Jonyitting on: 12:34 PM EDT
--- OUTSIDE RECORDS SUMMARY | 2024-09-23 07:30 | XMS_ITS ---
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 Name Role Phone Linda Medina MD Primary Care Provider Kiel Chavez [phone] REASON FOR VISIT ballard's, gerd, screening Encounters Encounter Location Date Provider Diagnosis [facility] Outpatient [address] [place] [address] [id number] 09/23/2024 Kiel Mesa Plan Of Treatment Next Appt Details Provider Name:Kiel Mesa , 02/24/2025 07:30:00 AM, [address] [place] [address], [phone], Progress Notes * CHERYL CLAYTON RDOB:[birth year] (74 yo M)Acc No.[id number]:09/23/2024 EGD and COL/MAC Patient: Garrett HENRYCHERYL Provider: Stephanie Mesa MD :1950 A ge:74 Y S ex:Male Date:09/23/2024 Address:[address] [facility] [id number] Pcp:Linda Medina MD Subjective: * Chief Complaints: * 1 . Ballard's, gerd, screening. * Medical History: Objective: * Vitals: Assessment: Plan: * Treatment: * * The named appointment provid er may or may not be the originator of this progress note, and it is not deemed complete until electronically signed by the appointment provider. Sign off status: Pending * Provider: Stephanie Mesa MD Date: 0 09/23/2024 Generated for Roni morgan/Geoff/Jonyitting on: 1 12:34 PM EDT
[2025-01-26 10:42] VITALS: BP 142/90; PULSE 65; TEMP 36.2; O2SAT 99; BMI 26.7
--- NOTE | 2025-01-26 10:42 | MHC.PC.OV ---
Vital Signs 01/26/25 10:42 Height 5 ft 9 in Weight 180 lb 8 oz BMI 26.7 BP 142/90 H Blood Pressure Location Lt brachial Position Sitting Pulse 65 Pulse Source Pulse Oximeter Temp 97.1 F Temp Source Temporal Artery Scan Pulse Oximetry (%) 99 Oxygen Delivery Method Room Air Intake Visit Reasons: Coronary artery disease Allergies simvastatin Allergy (Unknown, Verified 01/26/25 10:45) Unknown Medication List - Last Reconciled 01/26/25 by Linda Medina MD acetaminophen 1,000 mg PO Q6H PRN apixaban (Eliquis) 5 mg PO BID aspirin (Adult Aspirin Regimen) 81 mg PO DAILY@1700 atorvastatin 80 mg PO BEDTIME 90 days [Cbd Oil 50 mg PO DAILY] [cbd oil ] cetirizine (Zyrtec) 10 mg PO Q48H cholecalciferol (vitamin D3) 25 mcg PO DAILY@1200 coenzyme Q10 (CoQ-10) 100 mg PO DAILY cyanocobalamin (vitamin B-12) 1,000 mcg sublingual Q48H [EMU oil 1 appl topical DAILY] evolocumab (Repatha SureClick) 140 mg subcut Q2W folic acid 0.4 mg PO DAILY@1200 metoprolol succinate ER 25 mg PO DAILY omeprazole 20 mg PO DAILY Tobacco use date assessed: 01/26/25 Fall risk assessment: No Falls in past year Last assessed Fall Risk: 01/26/25 Dental Screening Dental Screen Date: 01/26/25 Did you have a dental visit in the last 12 months?: Yes Did you have a dental problem in the last 6 months where you did not have access to dental care?: No Was dental information given to patient?: Patient has dentist HPI Coronary artery disease HPI Details BP at homer 126-117 to 130/70-80 controlled BP PFSH Medical History (Updated 01/26/25 @ 10:59 by Linda Medina MD) COVID-19 virus infection Sebaceous cyst Medicare annual wellness visit, initial PFO (patent foramen ovale) Insomnia Scoliosis Arthritis Cancer, skin, squamous cell BPH (benign prostatic hyperplasia) 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 History of herpes genitalis Impaired glucose tolerance Hypercholesterolemia Ascending aorta dilatation Moderate aortic stenosis Barretts esophagus CAD (coronary artery disease) Overweight (BMI 25.0-29.9) History of asbestos exposure GERD (gastroesophageal reflux disease) Hypertension Surgical History Hx of squamous cell carcinoma excision Hx of colonoscopy History of esophagogastroduodenoscopy (EGD) History of prostate surgery History of vasectomy History of appendectomy Family History Father Hypertension CVD (cardiovascular disease) Mother Diabetes Past heart attack Social History Household Members: Spouse Housing: House Do you presently have visiting nurse or other home services: No Alcohol intake: current Alcohol intake frequency: 3 or more drinks per day Alcohol type: beer Comment: 2 beers Qd Patient Tobacco Use Status: Former Tobacco user Tobacco use type: Cigarette Years Smoked: 25 years ago e-Cigarette/Vaping Use: Never Used Second Hand Smoke Exposure: No Current occupational status: retired Cognitive needs: No Hearing needs: No Vision needs: Yes Questionnaire PHQ-9 Over the last 2 weeks, how often have you been bothered by any of the following problems? 1. Little interest or pleasure in doing things: several days 2. Feeling down, depressed, or hopeless: not at all 3. Trouble falling or staying asleep, or sleeping too much: more than half the days 4. Feeling tired or having little energy: more than half the days 5. Poor appetite or overeating: more than half the days 6. Feeling bad about yourself - or that you are a failure or have let yourself or your family down: not at all 7. Trouble concentrating on things, such as reading the newspaper or watching television: not at all 8. Moving or speaking so slowly that other people could have noticed. Or the opposite - being so fidgety or restless that you have been moving around a lot more than usual: not at all 9. Thoughts that you would be better off or of hurting yourself in some way: not at all Total score: 7 Source: Developed by Drs. Kiel Webb, Rohini Yu, Wily Rudolph and colleagues, with an educational mike from [employer]. Thrive Questionnaire Date Thrive assessed: 09/24/24 I am a: Patient What is your living situation today?: I have a steady place to live Within the past 12 months, did the food you bought not last and you didn't have the money to get more?: Never true Within the past 12 months, did you worry whether your food would run out before you got money to buy more?: Never true Do you have trouble paying for medicines?: No Do you have trouble getting transportation to medical appointments?: No Do you have trouble paying your heating and electricity bill?: No Do you have trouble taking care of your child, family member or friend?: No Do you have trouble with day-to-day activities such as bathing, preparing meals, shopping, managing finances, etc.?: No Are you currently unemployed and looking for a job?: No Are you interested in more education?: No Please select the resources that you would like help with: None Currently or been in a relationship where the following occur: No concerns reported THRIVE Score: 0 AUDIT C Alcohol Use Questionnaire (AUDIT-C) 1. How often do you have a drink containing alcohol?: 4 or more times a week 2. How many drinks containing alcohol do you have on a typical day when you are drinking?: 1 or 2 3. How often do you have six or more drinks on one occasion?: Never Total Score: 4 FAIZA-7 AMB Questionnaire FAIZA-7 Date FAIZA - 7 assessed: 09/28/24 Feeling nervous, anxious, or on edge: 0 = Not at all Not being able to stop or control worryin = Not at all Worrying too much about different things: 0 = Not at all Trouble relaxin = Not at all Being so restless that it is hard to sit still: 0 = Not at all Becoming easily annoyed or irritable: 0 = Not at all Feeling afraid as if something awful might happen: 0 = Not at all Total FAIZA-7 score (0-4 normal; 5-9 mild; 10-14 moderate; 15-21 severe): 0 Source: Developed by Drs. Kiel Webb, Rohini Yu, Wily Rudolph and colleagues, with an educational mike from [employer]. Physical exam (Primary Care) Vital Signs: Last Vital Signs Temp 97.1 F 01/26/25 10:42 Pulse 65 01/26/25 10:42 BP 142/90 H 01/26/25 10:42 Pulse Ox 99 01/26/25 10:42 Oxygen Delivery Method Room Air 01/26/25 10:42 BMI result Body Mass Index 26.7 Tobacco/Smoking Status: Tobacco use Status Tobacco use date assessed 01/26/25 01/26/25 10:49 Patient Tobacco Use Status Former Tobacco user 01/26/25 10:49 Tobacco use type Cigarette 01/26/25 10:49 e-Cigarette/Vaping Use Never Used 01/26/25 10:49 PHQ-9: PHQ-9 Score PHQ-9: Total score 7 01/26/25 10:54 Thrive Assessment: Date of Thrive Assessment Date Thrive assessed 09/24/24 01/26/25 10:49 Currently or been in a relationship where the following occur: No concerns reported Const General: alert; No acute distress Eyes Conjunctivae: conjunctivae normal Resp Auscultation: clear to auscultation bilaterally Cardio Rate: regular rate Rhythm: regular rhythm GI Inspection: Yes normal to inspection Extrem General: Yes normal to inspection and No edema Office Procedures Flu Questionnaire Does the patient have a severe egg allergy?: No Does the patient have severe life threatening allergies?: No Does the patient have a fever or illness today?: No Has the patient ever had Guillain-[place] Syndrome?: No Has the patient ever had any past reaction to a flu shot?: No Immunizations Fluarix [id number] (PF) 45 mcg (15 mcg x 3)/0.5 mL IM syringe Performing Provider: Linda Medina MD [place] [facility] [facility] Administered by: Charisse Netltes CMA on 01/26/25 10:53 Dose Route Admin Location Dispensed Lot Number Expiration Date [facility] Professor Of Management 0.5 mL IM Left Deltoid 0.5 mL [id number] 10/12/25 [id number] [employer] VIS Given Date VIS Provided VIS Publication Date 01/26/25 Single Vaccine 24 Eligibility Eligibility Date Funding Source Not [facility] Eligible 01/26/25 Private Coding Level of Care Code Est Pt Level 4 (16159) Complex EM visit Add On G2211 Diagnoses Moderate aortic stenosis I35.0 Essential hypertension I10 Hypertension type: essential hypertension Coronary artery disease involving yuhaaviatam coronary artery of yuhaaviatam heart without angina pectoris I25.10 Associated angina: without angina Coronary Disease-Associated Artery/Lesion type: yuhaaviatam artery [place] vs. transplanted heart: yuhaaviatam heart New onset a-fib I48.91 Hypercholesterolemia E78.00 Kruse's esophagus without dysplasia K22.70 Kruse's esophagus type: without dysplasia Assessment & Plan Assessment & Plan (1) Moderate aortic stenosis: Comment: 05/2023 1.2 cm 05/2024 Code(s): I35.0 - Nonrheumatic aortic (valve) stenosis Category: Medical (2) Hypertension: Code(s): I10 - Essential (primary) hypertension Category: Medical Qualifiers: Hypertension type: essential hypertension Qualified Code(s): I10 - Essential (primary) hypertension (3) CAD (coronary artery disease): Comment: Angioplasty 1993 Dr. Trimble echo October 2016 aortic dilatation 3.7 moderate , EF 55-60% echo October 2017 EF 60% moderate aorta 3.8 it February 2020 normal LV function 60-65% abnormal left ventricle diastolic function, mildly dilated atrium left, moderate aortic stenosis, I aorta 3.4 cm June 2021 ejection fraction 55-60% dilated left atrium PFO moderate CABD 09/2024 Code(s): I25.10 - Atherosclerotic heart disease of yuhaaviatam coronary artery without angina pectoris Category: Medical Qualifiers: Associated angina: without angina Coronary Disease-Associated Artery/Lesion type: yuhaaviatam artery [place] vs. transplanted heart: yuhaaviatam heart Qualified Code(s): I25.10 - Atherosclerotic heart disease of yuhaaviatam coronary artery without angina pectoris Plan: Control the cholesterol, weight, blood pressure, diabetes on Eliquis 5 mg twice a day and aspirin 81 mg once a day (4) New onset a-fib: Code(s): I48.91 - Unspecified atrial fibrillation Category: Medical Plan: Continue with anticoagulation on Eliquis (5) Hypercholesterolemia: Code(s): E78.00 - Pure hypercholesterolemia, unspecified Category: Medical Plan: Avoid fried foods, chicken skin, eggs, butter margarine, pastries and meat. Be it pork or beef they have a lot of cholesterol LDL goal of less than 70 and triglyceride of less than 150 on Repatha and atorvastatin 80 mg once a day (6) Barretts esophagus: Code(s): K22.70 - Kruse's esophagus without dysplasia Category: Medical Qualifiers: Kruse's esophagus type: without dysplasia Qualified Code(s): K22.70 - Kruse's esophagus without dysplasia Plan: Avoid the foods that causes that usually spicy foods, tomato products, juices, coffee, soda and foods that your sensitive to. After eating do not lie down, allow 3-4 hours before in lie down. And keep the head of bed above 30 degrees to avoid the acid from going up. Plan History of Present Illness The patient is a 74-year-old male presenting with a follow-up visit after recent cardiac surgery and to discuss ongoing management of chronic conditions. The patient has a history of Gastroesophageal Reflux Disease (GERD), Coronary Artery Disease (CAD), hypertension, and Kruse's Esophagus. He also has hypercholesterolemia, Benign Prostatic Hyperplasia (BPH), and a history of [place]dee Cell Carcinoma in the gluteal area. The patient underwent a triple coronary artery bypass graft (CABG) on September 16, 2024, due to multiple blockages. Post-surgery, he reports feeling better overall, with no episodes of atrial fibrillation since the procedure. His last blood work in September showed anemia with a hemoglobin level of 12 g/dL and elevated creatinine at 4.01 mg/dL, indicating chronic kidney disease. Electrolytes were normal, liver function was fine, and TSH was mildly elevated, suggesting hypothyroidism. Preventative care measures include a scheduled colonoscopy in February and a recommendation for an RSV vaccination due to his cardiac history. Health Maintenance - Colonoscopy scheduled for February - RSV vaccination recommended due to cardiac history - Annual ultrasound of the heart to monitor aortic stenosis - Regular monitoring of cholesterol levels with LDL goal of less than 70 mg/dL Social History Review of Systems - Cardiovascular: Reports feeling better post-surgery, no episodes of atrial fibrillation. Denies chest pain or heaviness. - Gastrointestinal: Denies any issues with bowel movements. - Genitourinary: Reports normal urination. - Neurological: Denies any vision problems, plans to have an eye check-up after the first of the year. Physical Exam Results - Labs: Anemia with hemoglobin level of 12 g/dL, elevated creatinine at 4.01 mg/dL, normal electrolytes, mildly elevated TSH. - Imaging: PET scan showed no evidence of Colleen cell carcinoma recurrence, but noted calcium buildup in arteries. Plan Patient was informed and verbally consented to the use of an ambient scribe for clinic note documentation during this visit. 1. Coronary Artery Disease (Cad) The patient underwent a triple coronary artery bypass graft (CABG) on September 16, 2024, due to multiple blockages. Post-surgery, he reports feeling better overall, with no episodes of atrial fibrillation since the procedure. He is on a regimen of Eliquis 5 mg twice daily and aspirin 81 mg once daily for anticoagulation. 2. Hypercholesterolemia The patient's LDL cholesterol goal is less than 70 mg/dL, currently at 68 mg/dL. He is on Repatha and atorvastatin 80 mg daily to manage cholesterol levels. 3. Moderate Aortic Stenosis The patient is scheduled for an annual ultrasound of the heart to monitor the aortic stenosis. The last ultrasound showed the valve opening at 1.8 cm, which was stable. 4. Anemia The patient's last blood work showed anemia with a hemoglobin level of 12 g/dL. Further follow-up blood work is planned to monitor this condition. 5. Chronic Kidney Disease The patient's creatinine level was elevated at 4.01 mg/dL, indicating chronic kidney disease. Regular monitoring of renal function is recommended. 6. Hypothyroidism The patient has a mildly elevated TSH, suggesting hypothyroidism. Monitoring of thyroid function is advised. 7. Preventative Care The patient is scheduled for a colonoscopy in February and has been advised to receive an RSV vaccination due to his cardiac history. Discussion Notes During the visit, we discussed the patient's recent cardiac surgery and the importance of continuing anticoagulation therapy with Eliquis and aspirin. We reviewed the need for regular monitoring of cholesterol levels and the use of Repatha and atorvastatin to maintain LDL levels below 70 mg/dL. The patient was advised to schedule a colonoscopy in February and to receive an RSV vaccination due to his cardiac history. Patient Instructions - Continue taking Eliquis 5 mg twice daily and aspirin 81 mg once daily as prescribed. - Maintain cholesterol management with Repatha and atorvastatin 80 mg daily. - Schedule and prepare for a colonoscopy in February. - Receive an RSV vaccination as recommended. - Follow up with blood work in two to three months to monitor anemia and kidney function. Orders: Orders Influenza [id number] Immunization Today Z23 - Encounter for immunization Comprehensive Met. Panel 2 Months D64.9 - Anemia, unspecified Ferritin 2 Months D64.9 - Anemia, unspecified Lipid Panel 2 Months D64.9 - Anemia, unspecified, E78.00 - Pure hypercholesterolemia, unspecified Thyroid Stimulating Hormone 2 Months D64.9 - Anemia, unspecified Vitamin B12 and Folate 2 Months D64.9 - Anemia, unspecified UA CC w/rflx Micro + Cult 2 Months D64.9 - Anemia, unspecified, R30.0 - Dysuria Magnesium 2 Months D64.9 - Anemia, unspecified Complete Blood Count Auto Diff 2 Months D64.9 - Anemia, unspecified Free T4 (Free Thyroxine) 2 Months D64.9 - Anemia, unspecified Hemoglobin A1c 2 Months D64.9 - Anemia, unspecified Prostate Specific Antigen Scr 2 Months D64.9 - Anemia, unspecified Reticulocyte Count 2 Months D64.9 - Anemia, unspecified
--- OUTSIDE RECORDS SUMMARY | 2025-01-26 12:34 | XMS_ITS | Clinical Summary ---
Author Organization [facility] [employer] [facility] Address [address] [place] [address] Phone Care Team Providers Care Porcelain Enamel Repairer Name Role Phone Linda Medina MD Primary Care Provider [phone] Allergies Active Allergy Reactions Criticality Noted Date Comments Niacin Medium 01/31/2021 Other reaction(s): Hepatitis Patient and report jaundice and he smelled like garlic Simvastatin Cough 01/31/2021 Dry cough Medications atorvastatin (LIPITOR) 80 mg tablet Take 80 [...] Capsule by mouth 2 times daily. Active aspirin 81 mg EC tablet Take 81 mg by mouth daily. 3 Active cetirizine (ZyrTEC) 10 mg tablet Take 1 tablet (10 mg total) by mouth 1 (one) time each day. Active sodium chloride (OCEAN) 0.65 % nasal spray Administer 1 spray into each nostril if needed for congestion. Active Repatha SureClick 140 mg/mL pen injector injection INJECT 1 ML INTO THE SKIN EVERY 14 DAYS 6 mL 2 5 Active melatonin 3 mg tablet Take by mouth. Activ e apixaban (ELIQUIS) 5 mg tabletIndicatio ns:Coronary artery disease of morongo artery of morongo heart with stable angina pectoris (CMS/HCC V24) Take 1 tablet (5 mg total) by mouth 2 (two) times a day. 180 tablet 3 5 Active Active Problems Problem Noted Date Diagnosed Date Paroxysmal atrial fibrillation (CMS/HCC V24, CMS /HCC V28) 10/09/2024 Assessment & Plan (10/09/2024 3:51 PM EDT): Paroxysmal atrial fibrillation. Mildly symptomatic. CHADSVASc - 6. SR today. Continue with apixaban. Consider 30 day ROCT. History of TIA (transient ischemic attack) 07/28 Overview (07/28/2024): December 2011 - presented with left arm numbness and left facial numbness with voice changes spontaneously resolved; MRI and MRA unrevealing Assessment & Plan (10/09/2024 3:30 PM EDT): No neurologic symptoms. Continue with aspirin, atorvastatin, amlodipine, atenolol, olmesartan and evolocumab. We discussed risk reduction through lifestyle choices including healthy diet, routine exercise and weight management. Assessment & Plan (07/28/2024 10:05 AM EDT): [...] on 06/13/2024 8:28 AM Assessment & Plan (10/09/2024 3:30 PM EDT): Moderate by last echocardiogram in June 2024. Continue to monitor by echocardiogram as per ACC standards and as clinically indicated. Assessment & Plan (07/28/2024 10:05 AM EDT): [...] clinically indicated. Hyperlipidemia 09/05/2020 Assessment & Plan (10/09/2024 3:30 PM EDT): September 2020 - LDL 73. Continue with atorvastatin and evolocumab. Assessment & Plan (07/28/2024 10:05 AM EDT): September 2020 - LDL 73. Continue with atorvastatin and evolocumab. Essential hypertension 09/05/2020 Assessment & Plan (10/09/2024 3:30 PM EDT): Controlled. Continue with amlodipine, atenolol, olmesartan. Assessment & Plan (07/28/2024 10:05 AM EDT): Controlled. Continue with amlodipine, atenolol, olmesartan. Coronary artery disease of n ative artery of morongo heart with stable angina pectoris ([facility] V24) 09/05/2020 Overview (10/09/2024): 1994 - sustained inferior STEMI status post RCA [...] suggestive of ischemia with no fixed defects August 2024 - angiogram showing multivessel disease; echocardiogram showing moderately reduced LV systolic function LVEF 35 to 40% with basal to mid inferior wall akinesis and moderate aortic stenosis September 2024 - successful three-vessel coronary artery bypass grafting with SVG to PDA, SVG to RI and YUNG to LAD with left atrial appendage clip by Dr. Benavides Assessment & Plan (10/09/2024 3:51 PM EDT): Inferior STEMI in 1995 status post RCA stenting with successful three vessel CABG in September 2024. Echocardiogram from 2024 showed improving, mild LV systolic dysfunction. No anginal symptoms. Continue with aspirin, apixaban, atorvastatin and evolocumab. Consider SGLT2 inhibitor. We discussed risk reduction through lifestyle choices including healthy diet, routine exercise and weight management. Orders: ECG 12 lead apixaban (ELIQUIS) 5 mg tablet; Take 1 tablet (5 mg total) by mouth 2 (two) times a day. Assessment & Plan (07/28/2024 10:05 AM EDT): [...] healthy diet, routine exercise and weight management. Immunizations Immunization Administration Dates Next Due Pfizer SARS-CoV-2 COVID-19, mRNA, LNP-S, preservative free 07/28/2020,07/07/2020 Medical History Medical History Date Comments GERD (gastroesophageal reflux disease) Family History Medical History Relation Name Comments [...] Sign Reading Time Taken Comments Blood Pressure 98/64 10/09/2024 8:06 AM EDT Pulse 98 06/30/2024 1:01 PM EDT Temperature - - Respiratory Rate - - Oxygen Saturation 97% 10/09/2024 8:06 AM EDT Inhaled Oxygen Concentration - - Weight 78.9 kg (174 lb) 10/09/2024 8:06 AM EDT Height 175.3 cm (5' 9 ) 10/05/2024 12:52 PM EDT Body Mass Index 25.7 10/05/2024 12:52 PM EDT Plan of Treatment Upcoming Encounters Date Type Department Care Team (Late st Contact Info) Description 02/19/2025 10:40 AM EST Office Visit [facility] [address] [phone] Gomez Cabral NP [address] [place] [address] [address] [place] [id number] 06/15/2025 9:00 AM EST Ancillary Procedure [facility] [address] [place] [address] Health Maintenance Due Date Last Done Comments Colorectal Cancer Screening: Colonoscopy 1950 Abdominal Aortic Aneurysm (AAA) Screen 03/25/2022 Falls Risk Assessment 03/25/2022 Hepatitis C Screening 03/25/2022 Social Influencers of Health Screening 03/25/2022 Medicare Annual Wellness Visit 03/20/2023 03/20/2022 Hypertension/CHF/CAD Annual BMP Blood Test 06/22/2023 06/21/2022, 06/21/2022, 02/02/2021 Depression Screening 04/15/2024 Pneumococcal Vaccine: 50+ Years (3 of 3 - PCV20 or PCV21) 04/27/2024 04/27/2019, 11/01/2016 COVID-19 Vaccine (4 - season) 2024 02/11/2021, 07/28/2020, 07/07/2020 Influenza Vaccine (#1) 2024 , 02/06/2023, 01/09/2021, Additional history exists Cholesterol Screening (Lipid Panel) 09/14/2025 09/14/2020 RSV Immunization Adult Patients (1 - 1-dose 75+ series) 2027 DTaP,Tdap,and Td Vaccines (2 - Td or Tdap) 03/26/2033 03/26/2023 Zoster Vaccines Completed 05/30/2020, 01/28/2020 HIB Vaccines Aged Out No longer eligi [...] Procedure Name Priority Date/Time Associated Diagnosis Comments ANNUAL BMP BLOOD TEST Routine 06/21/2022 LIPID PANEL Routine 09/14/2020 from Last 3 Months or Most Recently Relevant to Health Maintenance Results * Annual BMP Blood Test (06/21/2022) Pathologist [facility] Annual BMP Blood Test Abstracted Historical Provider HEALTH MAINTENANCE Final Result * Lipid panel (09/14/2020) Pathologist [facility] LDL/HDL Ratio 0 Triglycerides 0 mg/dL Cholesterol 0 mg/dL HDL 0 mg/dL LDL Cholesterol 0 mg/dL Blood Venous blood specimen / Unknown Historical Provider LAB BLOOD ORDERABLES Renee l Result from Last 3 Months or Most Recently Relevant to Health Maintenance Insurance MEDICARE [facility] Care Teams Porcelain Enamel Repairer Relationship Specialty Start Date End Date Linda Medina MD [address] [place] [address] [address] [facility] [place] [id number] PCP - General 12/26/12
--- OUTSIDE RECORDS SUMMARY | 2025-01-26 12:34 | XMS_ITS | Patient Health Record ---
Author Organization [facility] Address [address] [place] [id number] Care Team Providers Care Contact Center Manager Name Role Phone Po Linda OSEGUERA Primary Care Provider Kiel Chavez [phone] Allergies No Known Allergies Reason For Referral [...] Status Risk Notes Problem Colon cancer screening (948462840) Colon cancer screening (Z12.11) Active confirmed Problem Gastroesophageal reflux disease without esophagitis (853345198) Gastroesophageal reflux disease without esophagitis (K21.9) Active confirmed Problem Kruse's esophagus (398051146) Barretts esophagus without dysplasia (K22.70) Active confirmed Problem Kruse's esophagus (275981459) Kruse''s esophagus without dysplasia (K22.70) Active confirmed Vital Signs Blood pressure diastolic 11 mm Hg 06/16/2024 Height 69.5 in 06/16/2024 Blood pressure systolic 111 mm Hg 06/16/2024 Weight 180 lbs 06/16/2024 BMI 26.2 kg/m2 06/16/2024 Procedures Procedure Date Ordered Date Performed Result Body Sit e UPPER GI ENDOSCOPY 06/16/2024 N/A COLONOSCOPY 06/16/2024 N/A Encounters Encounter Location Date Provider Diagnosis [facility] [address] [place] [id number] 06/16/2024 Kiel Mesa Barretts esophagus without dysplasia K22.70 ; Gastroesophageal reflux disease without esophagitis K21.9 and Colon cancer screening Z12.11 [facility] [address] [place] [phone] 09/04/2024 Kiel Mesa Assessments Encounter Date Diagnosis (ICD Code) Assessment [...] ENDOSCOPY 10/25/2020 Next Appt Details Provider Name:Kiel Jarvis Mesa , 02/24/2025 07:30:00 AM, [address] [facility] , [place], [place], [phone], Insurance Providers Payer Name Payer Address Payer Phone Subscriber Number Group Number Insured Name Patient Relationship to Insured Coverage Start Date Coverage End Date MEDICARE OF [place] [address] [place] [address] [id number] CHERYL CLAYTON Self - patient is the insured 7 [employer] ATT[employer] CLAIMS [address] [place] [phone] [id number] CHERYL CLAYTON Self - patient is the insured Medical (General) History Medical History History ICD Code Colonoscopy 03-02-2004--only hyperplasti c polyps HTN [place] in 1993 with subsequent a ngioplasty---history of angina--Dr. Evans at [facility]--ETT was OK--no cath since 1993 Hyperlipidemia [...] followed by Echo's with Dr. 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
--- OUTSIDE RECORDS SUMMARY | 2025-01-26 12:34 | XMS_ITS | Clinical Summary ---
Author Organization [facility] Address [address] [place] [address] Phone Care Team Providers Care Creative Services Coordinator Name Role Phone Linda Medina MD Primary Care Provider [phone] Cherie Camargo MD, MPH Unavailable [phone] Symone Pelletier MD Unavailable Toño Vu MD, PhD Unavailable [phone] Eleni Monk MD Unavailable [phone] Allergies Active Allergy Reactions Criticality Noted Date Comments Niacin Hepatitis Medium 01/31/2021 Patient and report jaundice and he smelled like garlic Simvastatin Cough 01/31/2021 Dry cough Medications atorvastatin (LIPITOR) 80 MG tablet Take 80 mg by mouth daily. Active atenolol (TENORMIN) 50 mg tablet Take 50 mg by mouth daily. Active olmesartan (BENICAR) 20 mg tablet Take 20 mg by mouth daily. Active omeprazole (PRILOSEC) 20 MG capsule Take 20 mg by mouth daily. Active folic acid (FOLVITE) 400 MCG tablet Take 400 mcg by mouth daily. Active cholecalciferol (VITAMIN D3) 1,000 unit tablet Take 1,000 Units by mouth daily. Active aspirin 81 MG EC tablet Take 81 mg by mouth daily. Active emu oil, bulk, 100 % Liqd by Miscellaneous route daily. Active Medication-Free Text CBD OIL Active triamcinolone acetonide 0.1 % cream Apply topically 2 (two) times a day. For flares of rash on lower legs up to 2weeks/month. Avoid face, genitals, armpits. 30 g 1 06/22/19 Active Additional Information Patient not taking.Reported on 11/19/2024 amlodipine-celec oxib 5-200 mg Tab Take by mouth. Activ e evolocumab (REPATHA SURECLICK) 140 mg/mL PnIj subcutaneous pen injector Inject 140 mg under the skin every 14 (fourteen) days. Active coenzyme Q10 100 mg capsule Take 100 mg by mouth 2 (two) times a day. Active amLODIPine (NORVASC) 5 MG tablet Take 1 tablet by mouth every morning. 07/17/19 Active cetirizine (ZYRTEC) 5 MG tablet Take 5 mg by mouth daily. Active coenzyme L54-uvxy lip ac-vit E 30-50-100 mg-mg-unit Cap Take 100 mg by mouth. 09/05/19 Active folic acid 0.8 mg Cap Take 0.4 mg by mouth. 09/05/19 Active apixaban (ELIQUIS) 5 mg tablet Take 5 mg by mouth 2 (two) times a day. 09/05/19 Active melatonin 3 mg Tab Take by mouth. Activ e metoprolol succinate (TOPROL-XL) 50 MG 24 hr tablet Take 50 mg by mouth. 09/05/19 Active b complex vitamins (B COMPLEX-VITAMIN B12) tablet Take 1,000 mcg by mouth. 09/05/19 Active furosemide (LASIX) 20 MG tablet Take 1 tablet by mouth 2 (two) times a day. 09/23/19 Active amiodarone (PACERONE) 200 MG tablet Take 1 tablet by mouth 2 (two) times a day. 09/23/19 Active nitroglycerin (NITROSTAT) 0.4 MG SL tablet DISSOLVE 1 TABLET UNDER TONGUE EVERY 5 MINUTES NEEDED FOR CHEST PAIN. 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, left 1 [place] cell carcinoma 02/01/2021 Arthritis 01/31/2021 Ascending aorta dilation 01/31/2021 Kruse's esophagus 01/31/2021 BPH (benign prostatic hyperplasia) 01/31/2021 CAD (coronary artery disease) 01/31/2021 Squamous cell skin cancer 01/31/2021 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 History of asbestos exposure 01/31/2021 History of herpes genitalis 01/31/2021 Insomnia 01/31/2021 Moderate aortic stenosis 01/31/2021 PFO (patent foramen ovale) 01/31/2021 Scoliosis 01/31/2021 Secondary hypertension 10/26/2020 Hypercholesterolemia 10/26/2020 Gastroesophageal reflux disease without esophagi tis 10/26/2020 Angina pectoris 10/26/2020 Abnormal cardiac valve 10/26/2020 Encounters Date Type Department Care Team Description 12/31/2024 11:00 AM EDT [facility], [address] [place] [address] Eleni Monk MD 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); 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, left; Abnormal finding of diagnostic imaging 12/31/2024 11:00 AM EDT Office Visit [facility], [address], [address] [place] [address] Symone Pelletier MD 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) 12/31/2024 Orders Only [facility], [address], [address] [place] [address] Symone Pelletier MD Transylvania cell carcinoma (Primary Dx) 12/31/2024 Orders Only [facility], [address], [address] [place] [address] Symone Pelletier MD Trans[place] cell carcinoma (Primary Dx) 12/29/2024 10:54 AM EDT - 12/29/2024 11:59 PM EDT Hospital Encounter [facility], [facility], PET/CT [address] [place] [address] Symone Pelletier MD Discharge Disposition: Home or Self Care 11/19/2024 10:40 AM EDT Office Visit [facility] at [address] [address] Renuka Raza A, FRUIT INSPECTOR Laceration of right lower leg, initial encounter (Primary Dx) 11/16/2024 10:40 AM EDT Office Visit [facility] at [address] [address] Esther Powers, BRINELL TESTER Renuka Raza A, FRUIT INSPECTOR Laceration of right lower leg, initial encounter (Primary Dx) from Last 3 Months Immunizations Immunization Administration Dates Next Due COVID-19 (Pre-02/04) Pfizer Vaccine, mRNA, PF ,07/07/2020 INFLUENZA, SPLIT VIRUS, TRIVALENT W/ PRESERVATIV E IM 02/28/2015 Influenza High-Dose Trivalent Preservative Free IM 04/24/2018 Pneumococcal conjugate PCV13 04/27/2019 Pneumococcal polysaccharide PPSV23 11/01/2016 Zoster recombinant 05/30/2020,01/28/2020 Social History Tobacco Use Types Packs/Day Years Used Date Smoking Tobacco: Never Smokeless Tobacco: Never Alcohol Use Standard Drinks/Week Comments Yes 0 (1 standard drink = 0.6 oz pur e alcohol) daily Education Answer Date Recorded Are you interested in more education? Not on brandyn e 08/10/2022 Are you concerned about learning? Not on file 08/10/2022 No 08/10/2022 No 08/10/2022 Digital Access Answer Date Recorded No 09/07/2022 No 09/07/2022 Reliable internet access at home? Not on file 09/07/2022 Device with a working camera? Not on file Sex and Gender Information Value Date Recorded Sex Assigned at Male 10/20/2018 8:11 PM EDT Legal Sex Male 9:59 PM EDT Gender Identity Male 10/20/2018 8:11 PM EDT Sexual Orientation Straight 10/20/2018 8: 11 PM EDT Last Filed Vital Signs Vital Sign Reading Time Taken Comments Blood Pressure 140/75 12/31/2024 11:14 AM EDT Pulse 56 12/31/2024 11:14 AM EDT Temperature 36.3 C (97.4 F) 12/31/2024 11:14 AM EDT Respiratory Rate 18 12/31/2024 11:10 AM EDT Oxygen Saturation 100% 12/31/2024 11:14 AM EDT Inhaled Oxygen Concentration - - Weight 82.2 kg (181 lb 3.5 oz) 12/31/2024 11:10 AM EDT Height 173.8 cm (5' 8.43 ) 07/25/2023 3:47 PM ED T Body Mass Index 27.21 07/25/2023 3:47 PM EDT Plan of Treatment Upcoming Encounters Date Type Department Care Team (Late st Contact Info) Description 06/29/2025 11:10 AM EDT Blood Draw [facility] Services, [address] [place] [address] Symone Pelletier MD [address] [place] [id number] [email or web address] 12/28/2025 10:45 AM EDT Blood Draw [facility], [facility], Imaging S[facility]eg[facility] [address] [place] [address], Floor [address] [place] [address] Symone Pelletier MD [address] [place] [id number] [email or web address] 12/28/2025 12:30 PM EDT Appointment [facility], [facility], PET/CT [address] [place] [address] Symone Pelletier MD [address] [place] [id number] [email or web address] 12/30/2025 11:00 AM EDT Office Visit [facility], [address] [facility], [address]th [place] [address] Symone Pelletier MD [address] [facility] [address] [place] [address] [email or web address] 12/30/2025 11:00 AM EDT Office Visit [facility], [facility] [address] [facility], 5th [place] [address] Eleni Monk MD [address] [facility] [address] [place] [id number] [email or web address] Health Maintenance Due Date Last Done Comments TSH LEVEL 1952 DEPRESSION SCREENING 1964 HEPATITIS C SCREENING 1970 COLOGUARD 1997 COLONOSCOPY 1997 COLORECTAL CANCER SCREENING 1997 FIT TEST 1997 FOBT 1997 SIGMOIDOSCOPY 1997 VIRTUAL COLONOSCOPY 1997 PNEUMOCOCCAL VACCINES (50+ years) (3 of 3 - PPSV23, PCV20 or PCV21) 11/01/2021 04/27/2019, 11/01/2016 ALT LEVEL (ALANINE AMINOTRANSFERASE) 06/22/2023 06/21/2022, 02/02/2021, 09/14/2020 CREATININE LEVEL 06/22/2023 06/21/2022, 02/02/2021 POTASSIUM LEVEL 06/22/2023 06/21/2022, 02/02/2021 INFLUENZA VACCINE (#1) 2024 , 02/06/2023, 01/12/2022, Additional history exists COVID-19 VACCINE (2024- season) 2024 01/12/2022, 02/11/2021, 07/28/2020, Additional history exists BLOOD PRESSURE 06/30/2025 12/31/2024 RSV VACCINE (1 - 1-dose 75+ series) 2027 Adult Td,Tdap Booster 03/26/2033 03/26/2023 ZOSTER VACCINES Completed 05/30/2020, 01/28/2020 SMOKING STATUS SCREENING (Once After 26 Yrs) Completed 11/19/2024 HEPATITIS A VACCINES Aged Out No long er eligible based on patient's age to complete this topic HIB VACCINES Aged Out No longer eligi ble based on patient's age to complete this topic MENINGOCOCCAL VACCINES (ACWY) Aged Out No longer eligible based on patient's age to complete this topic MENINGOCOCCAL VACCINES (B) Aged Out N o longer eligible based on patient's age to complete this topic Medical Devices Not on file Procedures Procedure Name Priority Date/Time Associated Diagnosis Comments NM PET CT SCALP TO TOES Routine 12/29/2024 12:58 PM EDT Trans[place] cell carcinoma POCT GLUCOSE Routine 12/29/2024 11:26 AM EDT HC DFCI ONC COLLEEN CELL CARC DETCJ ANTB SERUM WENDY Routine 12/29/2024 10:51 AM EDT Colleen cell carcinoma SIGNATERA ONLY Routine 12/29/2024 LACERATION REPAIR Routine 11/16/2024 11: 12 AM EDT Laceration of right lower leg, initial encounter COMPREHENSIVE METABOLIC PANEL Routine 06/21/2022 12:42 PM EST Colleen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, left from Last 3 Months or Most Recently Relevant to Health Maintenance Results * NM PET CT Scalp to Toes (12/29/2024 12:58 PM EDT) Anatomical Region Laterality Modality Positron Emissio n Tomography (PET) Other 12/29/2024 2:18 PM EDT Impressions 12/30/2024 9:56 AM EDT 1. No convincing evidence of FDG-avid malignancy. 2. Focal cutaneous uptake in the lateral right lower leg, likely related to patient's known lower extremity laceration per the clinical notes, recommend correlation with direct visualization. ATTESTATION: I, Eleazar Cooper, as teaching physician have reviewed the images, if any, for this patient's exam, and if necessary, have edited the report originally created by Hannah Stockton. Narrative 12/30/2024 9:56 AM EDT Reason for exam (per EHR order): *Skin cancer, staging; The primary tumor is located on Additional clinical information obtained from the EHR: 74-year-old male. 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 Subsequent treatment strategy. TECHNIQUE: Radiopharmaceutical: F-18-FDG. Dose: 9.92 mCi. Blood glucose: 86 mg/dL. TECHNIQUE: At 63 minutes following IV tracer administration via a left antecubital vein, positron emission tomography was performed from the vertex of the skull through the toes. Non-contrast low-dose helical CT imaging was performed over the same range without breath-hold for attenuation correction of PET images and anatomic correlation. COMPARISON: PET/CT performed 12/31/2023 FINDINGS: HEAD AND NECK: No abnormal FDG uptake in the head and neck. CHEST: Ports and devices: None. Lungs: No abnormal FDG uptake. Pleura: No abnormal FDG uptake. Multifocal calcified pleural plaques, similar to prior. Lymph Nodes: No abnormal FDG uptake. Mediastinum: Postsurgical changes of coronary artery bypass grafting and left atrial appendage clip. Focal uptake in the left heart along the course of the left circumflex may represent postsurgical inflammatory change. Cardiomegaly. Breasts/Chest Wall: Bilateral symmetric gynecomastia. Postsurgical changes of median sternotomy with intense uptake along the sternotomy margins, likely inflammatory. ABDOMEN/PELVIS: Liver/biliary system: No abnormal FDG uptake. Pancreas: No abnormal FDG uptake. Spleen: No abnormal FDG uptake. Adrenal Glands: No abnormal FDG uptake. Kidneys: No abnormal FDG uptake. Bowel: No abnormal FDG uptake. Redundant sigmoid colon. Mesentery, Omentum and Peritoneum: Aneurysmal infrarenal abdominal aorta measuring 3.1 cm, unchanged. Atherosclerosis of the abdominal aorta and main branches. Pelvis Organs: No abnormal FDG uptake. Vasectomy clips. Lymph Nodes: No abnormal FDG uptake. MUSCULOSKELETAL: No abnormal FDG uptake. Small fat-containing bilateral inguinal hernias. LOWER EXTREMITIES: Focal cutaneous uptake at the lateral right lower leg (image 13). Small scar in the right gluteal subcutaneous tissues without focal uptake. 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 TECHNIQUE: Radiopharmaceutical: F-18-FDG. Dose: 9.92 mCi. Blood glucose: 86 mg/dL. TECHNIQUE: At 63 minutes following IV tracer administration via a leftantecubital vein, positron emission tomography was performed from thevertex of the skull through the toes. Non-contrast low-dose helical CTimaging was performed over the same range without breath-hold forattenuation correction of PET images and anatomic correlation. COMPARISON: PET/CT performed 12/31/2023 FINDINGS: HEAD AND NECK: No abnormal FDG uptake in the head and neck. CHEST: Ports and devices: None. Lungs: No abnormal FDG uptake. Pleura: No abnormal FDG uptake. Multifocal calcified pleural plaques,similar to prior. Lymph Nodes: No abnormal FDG uptake. Mediastinum: Postsurgical changes of coronary artery bypass grafting andleft atrial appendage clip. Focal uptake in the left heart along thecourse of the left circumflex may represent postsurgical inflammatorychange. Cardiomegaly. Breasts/Chest Wall: Bilateral symmetric gynecomastia. Postsurgical changesof median sternotomy with intense uptake along the sternotomy margins,likely inflammatory. ABDOMEN/PELVIS: Liver/biliary system: No abnormal FDG uptake. Pancreas: No abnormal FDG uptake. Spleen: No abnormal FDG uptake. Adrenal Glands: No abnormal FDG uptake. Kidneys: No abnormal FDG uptake. Bowel: No abnormal FDG uptake. Redundant sigmoid colon. Mesentery, Omentum and Peritoneum: Aneurysmal infrarenal abdominal aortameasuring 3.1 cm, unchanged. Atherosclerosis of the abdominal aorta andmain branches. Pelvis Organs: No abnormal FDG uptake. Vasectomy clips. Lymph Nodes: No abnormal FDG uptake. MUSCULOSKELETAL: No abnormal FDG uptake. Small fat-containing bilateralinguinal hernias. LOWER EXTREMITIES: Focal cutaneous uptake at the lateral right lower leg(image 13). Small scar in the right gluteal subcutaneous tissues withoutfocal uptake. IMPRESSION: 1. No convincing evidence of FDG-avid malignancy. 2. Focal cutaneous uptake in the lateral right lower leg, likely relatedto patient's known lower extremity laceration per the clinical notes,recommend correlation with direct visualization. ATTESTATION: I, Eleazar Cooper, as teaching physician have reviewedthe images, if any, for this patient's exam, and if necessary, have editedthe report originally created by Hannha Stockton. us Symone Pelletier MD IMG NM PET Final Result * POCT Glucose (12/29/2024 11:26 AM EDT) WHOLE BLOOD GLUCOSE 86 70 - 110 mg/dL CLINICAL LABORATORY 12/29/2024 11:2 6 AM EDT 12/29/2024 11:29 AM EDT Symone Pelletier MD POINT OF CARE TEST ORDERABLES Fi nal Result Performing Organization Address [facility] Co de Phone Number CLINICAL LABORATORY [address] [place] [address] * Colleen cell antibody (12/29/2024 10:51 AM EDT) COLLEEN CELL ANTIBODY SEE MANUAL REPORT [facility]ICAL LAB[facility]ATORY Blood 12/29/2024 10:5 1 AM EDT 12/29/2024 11:28 AM EDT us Symone Pelletier MD LAB BLOOD ORDERABLES Final Resul t Performing Organization Address [facility] Co de Phone Number CL[facility]ICAL LAB[facility]ATORY [address] [place] [address] * Signatera only (12/29/2024) Signatera Test Result NEGATIVE JENNIFER Signatera MTM Readout 0 JENNIFER Comment: A full complement of 16 bespoke assays could not be designed from this particular tumor section. Testing with less than 16 assays may decrease clinical sensitivity. Please see the attached PDF for more information. Limitations Signatera is a personalized, tumor-informed test for the longitudinal detection of circulating tumor DNA (ctDNA). Interval testing is recommended for all patients. Studies have demonstrated that when ctDNA is detected (Signatera Positive) following surgery or definitive treatment, the risk for disease relapse is high without further treatment. Conversely, when ctDNA is not detected, the patient may be considered at lower risk for relapse. For those with multiple timepoints, upward trending ctDNA levels are suggestive of increasing tumor burden (1,2). For a single time point in isolation, the absolute MTM/mL value has no known clinical significance and should not be compared across patients. Test results should be interpreted in context of other clinicopathological features. ctDNA detection sensitivity may be limited due to blood collection within two weeks of surgery and while the patient is on therapy. Signatera is a quantitative test and reports in units of mean tumor molecules per ml (MTM/mL), which is comprised of three measured components (plasma volume, cell free DNA (cfDNA) concentration, and Variant Allele Frequency (VAF)). The MTM/mL number will be qualified if any measured component falls outside the analytical measurement range for that component. The analytical sensitivity is 95% at the limit of detection (0.3 MTM/mL). Results obtained are specific to the assessed time point. A negative test result does not definitively indicate the absence of cancer. This test is not designed to detect or report germline variation, nor does it infer hereditary cancer risk for the patient. Each Signatera assay is designed to a single tumor for a given patient. At this time, multiple personalized Signatera assays cannot be developed for the same patient. This test is designed to detect ctDNA from the assayed tumor only; new primary tumors will not be detected. There is a low risk that a new primary may share a variant that could interfere with the Signatera test. Testing cannot be performed in patients who are , have a history of bone marrow transplant, or history of blood transfusion within three months. This test is expected to have limited sensitivity in cancer types such as GIST, renal cell carcinomas, primary brain tumors, and lymphoma due to limited ctDNA shed. 1 Ramy SV, Donald FERRELLC, Cy RAINEY, et al. Personalized circulating tumor DNA analysis as a predictive biomarker in solid tumor patients treated with pembrolizumab. Nature Cancer. 2020;1(9):873-881. 2 Meliza TV, Jayne N, et al., Circulating Tumor DNA in Stage III Colorectal Cancer, beyond Minimal Residual Disease Detection, toward Assessment of Adjuvant Therapy Efficacy and Clinical Behavior of Recurrences. Clin Cancer Res. 2020; 28(3):507-517. Methodology FFPE samples are assessed by a pathologist to identify tumor margins and percent tumor content. Tumor DNA is extracted using Qiagen AllPrep. Whole genomic DNA is isolated from peripheral blood using QIAamp DNA Blood Mini Kit to provide a baseline DNA sequence. Circulating tumor DNA (ctDNA) is extracted from plasma derived from whole blood samples collected in cell-free DNA blood tubes ([employer]EBTH)) using the QIACloudPhysicsmphony automated or manual extraction method (Qiagen). Using a proprietary algorithm, putative, clonal variants present in the tumor but absent in the germline DNA are identified to design the customized multiplex PCR assay. Whole-exome sequencing is performed on tumor and peripheral blood DNA using the proprietary LogRhythm whole-exome sequencing assay. Pathology services are performed at [facility], [address] [place] [address], and whole exome sequencing is performed at [email or web address] (CLIA ID# [id number]), [address] [place] [address]. Disclaimer The extraction, library preparation, and sequencing for this test were performed by [employer] [address] [place] [address] (CLIA ID [id number]). The data analysis and reporting for this test were performed by [employer] [address] [address] (CLIA ID [id number]). This test was developed and its performance characteristics determined by [employer]. The test has not been cleared or approved by the U.S. Food and Drug Administration (FDA). CAP accredited, ISO 07497 certified, and CLIA certified. Pathology services and whole exome sequencing for this test were performed by [email or web address] (CLIA ID # [id number]), [address] [place] [address]. 2020 [employer]. All Rights Reserved. 12/29/2024 us Symone Pelletier MD LAB BLOOD ORDERABLES Final Resul t JENNIFER [address] [place] [address], [facility] [phone] * LACERATION REPAIR (11/16/2024 11:12 AM EDT) Other Narrative Renuka Raza FNP - 11/16/2024 11:12 AM EDT Renuak Raza FNP 11/16/2024 11:17 AM Laceration/Wound Repair Date/Time: 11/16/2024 11:12 AM Performed by: Renuka Raza FNP Authorized by: Esther Powers CNP Injury: Body area: Lower extremity Location details: Right lower leg Laceration length (cm): 2 Foreign bodies: No foreign bodies Tendon involvement: None Nerve involvement: None Vascular damage?: No Procedure Details: Irrigation solution: Saline Irrigation method: Syringe Amount of cleaning: Standard Dressing: Non-adhesive packing strip, 4x4 sterile gauze and antibiotic ointment Patient tolerance: Patient tolerated the procedure well with no immediate complications No sutures. Bacitracin, xeroform, 4x4. [place] and camille Esther Powers CNP PROCEDURE/MINOR SURGICAL OR DERABLES Final Result * (ABNORMAL) Comprehensive metabolic panel (06/21/2022 12:42 PM EST) SODIUM 138 136 - 145 mmol/L [facility] LIC# [id number] POTASSIUM 5.1 3.4 - 5.1 mmol/L [facility] LIC# [id number] CHLORIDE 106 98 - 107 mmol/L [facility] LIC# [id number] CO2 24 22 - 31 mmol/L [facility] LIC# [id number] BUN 17 6 - 23 mg/dL [facility] LIC# [id number] CREATININE 0.94 0.50 - 1.20 mg/dL [facility] LIC# [id number] GLUCOSE 103(H) 70 - 100 mg/dL [facility] LIC# [id number] ALBUMIN 4.1 3.5 - 5.2 g/dL [facility] LIC# [id number] TOTAL PROTEIN 6.6 6.4 - 8.3 g/dL [facility] LIC# [id number] CALCIUM 9.3 8.8 - 10.7 mg/dL [facility] LIC# [id number] ALKALINE PHOSPHATASE 53 40 - 129 U/L [facility] LIC# [id number] TOTAL BILIRUBIN 0.6 0.2 - 1.2 mg/dL [facility] LIC# [id number] AST 18 <41 U/L [facility] LIC# [id number] ALT 15 <42 U/L [facility] LIC# [id number] GLOBULIN 2.5 2.3 - 4.2 g/dL [facility] LIC# [id number] EGFR 87 >59 mL/min/1.7 3m2 [facility] LIC# [id number] Comment:Estimated glomerular filtration rate calculated using the CKD-EPI refit equation. ANION GAP 8 7 - 17 mmol/L [facility] LIC# [id number] Blood 06/21/2022 12:4 2 PM EST 06/21/2022 12:45 PM EST us Pratima Hyatt PA-C LAB BLOOD ORDERABLES Fin al Result [facility] LIC# [id number] [address] [place] [address] from Last 3 Months or Most Recently Relevant to Health Maintenance Insurance MEDICARE PART A & B [employer] MEDEX SUPPLEMENT MEDICARE PART A & B [employer] MEDEX SUPPLEMENT MEDICARE PART A & B [employer] MEDEX SUPPLEMENT MEDICARE PART A & B [employer] MEDEX SUPPLEMENT MEDICARE PART A & B ControlScan MEDEX SUPPLEMENT [facility] [place] [id number] MEDICARE PART A & B [employer] MEDEX SUPPLEMENT MEDICARE PART A & B [employer] MEDEX SUPPLEMENT MEDICARE PART A & B [employer] MEDEX SUPPLEMENT MEDICARE PART A & B [employer] MEDEX SUPPLEMENT Advance Directives For more information, please contact: [phone] (9AM - 5PM [facility], Saturday-Saturday) Documents on File Type Date Recorded 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 Oncology 02/02/21 Symone Pelletier MD [address] [place] [address] [email or web address] Medical Oncology 02/09/21 Toño Vu MD, PhD [address] [place] [address] Division [place] [address] [email or web address] 02/09/21 Eleni Monk MD [address] [place] [id number] [email or web address] Dermatology 04/26/21 Additional Source Comments The information contained in this document represents components of the legal health record. It is not the complete legal health record.[facility]
--- OUTSIDE RECORDS SUMMARY | 2025-01-26 12:34 | XMS_ITS ---
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 Past Treatment and Therapy Plans TREATMENT PLAN Plan Name Start Date Discontinue Date Treatment Medications Discontinue Reason Plan Provider Cycles Pembrolizumab 200 mg every 3 weeks 021 02/06/2021 pembrolizumab (KEYTRUDA) delmar Entered in error Symone Pelletier MD Treatment not started Radiation Treatments * Course C1 03/01/2021 - 04/03/2021 Treatment Period Energy Fraction Dose Fractions Total Dose Plans Planned A1_L_thigh 03/01/2021 - 04/03/2021 200 cGy 4,600 cGy B1_R_Buttock 03/01/2021 - 04/03/2021 200 cGy 4,600 cGy D1_bil_inguin 03/01/2021 - 04/03/2021 200 cGy 4,600 cGy Reference Points Delivered A_L_thigh 03/01/2021 - 04/03/2021 4,600 cGy B_R_buttock 03/01/2021 - 04/03/2021 4,600 cGy D_bil_inguinal 03/01/2021 - 04/03/2021 4,600 cGy
== END 2025-01-26 11:18 | disposition home or self-care (01) ==
LOC: HO.HMCH 10:40
PROVIDERS: PCP Internal Medicine; Visit Provider Internal Medicine
DX: I35.0 Nonrheumatic aortic (valve) stenosis (principal); I10 Essential (primary) hypertension; I25.10 Atherosclerotic heart disease of native coronary artery without angina pectoris; I48.91 Unspecified atrial fibrillation; E78.00 Pure hypercholesterolemia, unspecified; K22.70 Barrett's esophagus without dysplasia; Z23 Encounter for immunization

== ENCOUNTER → 2025-01-26 10:39 | Outpatient (BNVA) | payer MEDICARE, SELFPAY | PROVIDERS: PCP Internal Medicine; Visit Provider Internal Medicine | DX: I25.10 Atherosclerotic heart disease of native coronary artery without angina pectoris (principal); I35.0 Nonrheumatic aortic (valve) stenosis; I48.91 Unspecified atrial fibrillation; E78.00 Pure hypercholesterolemia, unspecified; K22.70 Barrett's esophagus without dysplasia; I12.9 Hypertensive chronic kidney disease with stage 1 through stage 4 chronic kidney disease, or unspecified chronic kidney disease; N18.9 Chronic kidney disease, unspecified; D63.1 Anemia in chronic kidney disease; Z23 Encounter for immunization; E03.9 Hypothyroidism, unspecified | CPT/HCPCS: 90471; 90656; 96127; 99212 ==

== ENCOUNTER 2025-02-24 06:31 | Day surgery (SDC) | payer MEDICARE, SELFPAY ==
--- OUTSIDE RECORDS SUMMARY | 2024-08-28 10:47 | XMS_ITS | Clinical Summary ---
Author Organization [facility] Address [address] [place] [address] Phone Care Team Providers Care Optical Fabricator Name Role Phone Linda Medina MD Primary Care Provider [phone] Allergies Active Allergy Reactions Criticality Noted Date Comments Hydrochlorothiazide 09/05/2020 Lisinopril 09/05/2020 Niacin Medium 01/31/2021 Other reaction(s): Hepatitis Patient and report jaundice and he smelled like garlic Simvastatin Cough 01/31/2021 Dry cough Medications atenoloL (TENORMIN) 50 mg tablet Take 50 mg by mouth daily. Active atorvastatin (LIPITOR) 80 mg tablet Take 80 mg by mouth daily. 3 Active cyanocobalamin (VITAMIN B-12) 250 mcg tablet Take 1 Tablet by mouth every other day. 0 Active folic acid (FOLVITE) 400 mcg tablet Take 1 Tablet by mouth daily. Active nitroglycerin (NITROSTAT) 0.[address] 1 Tablet under the tongue every 5 minutes as needed for Chest pain. 3 bottles of 25 2 Active omeprazole 20 mg tablet,disinteg rat, delay rel 20 mg daily. 9 Active coenzyme Q-10 100 mg capsule Take 1 Capsule by mouth 2 times daily. Active olmesartan (BENICAR) 20 mg tablet Take 20 mg by mouth daily. 3 Active aspirin 81 mg EC tablet Take 81 mg by mouth daily. 3 Active amLODIPine (NORVASC) 5 mg tabletIndicatio ns:Atherosclero tic heart disease of [place] coronary artery with other forms of angina pectoris (CMS/HCC V24) TAKE 1 TABLET BY MOUTH EVERY DAY 90 tablet 1 5 Active cetirizine (ZyrTEC) 10 mg tablet Take 1 tablet (10 mg total) by mouth 1 (one) time each day. Active sodium chloride (OCEAN) 0.65 % nasal spray Administer 1 spray into each nostril if needed for congestion. Active Repatha SureClick 140 mg/mL pen injector injection INJECT 1 ML INTO THE SKIN EVERY 14 DAYS 6 mL 2 5 Active Active Problems Problem Noted Date Diagnosed Date History of TIA (transient ischemic attack) 07/28 Overview (07/28/2024): December 2011 - presented with left arm numbness and left facial numbness with voice changes spontaneously resolved; MRI and MRA unrevealing Assessment & Plan (07/28/2024 10:05 AM EDT): No neurologic symptoms. Continue with aspirin, atorvastatin, amlodipine, atenolol, olmesartan and evolocumab. We discussed risk reduction through lifestyle choices including healthy diet, routine exercise and weight management. Preop cardiovascular exam 07/28/2024 Assessment & Plan (07/28/2024 10:05 AM EDT): Patient is going for colonoscopy/endoscopy. He is stable from CV standpoitn. He is low risk for this procedure. He may interrupt his aspirin but no more than 5 days prior to procedure. Ideally he would stay on this periprocedurally. Dyspnea on exertion 10/09/2022 Nonrheumatic aortic (valve) stenosis 09/05/2020 Overview (07/28/2024): 06/10/24 TRANSTHORACIC ECHOCARDIOGRAM (TTE) COMPLETE (CONTRAST/BUBBLE/3D PRN) 06/13/2024 06/10/2024 Interpretation Summary Left ventricle cavity size is normal. Wall thickness is normal. Systolic function is normal with an ejection fraction in the 55-70% range. There are no regional LV wall motion abnormalities Moderate aortic stenosis The ascending aorta is mildly dilated (3.8 cm). Compared to the prior study from 2023, the LV is no longer dilated and the aortic valve gradients are lower most consistent with moderate aortic stenosis; other findings as detailed appear stable Signed by: Jordan Batista MD on 06/13/2024 8:28 AM Assessment & Plan (07/28/2024 10:05 AM EDT): Moderate by last echocardiogram in June 2024. Continue to monitor by echocardiogram as per ACC standards and as clinically indicated. Orders: Transthoracic echocardiogram (TTE) complete with PRN contrast, bubble, strain, and 3D order panel; Future Assessment & Plan (07/28/2024 9:53 AM EDT): Moderate on June 2024 echocardiogram. Continue to monitor by echocardiogram as per ACC standards and as clinically indicated. Hyperlipidemia 09/05/2020 Assessment & Plan (07/28/2024 10:05 AM EDT): September 2020 - LDL 73. Continue with atorvastatin and evolocumab. Essential hypertension 09/05/2020 Assessment & Plan (07/28/2024 10:05 AM EDT): Controlled. Continue with amlodipine, atenolol, olmesartan. Coronary artery disease of n ative artery of [place] heart with stable angina pectoris ([facility] V24) 09/05/2020 Overview (07/28/2024): 1995 - sustained inferior STEMI status post RCA angioplasty October 2022 treadmill nuclear stress test with patient exercising 6 minutes and 52 seconds to an MPHR of 68% having mild chest discomfort at peak exercise resolved in recovery with peak blood pressure of 188/80, mild EKG changes including 1.5 to [address] depressions in leads II, III, aVF, V5 and V6 with imaging showing a medium in size and moderate in intensity mostly fixed perfusion defect in the basal to apical inferior wall, when attenuation correction was applied the perfusion defect was partially corrected, however there was still a small in size, mild in intensity reversible perfusion defect in the apical inferior wall suggestive of ischemia with no fixed defects Assessment & Plan (07/28/2024 10:05 AM EDT): Inferior STEMI in 1995 status post RCA stenting. Last Nuclear stress test in October 2022 showed low risk results of small in size mild in intensity reversible perfusion defect. Echocardiogram from 2024 showed preserved LV systolic function. No resting anginal symptoms with stable predictable exertional symptoms well controlled. Continue with aspirin, atorvastatin, amlodipine, atenolol, olmesartan and evolocumab. We discussed risk reduction through lifestyle choices including healthy diet, routine exercise and weight management. Encounters Date Type Department Care Team Description 06/30/2024 1:10 PM EDT [facility] [address] [place] [address] [place] [address] Gomez Cabral NP Nonrheumatic aortic (valve) stenosis (Primary Dx); Coronary artery disease of [place] artery of [place] heart with stable angina pectoris ([facility] V24); History of TIA (transient ischemic attack); Essential hypertension; Preop cardiovascular exam; Hyperlipidemia, unspecified hyperlipidemia type 06/16/2024 Telephone [facility] [address] [place] [address] Kiel Trimble MD Echo Results 06/16/2024 [address]phone [facility] [address] [place] [address] Kiel Trimble MD Call from MD office 06/10/2024 10:00 AM EST Ancillary Procedure [facility] [address] [place] [phone] Nonrheumatic aortic (valve) stenosis from Last 3 Months Immunizations Name Administration Dates Next Due Pfizer SARS-CoV-2 COVID-19, mRNA, LNP-S, preservative free 07/28/2020,07/07/2020 Family History Medical History Relation Name Comments Heart failure Father Relation Name Status Comments Father Social History Tobacco Use Types Packs/Day Years Used Date Smoking Tobacco: Former Cigarettes Q uit: 04/15/1994 Smokeless Tobacco: Never Alcohol Use Standard Drinks/Week Comments Yes 0 (1 standard drink = 0.6 oz pur e alcohol) couple beers a night Sex and Gender Information Value Date Recorded Sex Assigned at Not on file Legal Sex Male 6:43 PM EST Gender Identity Not on file Sexual Orientation Not on file Obstetrics History Last Filed Vital Signs Vital Sign Reading Time Taken Comments Blood Pressure 136/82 06/30/2024 1:01 PM EDT Pulse 98 06/30/2024 1:01 PM EDT Temperature - - Respiratory Rate - - Oxygen Saturation 45% 06/30/2024 1:01 PM EDT Inhaled Oxygen Concentration - - Weight 84.5 kg (186 lb 4.8 oz) 06/30/2024 1:01 P M EDT Height 177.8 cm (5' 10 ) 06/30/2024 1:01 PM EDT Body Mass Index 26.73 06/30/2024 1:01 PM EDT Plan of Treatment Upcoming Encounters Date Type Department Care Team (Late st Contact Info) Description 06/15/2025 9:00 AM EST Ancillary Procedure [facility] [address] [place] [address] Health Maintenance Due Date Last Done Comments Pneumococcal Vaccine: 50+ Years (3 of 3 - PPSV23, PCV20 or PCV21) 11/01/2021 04/27/2019, 11/01/2016 Abdominal Aortic Aneurysm (AAA) Screen 03/25/2022 Colorectal Cancer Screening: Colonoscopy 03/25/2022 Depression Screening 03/25/2022 Falls Risk Assessment 03/25/2022 Hepatitis C Screening 03/25/2022 Social Influencers of Health Screening 03/25/2022 Medicare Annual Wellness Visit 03/20/2023 03/20/2022 Hypertension/CHF/CAD Annual BMP Blood Test 06/22/2023 06/21/2022, 06/21/2022, 02/02/2021 COVID-19 Vaccine ( season) 2023 02/11/2021, 07/28/2020, 07/07/2020 Cholesterol Screening (Lipid Panel) 09/14/2025 09/14/2020 RSV Immunization Adult Patients (1 - 1-dose 75+ series) 2027 DTaP,Tdap,and Td Vaccines (2 - Td or Tdap) 03/26/2033 03/26/2023 Zoster Vaccines Completed 05/30/2020, 01/28/2020 Influenza Vaccine Completed 01/21/2024, , 01/09/2021, Additional history exists HIB Vaccines Aged Out No longer eligi ble based on patient's age to complete this topic HPV Vaccines Aged Out No longer eligi ble based on patient's age to complete this topic Hepatitis A Vaccines Aged Out No long er eligible based on patient's age to complete this topic Hepatitis B Vaccines Aged Out No long er eligible based on patient's age to complete this topic IPV Vaccines Aged Out No longer eligi ble based on patient's age to complete this topic MMR Vaccines Aged Out No longer eligi ble based on patient's age to complete this topic Meningococcal ACWY Vaccine Aged Out N o longer eligible based on patient's age to complete this topic Meningococcal B Vaccine Aged Out No l onger eligible based on patient's age to complete this topic RSV Immunization Patients Under 20 months Aged Out No longer eligible based on patient's age to complete this topic Varicella Vaccines Aged Out No longer eligible based on patient's age to complete this topic Procedures Procedure Name Priority Date/Time Associated Diagnosis Comments TRANSTHORACIC ECHOCARDIOGRAM (TTE) COMPLETE Routine 06/10/2024 10:42 AM EST Nonrheumatic aortic (valve) stenosis ANNUAL BMP BLOOD TEST Routine 06/21/2022 LIPID PANEL Routine 09/14/2020 from Last 3 Months or Most Recently Relevant to Health Maintenance Results * (ABNORMAL) TRANSTHORACIC ECHOCARDIOGRAM (TTE) COMPLETE (06/10/2024 10:42 AM EST) Left Atrium Minor Rumford 5.9 cm CV PACS Left Atrium Major Rumford 6.1 cm CV PACS LA Area Sys (A2C) 24 cm2 CV PACS LA Area Sys (A4C) 23 cm2 CV PACS LA Volume (BP) 73 mL CV PACS RA Area 12.1 cm2 CV PACS RA 2D Volume 29 mL CV PACS AV Mean Gradient 17 mmHg CV PACS Ao VTI 78.8 cm CV PACS AV Peak Alexy 2.8 m/s CV PACS AV Peak Gradient 32 mmHg CV PACS AV Area Continuity Equation 1.8 cm2 CV PACS AV Area Peak Velocity 1.7 cm2 CV PACS Aortic Sinus Valsalva 3.3 cm CV PACS Ascending Aorta 3.8 cm CV PACS IVC Proximal 1.5 cm CV PACS IVC Proximal 0.4 cm CV PACS IVSD 1.0 0.6 - 1.0 cm CV PACS LVIDD 5.7 4.2 - 5.8 cm CV PACS LVIDS 4.0 2.5 - 4.0 cm CV PACS LVOT Diameter 2.4 cm CV PACS LVOT Mean Alexy 0.7 m/s CV PACS LVOT Mean Grad 2 mmHg CV PACS LVOT Mean Grad 2 mmHg CV PACS LVOT Peak VTI 31.8 cm CV PACS LVOT Peak Alexy 1.1 m/s CV PACS LVOT Peak Gradient 4 mmHg CV PACS LVPWD 1.0 0.6 - 1.0 cm CV PACS MV E' Tissue Velocity Lateral 5 cm/s CV PACS MV E' Tissue Velocity Septal 3 cm/s CV PACS LVOT Area 4.5 cm2 CV PACS LVOT Stroke Volume 144 mL CV PACS E Wave Deceleration Time 274(A) 119 - 242 ms CV PACS MV Peak A Alexy 0.88 m/s CV PACS MV Peak E Alexy 0.77 m/s CV PACS PA End Max Velocity 1.0 m/s CV PACS PA End Diastolic Pressure 4 mmHg CV PACS PV Acceleration Time 130 ms CV PACS RV Diastolic Basal Dimension 3.4 2.5 - 4.1 cm CV PACS RV S' 11 cm/s CV PACS TAPSE 24 mm CV PACS E/E' Ratio Septal 26 CV PACS E/E' Ratio Averaged 21 CV PACS Relative Wall Thickness ratio 0.35 CV PACS LVOT:AV VTI Index 0.40 CV PACS FS 30 % CV PACS LV Mass 2D 226 g CV PACS LVOT flow 317 mL/s CV PACS AV Velocity Ratio 0.39 CV PACS E/A Ratio 0.9 CV PACS E/E' Ratio Lateral 15 CV PACS BSA 2.02 m2 CV PACS LA Volume Index (BP) 37 mL/m2 CV PACS LVIDD Index 2.85 cm/m2 CV PACS LVIDS Index 2.00 cm/m2 CV PACS LV Mass Index 2D 113(A) 50 - 102 g/m2 CV PACS LVOT Stroke Index 72 mL/m2 CV PACS RA 2D Volume Index 15(A) 18 - 32 mL/m2 CV PACS CHARAN Index (VTI) 0.91 cm2/m2 CV PACS CHARAN Index (Pk Alexy) 0.85 cm2/m2 CV PACS Ascending Aorta Index 1.90 cm/m2 CV PACS Est. RA Pressure 3 mmHg CV PACS Anatomical Region Laterality Modality Ultrasound Narrative 06/13/2024 8:28 AM EST Left ventricle cavity size is normal. Wall thickness is normal. Systolic function is normal with an ejection fraction in the 55-70% range. There are no regional LV wall motion abnormalities Moderate aortic stenosis The ascending aorta is mildly dilated (3.8 cm). Compared to the prior study from 2023, the LV is no longer dilated and the aortic valve gradients are lower most consistent with moderate aortic stenosis; other findings as detailed appear stable Left Ventricle Left ventricle cavity size is normal. Wall thickness is normal. Systolic function is normal with an ejection fraction in the 55-70% range. There are no regional LV wall motion abnormalities. There is Grade II (moderate) diastolic dysfunction. Right Ventricle Right ventricle cavity appears normal. Systolic function is normal. Left Atrium Left atrium cavity is mildly dilated. Right Atrium Right atrium cavity is normal. IVC/SVC Inferior vena cava structure is normal. RA pressures is estimated to be 3 mmHg (IVC diameter <21 mm and decreases >50% during inspiration). Mitral Valve The leaflets are mildly thickened. 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 There is mild annular calcification. There is no significant mitral valve regurgitation. There is no significant stenosis noted. Tricuspid Valve Tricuspid valve structure is normal. There is trace regurgitation. There is no significant tricuspid valve stenosis. Aortic Valve Number of aortic valve cusps cannot be determined. The leaflets are not thickened and exhibit normal excursion. There is mild regurgitation. Pulmonic Valve The pulmonic valve was not well visualized. There is mild pulmonic valve regurgitation. No significant pulmonary valve stenosis noted. Ascending Aorta The ascending aorta is mildly dilated (3.8 cm). Pericardium Pericardium appears normal. There is no pericardial effusion. Study Details Overall the study quality was adequate. us Kiel Trimble MD CV ECHO PROCEDURES Final Resul t * Annual BMP Blood Test (06/21/2022) Annual BMP Blood Test Abstracted Historical Provider HEALTH MAINTENANCE Final Result * Lipid panel (09/14/2020) LDL/HDL Ratio 0 Triglycerides 0 mg/dL Cholesterol 0 mg/dL HDL 0 mg/dL LDL Cholesterol 0 mg/dL Blood Venous blood specimen / Unknown Result [facility] Historical Provider LAB BLOOD ORDERABLES Renee l Result from Last 3 Months or Most Recently Relevant to Health Maintenance Insurance MEDICARE [facility] Care Teams Optical Fabricator Relationship Specialty Start Date End Date Linda Medina MD [address] [place] [address] Dr [facility] [place] [address] PCP - General 12/26/12
--- OUTSIDE RECORDS SUMMARY | 2024-08-28 10:47 | XMS_ITS ---
Author Organization [facility] Address [address] [place] [phone] Care Team Providers Care Ball Thread Machine Tender Name Role Phone Linda Medina MD Primary Care Provider Kiel Chavez [phone] REASON FOR VISIT colon screening, egd screening Encounters Encounter Location Date Provider Diagnosis [facility] [address] [place] [phone] 02/27/2024 Kiel Mesa Plan Of Treatment Next Appt Details Provider Name:Kiel Mesa , 09/23/2024 11:30:00 AM, [address] [place] [address] , [place], [place], [phone], Progress Notes * CHERYL CLAYTON RDOB:[birth year] (74 yo M)Acc No.[id number]:02/27/2024 Progress Notes Patient:?CHERYL CLAYTON Provider:?Kiel Mesa MD :1950???Age:73 Y???Sex:Male Adrian e:02/27/2024 Address[id number] Pcp:Linda Medina MD Subjective: * Chief Complaints: * ???1. Colon screening, egd s creening. * Medical History:? Objective: * Vitals:? Assessment: Plan: * Treatment: * * The named appointment provid er may or may not be the originator of this progress note, and it is not deemed complete until electronically signed by the appointment provider. Sign off status: Pending * Provider:?Kiel Mesa MD Date:? 024 Generated for Roni morgan/Geoff/Lanre on:?08/28/2024 10:47 AM EDT
--- OUTSIDE RECORDS SUMMARY | 2024-08-28 10:47 | XMS_ITS ---
Author Organization [facility] Address [address] [place] [address] Care Team Providers Care Grinding And Spraying Supervisor Name Role Phone Linda Medina MD Primary Care Provider Kiel Chavez [phone] Allergies No Known Allergies REASON FOR VISIT Patient presents today for a colon screening Medications Medication SIG (Take, Route, Frequency, Duration) Notes Start Date End Date Status Aspir-81 81 MG 1 tablet Orally Once a day Active Vitamin D3 1000 UNIT 1 capsule Orally On ce a day Active Folic Acid 400 MCG 1 tablet Orally Once a day Active Omeprazole 20 MG 1 capsule Orally Onc e a day Active Lipitor 80 MG 1 tablet Orally Once a day Active Vitamin B12 Active Praluent 150 MG/ML as directed Subcutaneous as directed SQ Injection--For lipids Active Benicar 20 MG Orally Active Atenolol 50 MG 1 tablet Orally Once a day Active CoQ-10 Active Social History Tobacco Use: Social History Observation Description Date Details (start date - stop date) Former Smoker NA - NA Tobacco Use/Smoking Question Answer Notes Patient is a former smoker How long has it been since you last smoked? > 10 years Section Notes: Nonsmoker > 10 yrs ago; 2-3 beers QD Problems Problem Type SNOMED Code ICD Code Onset Dates Problem Status W/U Status Risk Notes Problem Colon cancer screening (Z12.11) Active confirmed Vital Signs Blood pressure systolic 111 mm Hg 06/17/19 25 Blood pressure diastolic 11 mm Hg 025 Height 69.5 in 06/16/2024 Weight 180 lbs 06/16/2024 BMI 26.2 kg/m2 06/16/2024 Procedures Procedure Date Ordered Date Performed Result Body Sit e UPPER GI ENDOSCOPY 06/16/2024 N/A COLONOSCOPY 06/16/2024 N/A Encounters Encounter Location Date Provider Diagnosis [facility] [address] [place] [address] 06/16/2024 Kiel Mesa Barretts esophagus without dysplasia K22.70 ; Gastroesophageal reflux disease without esophagitis K21.9 and Colon cancer screening Z12.11 Assessments Encounter Date Diagnosis (ICD Code) Assessment Notes Treatment Notes Treatment Clinical Notes Section Notes 06/16/2024 Barretts esophagus without dysplasia (ICD-10 - K22.70) 06/16/2024 Gastroesophageal reflux disease without esophagitis (ICD-10 - K21.9) 06/16/2024 Colon cancer screening (ICD-10 - Z12.11) Plan Of Treatment Pending Test Test Name Order Date UPPER GI ENDOSCOPY 06/16/2024 COLONOSCOPY 06/16/2024 Next Appt Details Follow Up: prn, Reason: Provider Name:Kiel Mesa , 09/23/2024 11:30:00 AM, [address] [place] [address], [phone], Progress Notes * CHERYL CLAYTON RDOB:[birth year] (74 yo M)Acc No.[id number]:06/16/2024 Progress Notes Patient:?CHERYL CLAYTON Provider:?Kiel Mesa MD :1950???Age:74 Y???Sex:Male Adrian e:06/16/2024 Address:[address] [place], [place] [id number] Pcp:Linda Medina MD Subjective: * Chief Complaints: * ???Patient presents today fo r a colon screening * Medical History:? * Surgical History:?Basal cell cancer removed from the left ear appendectomy TUNA and laser surgery for the prostate Toe surgery-bone spur Vasectomy Prostatectomy [place] Cell Carcinoma-left leg and right buttock[facility] * Hospitalization/Major Diagno stic Procedure:?No Hospitalization History. * Family History:?Father: dece ased, diagnosed with Heart disease, HTN (hypertension).?Mother: 92 yrs, diagnosed with Heart disease.?Siblings: , brother / age 68 heart, diagnosed with Heart disease.? He denies any family history of colorectal cancer nor polyps. * Social History:?Tobacco Use:?Tobacco Use/Smoking?Patient is a?former smoker,?How long has it been since you last smoked??> 10 years.?Drugs/Alcohol:?Alcohol Screen?Points: 5, Interpretation: Positive.?Miscellaneous:?Marital status: . 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 ???Nonsmoker > 10 yrs ago; 2-3 beers QD. * Medications:?TakingCoQ-10 Pr aluent 150 MG/ML Solution Auto-injector as directed Subcutaneous as directed , Notes to Pharmacist: SQ Injection--For lipidsVitamin B12 Lipitor 80 MG Tablet 1 tablet Orally Once a day Atenolol 50 MG Tablet 1 tablet Orally Once a day Benicar 20 MG Tablet Orally Omeprazole 20 MG Capsule Delayed Release 1 capsule Orally Once a day Folic Acid 400 MCG Tablet 1 tablet Orally Once a day Vitamin D3 1000 UNIT Capsule 1 capsule Orally Once a day Aspir-81 81 MG Tablet Delayed Release 1 tablet Orally Once a day Taking CoQ-10 Taking Praluent 150 MG/ML Solution Auto-injector as directed Subcutaneous as directed , Notes to Pharmacist: SQ Injection--For lipidsTaking Vitamin B12 Taking Lipitor 80 MG Tablet 1 tablet Orally Once a day Taking Atenolol 50 MG Tablet 1 tablet Orally Once a day Taking Benicar 20 MG Tablet Orally Taking Omeprazole 20 MG Capsule Delayed Release 1 capsule Orally Once a day Taking Folic Acid 400 MCG Tablet 1 tablet Orally Once a day Taking Vitamin D3 1000 UNIT Capsule 1 capsule Orally Once a day Taking Aspir-81 81 MG Tablet Delayed Release 1 tablet Orally Once a day DiscontinuedOmega-3 1000 MG Capsule 1 capsule Orally TID Medication List reviewed and reconciled with the patientDiscontinued Fountain-3 1000 MG Capsule 1 capsule Orally TID Medication List reviewed and reconciled with the patient * Allergies:?N.K.D.A.yes[Aller gies Verified] Objective: * Vitals:?Wt:180lbs, Ht: 69.5 in, BMI:26.2Index, BP:111/11mm Hg, Wt-k.65. Assessment: * Assessment: 1.?Barretts esophagus withou t dysplasia - K22.70 (Primary)???2.?Gastroesophageal reflux disease without esophagitis - K21.9???3.?Colon cancer screening - Z12.11??? Plan: * Treatment: 2.?Gastroesophageal reflux disease without esophagitis?Procedure: UPPER GI ENDOSCOPY* with MACsched for 09/23/24 at 11:30 am 3.?Colon cancer screening?Procedure: COLONOSCOPY* with MACDo not take aspirin on the day of your procedures.We will get a clearance note from Dr. Evans regarding your aortic stenosis * Procedure Codes:?[id number] UPPR GI ENDOSCOPY, [id number] DIAGNOSTIC [id number] COLORECTAL CA SCREEN DOC [id number] TOBACCO [id number] BP SCR NOT PRFRM REC REASON [id number] RCMND FLW-UP 10 YRS DOCD * Preventive Medicine:? ??Counseling:?Care goal follow-up plan:?Above Normal BMI Follow-up?Giving encouragement to exercise,?BMI management provided?Yes.? ??Screenings:?Fall Risk Screening?Fall Risk Assessment:?No falls in the past year,?Screening:?No falls in the past year,?Assessment:?Not performed, no reason specified,?Plan of Care:?Not documented, no reason specified.? * Follow Up:?prn * * Sign off status: Completed true * Provider:?Kiel Mesa MD Date:? 025 Generated for Roni morgan/Geoff/Delontesmitting on:?08/28/2024 10:47 AM EDT
--- OUTSIDE RECORDS SUMMARY | 2024-08-28 10:48 | XMS_ITS | Patient Health Record ---
Author Organization [facility] Address [address] [place] [address] Care Team Providers Care White Washer Piler Name Role Phone Po Linda OSEGUERA Primary Care Provider Kiel Chavez [phone] Allergies No Known Allergies Reason For Referral No Information Medications Medication SIG (Take, Route, Frequency, Duration) Notes Start Date End Date Status Lipitor 80 MG 1 tablet Orally Once a day Active Vitamin B12 Active Praluent 150 MG/ML as directed Subcutaneous as directed SQ Injection--For lipids Active CoQ-10 Active Aspir-81 81 MG 1 tablet Orally Once a day Active Vitamin D3 1000 UNIT 1 capsule Orally On ce a day Active Folic Acid 400 MCG 1 tablet Orally Once a day Active Omeprazole 20 MG 1 capsule Orally Onc e a day Active Benicar 20 MG Orally Active Atenolol 50 MG 1 tablet Orally Once a day Active Immunizations Vaccine Route Administration Date Status Comme nts Influenza Unknown 12/15/2019 Administered Social History Tobacco Use: Social History Observation Description Date Details (start date - stop date) Former Smoker NA - NA Tobacco Use/Smoking Question Answer Notes Patient is a former smoker How long has it been since you last smoked? > 10 years Section Notes: Nonsmoker > 10 yrs ago; 3 be ers QD Nonsmoker > 10 yrs ago; 2-3 beers QD Nonsmoker > 10 yrs ago; 2-3 beers QD Nonsmoker > 10 yrs ago; 2-3 beers QD Problems Problem Type SNOMED Code ICD Code Onset Dates Problem Status W/U Status Risk Notes Problem Colon cancer screening (971860738) Colon cancer screening (Z12.11) Active confirmed Problem 237484102 Gastroesophageal reflux disease without esophagitis (K21.9) Active confirmed Problem 777910283 Barretts esophag us without dysplasia (K22.70) Active confirmed Problem Kruse's esophagus (048329193) Kruse''s esophagus without dysplasia (K22.70) Active confirmed Vital Signs Blood pressure diastolic 11 mm Hg 06/16/2024 Height 69.5 in 06/16/2024 Blood pressure systolic 111 mm Hg 06/16/2024 Weight 180 lbs 06/16/2024 BMI 26.2 kg/m2 06/16/2024 Procedures Procedure Date Ordered Date Performed Result Body Sit e UPPER GI ENDOSCOPY 06/16/2024 N/A COLONOSCOPY 06/16/2024 N/A Encounters Encounter Location Date Provider Diagnosis [facility] [address] [place] [address] 06/16/2024 Kiel Mesa Barretts esophagus without dysplasia K22.70 ; Gastroesophageal reflux disease without esophagitis K21.9 and Colon cancer screening Z12.11 Assessments Encounter Date Diagnosis (ICD Code) Assessment Notes Treatment Notes Treatment Clinical Notes Section Notes 06/16/2024 Gastroesophageal reflux disease without esophagitis (ICD-10 - K21.9) 06/16/2024 Barretts esophagus without dysplasia (ICD-10 - K22.70) 06/16/2024 Colon cancer screening (ICD-10 - Z12.11) Plan Of Treatment Pending Test Test Name Order Date UPPER GI ENDOSCOPY 06/16/2024 COLONOSCOPY 06/16/2024 Future Test Test Name Order Date UPPER GI ENDOSCOPY 09/24/2013 COLONOSCOPY 09/24/2013 UPPER GI ENDOSCOPY 03/26/2017 UPPER GI ENDOSCOPY 10/25/2020 Next Appt Details Provider Name:Kiel Mesa , 09/23/2024 11:30:00 AM, [address] , [place], [place], [id number], Insurance Providers Payer Name Payer Address Payer Phone Subscriber Number Group Number Insured Name Patient Relationship to Insured Coverage Start Date Coverage End Date MEDICARE [place] [address] [place] [address] [id number] CHERYL CLAYTON Self - patient is the insured 7 MEDEX ATTN CLAIMS [address] [place] [address] [phone] [id number] CHERYL CLAYTON Self - patient is the insured Medical (General) History Medical History History ICD Code Colonoscopy 03-02-2004--only hyperplasti c polyps HTN MO in 1993 with subsequent a ngioplasty---history of angina--Dr. Evans at [facility]--ETT was OK--no cath since 1993 Hyperlipidemia Denies DM,CVA,renal disease, asthma Asbestosis seen on CXR--but no symptoms GERD--UGI in 2009 with a HH- -EGD in 12/2013--small to mod-sized HH with small areas of Kruse's--no dysplasia, no esophagitis; benign gastric polyps Neg. screening colonoscopy i n 12/2013 except for diverticulosis and internal hemorrhoids EGD in 04/2017 with the small area of Kruse's and biopsies negative for dysplasia Aortic stenosis followed by Echo's with Dr. 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
--- NOTE | 2025-02-22 09:22 | HO.ANESPROP2 ---
Documented by User: Lilli Harris NP 02/23/25 09:03 HPI - Anesthesia Eval Consult details Narrative: 74yo M for Upper Endoscopy and Colonoscopy Cardiac optimized for procedure. Follows [facility] for CAD s/p CABG x 3 + MAZE 09/2024 (STEMI 1994 with stent), afib (eliquis), Aortic stenosis (moderate by ECHO 06/2024, CHARAN = 1.1). 02/22/25 office visit unavailable (draft), but letter states optimized. Stable at 09/2024 office visit ? 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 (Acute) BPH (benign prostatic hyperplasia) (Acute) Hypercholesterolemia (Acute) Barretts esophagus (Acute) CAD (coronary artery disease) (Acute) GERD (gastroesophageal reflux disease) (Acute) Hypertension (Acute) Past Medical History Medical History Hx of asbestosis Hx of Vienna cell carcinoma (2021) Aortic stenosis COVID-19 virus infection Sebaceous cyst Medicare annual wellness visit, initial PFO (patent foramen ovale) Insomnia Scoliosis Arthritis Cancer, skin, squamous cell BPH (benign prostatic hyperplasia) 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 History of herpes genitalis Impaired glucose tolerance Hypercholesterolemia Ascending aorta dilatation Moderate aortic stenosis Barretts esophagus CAD (coronary artery disease) Overweight (BMI 25.0-29.9) History of asbestos exposure GERD (gastroesophageal reflux disease) Hypertension Family History Family History Father Hypertension CVD (cardiovascular disease) Mother Diabetes Past heart attack Surgical History Surgical History 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) Hx of squamous cell carcinoma excision Hx of colonoscopy History of esophagogastroduodenoscopy (EGD) (04/2017) History of prostate surgery History of vasectomy History of appendectomy Social History Social History Household Members: Spouse Housing: House Do you presently have visiting nurse or other home services: No Alcohol intake: current Alcohol intake frequency: 3 or more drinks per day Alcohol type: beer Comment: 2 beers Qd Patient Tobacco Use Status: Former Tobacco user Tobacco use type: Cigarette Years Smoked: 25 years ago Smoked in Last 30 Days: No e-Cigarette/Vaping Use: Never Used Second Hand Smoke Exposure: No Use of substances other than those prescribed or required for medical reasons: No Are you DNR?: No Advance Directives: No (will bring dos) Advance Directives Information Provided: Yes Advance Directives on File: No Current occupational status: retired Cognitive needs: No Hearing needs: No Vision needs: Yes Meds Allergies Allergy/AdvReac Type Severity Reaction Status Date / Time simvastatin Allergy Unknown Unknown Verified 01/26/25 10:45 Home Medications ?Medication ?Instructions ?Recorded ?Confirmed ?Last Taken ?Type aspirin 81 mg tablet,delayed 81 mg PO DAILY@1700 02/16/20 02/22/25 08/30/24 History release (Adult Aspirin Regimen) cholecalciferol (vitamin D3) 25 25 mcg PO DAILY@1200 02/16/20 02/22/25 08/30/24 History mcg (1,000 unit) capsule folic acid 400 mcg tablet 0.4 mg PO DAILY@1200 02/16/20 02/22/25 08/30/24 History cyanocobalamin (vitamin B-12) 1,000 mcg sublingual Q48H 11/03/20 02/22/25 08/31/24 History 1,000 mcg sublingual tablet cbd oil 02/16/21 09/28/24 Unknown History EMU oil 1 appl topical DAILY 03/30/24 02/22/25 08/30/24 History Cbd Oil 50 mg PO DAILY 08/31/24 02/22/25 08/30/24 History cetirizine 10 mg tablet (Zyrtec) 10 mg PO Q48H 08/31/24 02/22/25 08/31/24 History coenzyme Q10 100 mg capsule 100 mg PO DAILY 08/31/24 02/22/25 08/30/24 History (CoQ-10) evolocumab 140 mg/mL subcutaneous 140 mg subcut Q2W 08/31/24 02/22/2525 History pen injector (Darren Thompson) omeprazole 20 mg tablet,delayed 20 mg PO DAILY 08/31/24 02/24/25 02/24/25 History release acetaminophen 500 mg tablet 1,000 mg PO Q6H PRN Pain 09/28/24 02/22/25 Unknown History apixaban 5 mg tablet (Eliquis) 5 mg PO BID 09/28/24 02/22/25 02/15/25 History Exam Pertinent Lab Results Pertinent Lab Results: Laboratory Tests 10/09/24 09:22 WBC 6.9 Hgb 12.0 L Hct 37.4 L Plt Count 216 D Sodium 136 Potassium 4.8 Chloride 105 Carbon Dioxide 24 BUN 16 Creatinine 1.01 Narrative Narrative: EKG 09/2024 ECG Interpretation Normal sinus rhythm T wave abnormality, consider inferior ischemia Abnormal ECG No previous ECGs available Confirmed by JN RINALDI ([id number]) on 11/06/2024 11:08:30 AM ECHO 09/2024 Left ventricle cavity size is normal. There is mild concentric hypertrophy. Systolic function is mildly decreased with an ejection fraction of 40-45%. Mild global LV hypokinesis is present. Moderate aortic stenosis: The aortic valve is trileaflet. The leaflets are moderately thickened and exhibit moderately reduced excursion. There is mild regurgitation. There is moderate stenosis with a mean gradient of 20 mmHg through the valve. 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 History of herpes genitalis Impaired glucose tolerance Hypercholesterolemia Ascending aorta dilatation Moderate aortic stenosis Barretts esophagus CAD (coronary artery disease) Overweight (BMI 25.0-29.9) History of asbestos exposure GERD (gastroesophageal reflux disease) Hypertension Cognitive capacity: normal Functional capacity: independent ambulation Family History Family History Father Hypertension CVD (cardiovascular disease) Mother Diabetes Past heart attack Family history of problems with anesthesia: No Surgical History Surgical History 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) Hx of squamous cell carcinoma excision Hx of colonoscopy History of esophagogastroduodenoscopy (EGD) (04/2017) History of prostate surgery History of vasectomy History of appendectomy History of Problems with Anesthesia: No Social History Social History Household Members: Spouse Housing: House Do you presently have visiting nurse or other home services: No Alcohol intake: current Alcohol intake frequency: 3 or more drinks per day Alcohol type: beer Comment: 2 beers Qd Patient Tobacco Use Status: Former Tobacco user Tobacco use type: Cigarette Years Smoked: 25 years ago Smoked in Last 30 Days: No e-Cigarette/Vaping Use: Never Used Second Hand Smoke Exposure: No Use of substances other than those prescribed or required for medical reasons: No Are you DNR?: No Advance Directives: No (will bring dos) Advance Directives Information Provided: Yes Advance Directives on File: No Current occupational status: retired Cognitive needs: No Hearing needs: No Vision needs: Yes Meds Allergies Allergy/AdvReac Type Severity Reaction Status Date / Time simvastatin Allergy Unknown Unknown Verified 01/26/25 10:45 Home Medications ?Medication ?Instructions ?Recorded ?Confirmed ?Last Taken ?Type aspirin 81 mg tablet,delayed 81 mg PO DAILY@1700 02/16/20 02/22/25 08/30/24 History release (Adult Aspirin Regimen) cholecalciferol (vitamin D3) 25 25 mcg PO DAILY@1200 02/16/20 02/22/25 08/30/24 History mcg (1,000 unit) capsule folic acid 400 mcg tablet 0.4 mg PO DAILY@1200 02/16/20 02/22/25 08/30/24 History cyanocobalamin (vitamin B-12) 1,000 mcg sublingual Q48H 11/03/20 02/22/25 08/31/24 History 1,000 mcg sublingual tablet cbd oil 02/16/21 09/28/24 Unknown History EMU oil 1 appl topical DAILY 03/30/24 02/22/25 08/30/24 History Cbd Oil 50 mg PO DAILY 08/31/24 02/22/25 08/30/24 History cetirizine 10 mg tablet (Zyrtec) 10 mg PO Q48H 08/31/24 02/22/25 08/31/24 History coenzyme Q10 100 mg capsule 100 mg PO DAILY 08/31/24 02/22/25 08/30/24 History (CoQ-10) evolocumab 140 mg/mL subcutaneous 140 mg subcut Q2W 08/31/24 02/22/25 08/24/24 History pen injector (Darren Thompson) omeprazole 20 mg tablet,delayed 20 mg PO DAILY 08/31/24 02/24/25 02/24/25 History release acetaminophen 500 mg tablet 1,000 mg PO Q6H PRN Pain 09/28/24 02/22/25 Unknown History apixaban 5 mg tablet (Eliquis) 5 mg PO BID 09/28/24 02/22/25 02/15/25 History Exam Exam Date and Time: 02/24/2025 Airway Mallampati Class: II TM Dist: >3cm Neck ROM: Full Heart: normal Lungs: normal Other: normal Assessment and Plan Assessment Anesthesia Assessment: Anesthesia Plan Discussed Final Anesthetic Review Family History of Problems with Anesthesia: No History of Problems with Anesthesia: No NPO: Yes ASA Class: II and III Final Preanesthetic Review: No Changes in Pt Med Stat, Meds/Allgs Chart Reviewed, Consent Obtained/Reviewed and Anes Risks/Benef Reviewed Patient Risk: Intermediate Procedure Risk: Low Anesthetic Plan Anesthetic Plan: MAC: Disposition: Standard PACU
[2025-02-22 12:13] VITALS: BMI 25.8
[2025-02-24 06:49] VITALS: BMI 26.0
[2025-02-24] MEDS: Lactated Ringers 1,000 ML 100 ML IVCONT (07:03)
[2025-02-24 07:04] VITALS: BP 144/69; PULSE 58; RESP 16; TEMP 36.4; O2SAT 100
[2025-02-24 08:48] VITALS: BP 100/52; PULSE 65; RESP 16; TEMP 37.1; O2SAT 98
--- NOTE | 2025-02-24 08:58 | P.BOP_ITS ---
Brief Operative Note Date of Service: 02/24/25 Pre-op diagnosis: Kruse's, Screening Post-op diagnosis: other (Same, Hiatal hernia, Polyps) Procedure: EGD with biopsies, Colonoscopy to cecum with cold snare polypectomy x 2 with placement of 1 Resolution clip on each site Surgeon: Kiel Mesa MD Anesthesia: MAC Was an Instructor Private used for this Procedure?: No Estimated blood loss (mL): 2.0 Pathology: other (A. Esophagus 38 to 39cm B. Polyps at 20cm) Condition: stable Disposition: PACU
[2025-02-24 09:03] VITALS: BP 105/55; PULSE 42; RESP 16; O2SAT 98
[2025-02-24 09:18] VITALS: BP 106/53; PULSE 44; RESP 16; TEMP 36.3; O2SAT 98
--- NOTE | 2025-02-24 09:57 | OP_ITS ---
DATE OF SERVICE: 02/24/2025 SURGEON: Kiel Mesa MD INDICATIONS: The patient presents for evaluation of Kruse's esophagus and colorectal cancer screening. Full consent has been obtained from him for this, including risks of bleeding and perforation. PREOPERATIVE DIAGNOSIS: POSTOPERATIVE DIAGNOSIS: PROCEDURE PERFORMED: Esophagogastroduodenoscopy with biopsies, and colonoscopy to the cecum with cold snare polypectomy x 2 with placement of 1 resolution clip on each polypectomy site. ESTIMATED BLOOD LOSS: COMPLICATIONS: ANESTHESIA: Medication used, monitored anesthesia care. ASSISTANTS: SPECIMENS: PREOPERATIVE DIAGNOSES: Kruse's esophagus and colorectal cancer screening. POSTOPERATIVE DIAGNOSES: Kruse's esophagus and colorectal cancer screening, hiatal hernia, colon polyps, diverticulosis, and internal hemorrhoids. DESCRIPTION OF PROCEDURE: The patient was placed in the left lateral decubitus position. The Olympus video gastroscope was passed in the posterior oropharynx and upper esophagus under direct vision. The scope was passed slowly to the distal esophagus. The gastroesophageal junction appeared at 39 cm. Extending from this to 38 cm were short areas of Kruse's- appearing mucosa. This was not circumferential. There was no overlying esophagitis nor any lesions. The scope entered the stomach. There was a small hiatal hernia. The scope was advanced to the pylorus and the duodenum was cannulated to the descending portion. The duodenum including the bulb appeared normal without mass or ulceration. The scope was withdrawn back in the stomach. The gastric antrum and body appeared normal with good peristalsis. The scope was retroflexed visualizing the proximal stomach carefully, which appeared normal, without any sign of mass or ulceration. The scope was straightened and withdrawn back into the esophagus. Multiple biopsies were obtained between 38 and 39 cm. A specimen was sent to the [facility] study as well. Proximal to 38 cm, the esophageal mucosa appeared normal. The scope was withdrawn from the patient. He was turned around for the colonoscopy. The digital rectal exam revealed no abnormalities. The Olympus video pediatric colonoscope was entered into the rectum and advanced easily to the cecum. Once in the cecum, I did identify normal-appearing cecal pouch with appendiceal orifice and a normal-appearing ileocecal valve. There was transillumination of light deep in the right lower quadrant. The scope was slowly withdrawn assessing all mucosal surfaces carefully. Preparation was excellent. At 20 cm there were 2 approximately 5 mm grossly adenomatous polyps, which were both removed by cold snare polypectomy and recovered by suction. Both polypectomy sites appeared clean, without any sign of residual polyp nor significant bleeding. A single resolution clip was put on each polypectomy site with good deployment and good hemostasis. I did not visualize any other polyps, colitis, nor angiodysplasia. There was a mild amount of sigmoid diverticulosis. In the rectum, scope was retroflexed visualizing small internal hemorrhoids, but no other pathology. The rectal mucosa appeared normal. The scope was straightened and withdrawn from the patient. He tolerated both procedures well and was returned to recovery area in stable condition. IMPRESSION: 1. Colon polyps. 2. Diverticulosis. 3. Internal hemorrhoids. 4. 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 5. Hiatal hernia. PLAN: The results of the pathology will be checked. I would recommend a repeat upper endoscopy in 3 years for further surveillance as long as the Kruse's esophagus biopsies from today do not show any dysplasia. He was advised to continue his omeprazole. Assuming the colon polyps are adenomatous, I would recommend a followup colonoscopy in 5 years as well. He was advised to resume his aspirin tomorrow and to resume his Eliquis tomorrow as well. He will otherwise be seen in followup as needed. MD LYNN Dan/JUAN CARLOS / [id number] MTDD
== END 2025-02-24 09:53 | disposition home or self-care (01) ==
PROVIDERS: PCP Internal Medicine; Visit Provider Internal Medicine
PROC: (CPT 45385; principal; 2025-02-24 07:30)
DX: Z12.11 Encounter for screening for malignant neoplasm of colon (principal); K21.00 Gastro-esophageal reflux disease with esophagitis, without bleeding; K22.70 Barrett's esophagus without dysplasia; K64.8 Other hemorrhoids; K44.9 Diaphragmatic hernia without obstruction or gangrene; K57.30 Diverticulosis of large intestine without perforation or abscess without bleeding; D12.5 Benign neoplasm of sigmoid colon
CPT/HCPCS: 45385; 43239; 88305; J2003; J2704; J3010

== ENCOUNTER 2025-03-24 09:18 | Outpatient (REF) | payer MEDICARE, SELFPAY ==
[2025-03-24 10:44] LABS: MANUAL DIFF FLAG NO
[2025-03-24 10:45] LABS: Hematocrit 44.6 % (42.0-52.0); Hemoglobin 14.6 g/dl (14.0-18.0); Imm Gran Abs Auto 0.01 X10*3/uL (0.00-0.03); Imm Gran Pct Auto 0.2 % (0.0-0.4); Lymphocytes Absolute Auto 0.9 X10*3/uL (1.2-4.9); Mean Corpuscular HGB Conc 32.7 g/dl (31.0-36.0); Mean Corpuscular Hemoglobin 30.0 pg (27.0-33.0); Mean Corpuscular Volume 91.6 fL (80.0-98.0); NRBC Abs Auto 0.000 X10*3/uL (0.0-0.012); NRBC Pct Auto 0.0 /100WBC (0.0-0.2); Platelet Count 143 X10*3/uL (160-400); Red Blood Count 4.87 X10*6/uL (4.60-5.80); Reticulocytes Absolute 0.060 X10*6/uL (0.026-0.095); White Blood Count 5.0 X10*3/uL (4.8-10.8)
[2025-03-24 11:00] LABS: Appearance Urine Clear; Glucose Urine UA Negative (Negative); PH 6.5 (5.0-9.0); Specific Gravity - Urine 1.015 (1.005-1.025)
[2025-03-24 11:12] LABS: Alanine Aminotransferase 16 U/L (0-40); Albumin Level 4.3 g/dL (3.5-5.0); Alkaline Phosphatase 70 U/L (39-117); Anion Gap 10 (12-20); Aspartate Amino Transferase 22 U/L (5-37); Blood Urea Nitrogen 16 mg/dL (9-16); Calcium 9.2 mg/dL (8.4-10.2); Carbon Dioxide 29 mmol/L (22-29); Chloride 105 mmol/L (96-108); Cholesterol 163 mg/dL (<200); Estimated Glomerular Filt Rate > 60; HDL Cholesterol 72 mg/dL (>40); Magnesium 2.0 mg/dL (1.6-2.6); Potassium 4.5 mmol/L (3.3-5.1); Sodium 139 mmol/L (135-145); Total Protein 7.0 g/dL (6.5-8.0); Triglycerides 64 mg/dL (<150)
[2025-03-24 11:33] LABS: Folate 13.5 ng/mL (> or = 4.0); Vitamin B12 371 pg/mL (200-900)
[2025-03-24 11:34] LABS: Ferritin 77 ng/mL (20-250); Free T4 (Free Thyroxine) 0.82 ng/dL (0.71-1.85); Thyroid Stimulating Hormone 2.40 uIU/mL (0.32-4.0)
== END 2025-03-24 09:19 | disposition home or self-care (01) ==
LOC: HO.10HDL 09:18
PROVIDERS: Visit Provider Internal Medicine
DX: R30.0 Dysuria (principal); D64.9 Anemia, unspecified; E78.00 Pure hypercholesterolemia, unspecified; Z12.5 Encounter for screening for malignant neoplasm of prostate; Z13.1 Encounter for screening for diabetes mellitus
CPT/HCPCS: 36415; 80053; 80061; 81003; 82607; 82728; 82746; 83036; 83735; 84153; 84439; 84443; 85025; 85045

== ENCOUNTER 2025-04-01 10:14 | Outpatient (AMB) | payer MEDICARE, SELFPAY ==
--- OUTSIDE RECORDS SUMMARY | 2024-02-27 05:20 | XMS_ITS ---
Author Organization [facility] Address [address] [place] [address] Care Team Providers Care Automobile Locator Name Role Phone Linda Medina MD Primary Care Provider Kiel Chavez [phone] REASON FOR VISIT colon screening, egd screening Encounters Encounter Location Date Provider Diagnosis [facility] [address] [place] [address] 02/27/2024 Kiel Mesa Plan Of Treatment No Information Progress Notes * CHERYL CLAYTON RDOB:[birth year] (75 yo M)Acc No.[id number]:02/27/2024 Progress Notes Patient: CHERYL PAINTING Provider: Stephanie Mesa MD :1950 A ge:73 Y S ex:Male Date:02/27/2024 Address:[address] [id number] Pcp:Linda Medina MD Subjective: * Chief Complaints: * C olon screening, egd screening * The named appointment provid er may or may not be the originator of this progress note, and it is not deemed complete until electronically signed by the appointment provider. Sign off status: Pending * Provider: Stephanie Mesa MD Date: 04/28/2023 Generated for Kevini ng/Faxing/eTransmitting on: 06/02/2024 12:38 PM EST
--- OUTSIDE RECORDS SUMMARY | 2025-02-24 02:30 | XMS_ITS ---
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 ; Hiatal hernia K44.9 ; Colon cancer screening Z12.11 and Polyp of colon K63.5 Assessments Encounter Date Diagnosis (ICD Code) Assessment Notes Treatment Notes Treatment Clinical Notes Section Notes 02/24/2025 Ballard esophagus (ICD-10 - K22.70) 02/24/2025 Hiatal hernia (ICD-10 - K44.9) 02/24/2025 Colon cancer screening (ICD-10 - Z12.11) 02/24/2025 Polyp of colon (ICD-10 - K63.5) Plan Of Treatment Next Appt Details Follow Up: 5 YEAR RECALL FEB 2030, Reason: Progress Notes * CHERYL CLAYTON RDOB:[birth year] (75 yo M)Acc No.[id number]:02/24/2025 EGD and COL/MAC Patient: CHERYL PAINTING Provider: Stephanie Mesa MD :1950 A ge:74 Y S ex:Male Date:02/24/2025 Address:[address] [place], [phone] Pcp:Linda Medina MD Subjective: * Chief Complaints: * B arrett's,gerd,screening Assessment: * Assessment: 1. B arrett esophagus - K22.70 (Primary) 2 . H iatal hernia - K44.9 ? 3 . C olon cancer screening - Z12.11 4 . P olyp of colon - K63.5? Plan: * Procedure Codes: 4 3239 UPPER GI ENDOSCOPY, [id number] COLONOSCOPY/CONTROL [id number] LESION REMOVAL [id number] INTRVL 3+YRS PTS CLNSCP [id number] RCMND FLW-UP 10 YRS DOCD * Follow Up: 5 YEAR RECALL FEB 2030 Billing Information: * Procedure Codes: 43640 UPPER GI ENDOSCOPY, BIOPSY. 72751 COLONOSCOPY/CONTROL BLEEDING. 19566 LESION REMOVAL COLONOSCOPY. 0529F INTRVL 3+YRS PTS CLNSCP DOCD. 0528F RCMND FLW-UP 10 YRS DOCD. * The named appointment provid er may or may not be the originator of this progress note, and it is not deemed complete until electronically signed by the appointment provider. Sign off status: Pending * Provider: Stephanie Mesa MD Date: 04/26/2024 Generated for Roni morgan/Geoff/Jonyitting on: 06/02/2024 12:38 PM EST
--- NOTE | 2025-04-01 10:32 | A.OFFVIS_ITS ---
Intake Vital Signs 3 04/01/25 10:33 Height 5 ft 9 in Weight 182 lb 4 oz BMI 26.9 BP 132/70 Blood Pressure Location Lt brachial Position Sitting Pulse 61 Pulse Source Pulse Oximeter Temp 97.1 F Temp Source Temporal Artery Scan Pulse Oximetry (%) 97 Oxygen Delivery Method Room Air Intake Visit Reasons: AWV Intake Note: Patient is here for an Annual Wellness Visit. Special Investigator Required: No Product Development Coordinator: Product Development Coordinator offered & declined Accompanied by: Self / Same As Patient Allergies simvastatin Allergy (Unknown, Verified 04/01/25 10:33) Unknown Medication List - Last Reconciled 04/01/25 by Linda Medina MD acetaminophen 1,000 mg PO Q6H PRN apixaban (Eliquis) 5 mg PO BID aspirin (Adult Aspirin Regimen) 81 mg PO DAILY@1700 atorvastatin (Lipitor) 80 mg PO BEDTIME [Cbd Oil 50 mg PO DAILY] [cbd oil ] cetirizine (Zyrtec) 10 mg PO Q48H cholecalciferol (vitamin D3) 25 mcg PO DAILY@1200 coenzyme Q10 (CoQ-10) 100 mg PO DAILY cyanocobalamin (vitamin B-12) 1,000 mcg sublingual Q48H [EMU oil 1 appl topical DAILY] evolocumab (Repatha SureClick) 140 mg subcut Q2W folic acid 0.4 mg PO DAILY@1200 metoprolol succinate ER 25 mg PO DAILY omeprazole 20 mg PO DAILY HPI AWV 2 HPI0 Details [place] of care Dr. [facility]a gastroenterology [facility], [facility], [facility] [place], Dr. López surgery, Dr. Carballo rheumatology HPI Comments 2 History of Present Illness0 Details History of Present Illness The patient is a 75-year-old male presenting for an annual wellness visit. He has a history of hypertension, coronary artery disease, GERD with Kruse's esophagus, hypercholesterolemia, BPH, and atrial fibrillation. He has a history of moderate aortic stenosis, with his last echocardiogram performed in May 2024. 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 For his gastrointestinal history, he has been seen by gastroenterology and had a colonoscopy in February 2025 which revealed a tubular adenoma. He has been advised to have a repeat upper endoscopy in three years and a repeat colonoscopy in five years. Recent blood work from March 24 revealed a normal blood count with mild thrombocytopenia, normal electrolytes, renal function, blood sugar, and a normal hemoglobin A1c. His liver function was fine, with an LDL of 79 and triglycerides of 64. His PSA, vitamin B12, folic acid, and thyroid levels were all within normal limits, and a urine test was negative. Health Maintenance - Last seen in January 2025 for an [facility] visit. - Last echocardiogram in May 2024 f or moderate aortic stenosis. - Colonoscopy performed in February 2025 . - Follow-up colonoscopy recommended in 5 years due to a tubular adenoma. - Follow-up upper endoscopy recommended in 3 years for Kruse's esophagus. - Receives care from multiple specialist s including gastroenterology, cardiology, urology, dermatology, surgery, and rheumatology. Social History Results - Blood work (March 24): Revealed a normal blood count with mild thrombocytopenia, normal electrolytes, normal renal function, normal blood sugar, and a normal hemoglobin A1c. - Liver function tests (March 24): Normal. - Lipid panel (March 24): LDL of 79 mg/dL and triglycerides of 64 mg/dL. - Other labs (March 24): PSA, vitam in B12, folic acid, and thyroid function tests were all within normal limits. - Urinalysis: Negative. - Colonoscopy (February 2025): Revealed a tubular adenoma. - Echocardiogram (May 2024): Showed moderate aortic stenosis. 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 History of herpes genitalis Impaired glucose tolerance Hypercholesterolemia Ascending aorta dilatation Moderate aortic stenosis Barretts esophagus CAD (coronary artery disease) Overweight (BMI 25.0-29.9) History of asbestos exposure GERD (gastroesophageal reflux disease) Hypertension Surgical History 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) Hx of squamous cell carcinoma excision Hx of colonoscopy History of esophagogastroduodenoscopy (EGD) (04/2017) History of prostate surgery History of vasectomy History of appendectomy Family History Father Hypertension CVD (cardiovascular disease) Mother Diabetes Past heart attack Social History Household Members: Spouse Housing: House Are you a primary child caregiver to a significant other at home: No Do you presently have visiting nurse or other home services: No Alcohol intake: current Alcohol intake frequency: 3 or more drinks per day Alcohol type: beer Comment: 2 beers Qd Patient Tobacco Use Status: Former Tobacco user Tobacco use type: Cigarette Years Smoked: 25 years ago e-Cigarette/Vaping Use: Never Used Second Hand Smoke Exposure: No Current occupational status: retired Cognitive needs: No Hearing needs: No Vision needs: Yes Questionnaire Medicare Wellness Checkup [age] What gender do you identify with?: male During the past 4 weeks, how much have you been bothered by emotional problems such as feeling anxious, depressed, irritable, sad or downhearted, and blue?: n ot at all During the past 4 weeks, has your physical & emotional health limited your social activities with family, friends, neighbors, or groups?: not at all During the past 4 weeks, how much bodily pain have you generally had?: very mild pain During the past 4 weeks, was someone available to help you if you needed & wanted help?: yes, as much as I wanted During the past 4 weeks, what was the hardest physical activity you could do for at least 2 minutes?: heavy Can you get to places out of walking distance without help? (For eg., can you travel alone on buses, taxis or drive your car?): Yes Can you go shopping for groceries or clothes without someone's help?: Yes Can you prepare your own meals?: Yes Can you do your housework without help?: Yes Because of any health problems, do you need the help of another person with your personal care needs such as eating, bathing, dressing or getting around the house?: No Can you handle your own money without help?: Yes During the past 4 weeks, how would you rate your health in general?: good During the past 4 weeks how have things been going for you?: pretty well Are you having difficulties driving your car?: no Do you always fasten your seat belt when you are in a car?: yes, usually During past 4 weeks, have you been bothered by the following: never: Falling or dizzy when standing up, Trouble eating well?, Teeth or denture problems? and Problems using the telephone? and seldom: Sexual problems? and Tiredness or fatigue? Have you fallen 2 or more times in the past year?: No Are you afraid of falling?: No Are you a smoker?: no During the past 4 weeks, how many drinks of wine, beer, or other alcoholic beverages did you have?: 10 or more per week Do you exercise for about 20 minutes 3 or more times a week?: yes, all the time Have you been given information to help with the following?: no: Hazards in your house that might hurt you? and no: Keeping track of your medications? How often do you have trouble taking medicines the way you have been told to take them?: I always take medicine as prescribed How confident are you that you can control & manage most of your health problems?: very confident What is your race?: White PHQ-9 Over the last 2 weeks, how often have you been bothered by any of the following problems? 1. Little interest or pleasure in doing things: not at all 2. Feeling down, depressed, or hopeless: not at all 3. Trouble falling or staying asleep, or sleeping too much: not at all 4. Feeling tired or having little energy: not at all 5. Poor appetite or overeating: not at all 6. Feeling bad about yourself - or that you are a failure or have let yourself or your family down: not at all 7. Trouble concentrating on things, such as reading the newspaper or watching television: not at all 8. Moving or speaking so slowly that other people could have noticed. Or the opposite - being so fidgety or restless that you have been moving around a lot more than usual: not at all 9. Thoughts that you would be better off or of hurting yourself in some way: not at all Total score: 0 Depression Screening Interpretation: Negative Depression Screening Done: Yes 90302 - PHQ-9 Billing: Yes Source: Developed by Drs. Kiel Webb, Rohini Yu, Wily Rudolph and colleagues, with an educational mike from [employer]. Thrive Questionnaire Date Thrive assessed: 09/24/24 I am a: Patient What is your living situation today?: I have a steady place to live Within the past 12 months, did the food you bought not last and you didn't have the money to get more?: Never true Within the past 12 months, did you worry whether your food would run out before you got money to buy more?: Never true Do you have trouble paying for medicines?: No Do you have trouble getting transportation to medical appointments?: No Do you have trouble paying your heating and electricity bill?: No Do you have trouble taking care of your child, family member or friend?: No Do you have trouble with day-to-day activities such as bathing, preparing meals, shopping, managing finances, etc.?: No Are you currently unemployed and looking for a job?: No Are you interested in more education?: No Please select the resources that you would like help with: None Currently or been in a relationship where the following occur: No concerns reported THRIVE Score: 0 FAIZA-7 AMB Questionnaire FAIZA-7 Date FAIZA - 7 assessed: 09/28/24 Source: Developed by Drs. Kiel Webb, Rohini Yu, Wily Rudolph and colleagues, with an educational mike from [employer]. Review of Systems Narrative Review of Systems Const Denies poor appetite and Denies weakness Eyes Denies no additional complaints ENT Reports Normal hearing present, Denies dizziness, Denies nasal congestion, Denies tinnitus and Denies sore throat Card Denies chest pain, Denies syncope, Denies rapid heart rate and Denies dyspnea Resp Denies cough and Denies dyspnea GI Denies change in stool character, Reports constipation, Denies diarrhea, Denies nausea and Denies vomiting Denies dysuria and Denies urinary frequency Neuro Reports Normal hearing present, Denies confusion, Denies dizziness, Denies syncope and Denies weakness Psych Denies confusion Physical Exam Exam Exam: Physical Exam General: Cooperative, healthy appearing, comfortable, no acute distress and well developed Orientation: Patient oriented x3 Limitations: No limitations Head: Normal to inspection Ears: Hearing grossly normal bilaterally Nose: Normal external nose present Face and sinus: Normal facial exam Eyes: Appearance normal, both eyes and all related structures Neck: Normal visual inspection and Yes full ROM Respiratory: Normal respiratory effort and able to speak in complete sentences. Clear to auscultation bilaterally Cardiovascular: Regular rate and rhythm. Normal S1 and S2 GI: Normal to inspection. Soft to palpation and nontender Skin: No rashes or lesions noted Neuro: Patient oriented x3 Extremities: Normal to inspection Vital Signs: Last Vital Signs Temp 97.1 F 04/01/25 10:33 Pulse 61 04/01/25 10:33 BP 132/70 04/01/25 10:33 Pulse Ox 97 04/01/25 10:33 Oxygen Delivery Method Room Air 04/01/25 10:33 BMI result Body Mass Index 26.9 Const General: No confusion Orientation/consciousness: No confusion HEENT Head: Yes normocephalic Ears: external ears normal and TM's normal bilaterally Face and sinus: Yes normal facial exam Mouth: moist mucous membranes Throat: Yes tonsils normal Eyes Conjunctivae: conjunctivae normal Pupils: Equal, round and reactive pupils present and Pupil accommodation reflex normal Direct Ophthalmoscopy: normal light reflex Neck Neck: No lymphadenopathy Thyroid: Thyroid normal Chest Chest palpation & inspection: normal inspection of the chest Resp Effort & Inspection: normal respiratory effort and no audible wheezes Auscultation: clear to auscultation bilaterally, no crackles, no wheezes and lung sounds not diminished Cardio Rate: regular rate Rhythm: regular rhythm Peripheral pulses: radial pulses present and dorsalis pedis present GI Other: colon test 12/2024 Palpation (GI): no masses Auscultation: normal bowel sounds and normoactive bowel sounds Rectal Exam - Male: Yes deferred Male General Exam: Yes normal external exam Back/Spine/Pelvis Back/spine/pelvis image: 2 1. 1 cm keratotic rash with punctate black area Skin General skin exam: no rashes or lesions noted Rashes: no rashes Neuro General: No confusion Cranial nerves: Yes Equal, round and reactive pupils present and Yes Normal hearing present Cognition (Neuro): normal cognition Gait exam (Neuro): Normal gait present Motor exam (neuro): 5/5 motor strength present throughout Deep tendon reflexes (DTR's): Right brachioradialis reflex intensity grade: 2+, Left brachioradialis reflex intensity grade: 2+, Right patellar reflex intensity grade: 2+ and Left patellar reflex intensity grade: 2+ Extrem General: No edema Assessment & Plan Assessment & Plan (1) Medicare annual wellness visit, subsequent: Code(s): Z00.00 - Encounter for general adult medical examination without abnormal findings Plan: Patient is advised to eat healthy, keep well hydrated, keep active and have adequate sleep. (2) CAD (coronary artery disease): Comment: Angioplasty 1993 Dr. Trimble echo October 2016 aortic dilatation 3.7 moderate , EF 55-60% echo October 2017 EF 60% moderate aorta 3.8 it February 2020 normal LV function 60-65% abnormal left ventricle diastolic function, mildly dilated atrium left, moderate aortic stenosis, I aorta 3.4 cm June 2021 ejection fraction 55-60% dilated left atrium PFO moderate CABD 09/2024 Code(s): I25.10 - Atherosclerotic heart disease of [place] coronary artery without angina pectoris Qualifiers: Associated angina: without angina Coronary Disease-Associated Artery/Lesion type: [place] artery [place] vs. transplanted heart: [place] heart Qualified Code(s): I25.10 - Atherosclerotic heart disease of [place] coronary artery without angina pectoris Plan: Control the cholesterol, weight, blood pressure, patient on anticoagulation with apixaban and aspirin (3) Moderate aortic stenosis: Comment: 05/2023 1.2 cm 05/2024 Code(s): I35.0 - Nonrheumatic aortic (valve) stenosis Plan: Continuing to monitor May 2024 up-to-date (4) Hypertension: Code(s): I10 - Essential (primary) hypertension Qualifiers: Hypertension type: essential hypertension Qualified Code(s): I10 - Essential (primary) hypertension Plan: Continue with blood pressure medication. Decrease salt intake and exercise patient takes metoprolol 25 mg once a day (5) Hypercholesterolemia: Code(s): E78.00 - Pure hypercholesterolemia, unspecified Plan: Avoid fried foods, chicken skin, eggs, butter margarine, pastries and meat. Be it pork or beef they have a lot of cholesterol LDL goal of less than 70 and triglyceride of less than 151 Repatha and atorvastatin (6) Atrial fibrillation: Code(s): I48.91 - Unspecified atrial fibrillation Plan: Continue with anticoagulation twice a day year blood work requested (7) Barretts esophagus: Comment: February 2025 Code(s): K22.70 - Kruse's esophagus without dysplasia Qualifiers: Kruse's esophagus type: without dysplasia Qualified Code(s): K22.70 - Kruse's esophagus without dysplasia Plan: Avoid the foods that causes that usually spicy foods, tomato products, juices, coffee, soda and foods that your sensitive to. After eating do not lie down, allow 3-4 hours before in lie down. And keep the head of bed above 30 degrees to avoid the acid from going up. 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 [id number] , Radiation oncologist Dr. Reilly Camargo [phone] and Eleni Monk Cutaneous oncology [phone] Code(s): C4A.72 - Colleen cell carcinoma of left lower limb, including hip Plan: Continue to follow-up with Hematology-Oncology (10) Tubular adenoma of colon: Comment: February 2025 Code(s): D12.6 - Benign neoplasm of colon, unspecified Plan: Advised to have colonoscopy in 5 years Plan Plan Patient was informed and verbally consented to the use of an ambient scribe for clinic note documentation during this visit. 1. Atrial Fibrillation And Coronary Artery Disease The patient is on anticoagulation with apixaban and aspirin. He also takes metoprolol 25 mg once a day for his blood pressure. The plan is to continue monitoring with his echocardiogram up to date as of May 2024 and to check blood work twice a year. 2. Hypercholesterolemia The LDL goal is less than 70 and triglyceride goal is less than 150. The patient is currently on Repatha and atorvastatin. His last LDL was 79, which is noted to be elevated. 3. Gastroesophageal Reflux Disease With Kruse's Esophagus The patient has been advised to repeat an upper endoscopy in 3 years. 4. History Of [place] Cell Carcinoma The patient's condition is stable and he continues to follow up with hematology- oncology. 5. History Of Tubular Adenoma Of Colon The patient has been advised to have a repeat colonoscopy in 5 years. Discussion Notes I advised the patient to undergo a repeat upper endoscopy in three years for surveillance of his Kruse's esophagus. I also advised him to have a follow-up colonoscopy in five years following the finding of a tubular adenoma. We discussed continuing his anticoagulation therapy and the need for blood work twice a year. Patient Instructions - Continue taking your current medications, including apixaban, aspirin, metoprolol, Repatha, and atorvastatin. - Schedule blood work to be done twice a year. - Plan to have a repeat upper endoscopy in 3 years for your Kruse's esophagus. - Plan to have a follow-up colonoscopy in 5 years. - Continue your follow-up appointments with your specialists for hematology- oncology. Orders: Orders 2 Complete Blood Count Auto Diff 6 Months I48.91 - Unspecified atrial fibrillation Free T4 (Free Thyroxine) 6 Months I48.91 - Unspecified atrial fibrillation Thyroid Stimulating Hormone 6 Months I48.91 - Unspecified atrial fibrillation Vitamin B12 and Folate 6 Months I48.91 - Unspecified atrial fibrillation Magnesium 6 Months I48.91 - Unspecified atrial fibrillation Comprehensive Met. Panel 6 Months I48.91 - Unspecified atrial fibrillation Lipid Panel 6 Months E78.00 - Pure hypercholesterolemia, unspecified, I48.91 - Unspecified atrial fibrillation Hemoglobin A1c 6 Months I48.91 - Unspecified atrial fibrillation UA CC w/rflx Micro + Cult 6 Months I48.91 - Unspecified atrial fibrillation, R30.0 - Dysuria Quality Reporting (2019) Depression/Bipolar (159/160/161/177) PHQ-9: Total score: 0 Coding Level of Care Code Medicare Subsequent (G0439) Diagnoses Medicare annual wellness visit, subsequent Z00.00 Coronary artery disease involving [place] coronary artery of [place] heart without angina pectoris I25.10 Associated angina: without angina Coronary Disease-Associated Artery/Lesion type: [place] artery [place] vs. 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
[2025-04-01 10:33] VITALS: BP 132/70; PULSE 61; TEMP 36.2; O2SAT 97; BMI 26.9
--- OUTSIDE RECORDS SUMMARY | 2025-04-01 12:38 | XMS_ITS | Clinical Summary ---
Author Organization [facility] [employer] [facility] Address [address] [place] [address] Phone Care Team Providers Care Euclid Operator Name Role Phone Linda Medina MD Primary Care Provider [phone] Allergies Active Allergy Reactions Criticality Noted Date Comments Niacin Medium 01/31/2021 Other reaction(s): Hepatitis Patient and report jaundice and he smelled like garlic Simvastatin Cough 01/31/2021 Dry cough Medications atorvastatin (LIPITOR) 80 mg tablet Take 80 mg by mouth daily. 12/27/19 13 Active cyanocobalamin (VITAMIN B-12) 250 mcg tablet Take 1 Tablet by mouth every other day. 11/03/19 20 Active folic acid (FOLVITE) 400 mcg tablet Take 1 Tablet by mouth daily. Active nitroglycerin (NITROSTAT) 0.[address] 1 Tablet under the tongue every 5 minutes as needed for Chest pain. 3 bottles of 25 09/19/19 22 Active omeprazole 20 mg tablet,disinte grat, delay rel 20 mg daily. 09/29/19 19 Active coenzyme Q-10 100 mg capsule Take 1 Capsule by mouth 2 times daily. Active aspirin 81 mg EC tablet Take 81 mg by mouth daily. 12/27/19 13 Active cetirizine (ZyrTEC) 10 mg tablet Take 1 tablet (10 mg total) by mouth 1 (one) time each day. Active sodium chloride (OCEAN) 0.65 % nasal spray Administer 1 spray into each nostril if needed for congestion. Active melatonin 3 mg tablet Take by mouth. 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 180 tablet 3 10/10/19 Active metoprolol succinate (TOPROL-XL) 25 mg 24 hr tablet Take 1 tablet (25 mg total) by mouth 1 (one) time each day. Do not crush or chew. Active Repatha SureClick 140 mg/mL pen injector injectionIndic ations:Coronar y artery disease of match[place] band artery of match[place] band heart with stable angina pectoris (CMS/HCC V24) INJECT 1 ML INTO THE SKIN EVERY 14 DAYS 6 Pen 1 03/26/20 25 Active Repatha SureClick 140 mg/mL pen injector injection INJECT 1 ML INTO THE SKIN EVERY 14 DAYS 6 mL 2 07/25/19 25 025 Discontinued Active Problems Problem Noted Date Diagnosed Date Paroxysmal atrial fibrillation 10/09/2024 Assessment & Plan (02/26/2025 8:26 AM EST): Paroxysmal atrial fibrillation. Mildly symptomatic. CHADSVASc 5. Consider monitoring and then whether to discontinue apixaban. Continue with apixaban and metoprolol for now. Assessment & Plan (10/09/2024 3:51 PM EDT): Paroxysmal atrial fibrillation. Mildly symptomatic. CHADSVASc - 6. SR today. Continue with apixaban. Consider 30 day ROCT. History of TIA (transient ischemic attack) 07/28 Overview (07/28/2024): December 2011 - presented with left arm numbness and left facial numbness with voice changes spontaneously resolved; MRI and MRA unrevealing Assessment & Plan (02/26/2025 8:26 AM EST): No neurologic symptoms. Continue with aspirin, atorvastatin, metoprolol and evolocumab. We discussed risk reduction through lifestyle choices including healthy diet, routine exercise and weight management. Assessment & Plan (10/09/2024 3:30 PM EDT): [...] on 06/13/2024 8:28 AM Assessment & Plan (02/26/2025 8:26 AM EST): Moderate by last echocardiogram in June 2024. Continue to monitor by echocardiogram as per ACC standards and as clinically indicated - update echocardiogram in June 2025. Orders: Transthoracic echocardiogram (TTE) complete with PRN contrast, bubble, strain, and 3D order panel; Future Assessment & Plan (10/09/2024 3:30 PM EDT): [...] clinically indicated. Hyperlipidemia 09/05/2020 Assessment & Plan (02/26/2025 8:26 AM EST): September 2024 - LDL 68 HDL 43. Continue with atorvastatin and evolocumab. Assessment & Plan (10/09/2024 3:30 PM EDT): September 2020 - LDL 73. Continue with atorvastatin and evolocumab. Assessment & Plan (07/28/2024 10:05 AM EDT): September 2020 - LDL 73. Continue with atorvastatin and evolocumab. Essential hypertension 09/05/2020 Assessment & Plan (02/26/2025 8:26 AM EST): Controlled. Continue with metoprolol. Assessment & Plan (10/09/2024 3:30 PM EDT): Controlled. Continue with amlodipine, atenolol, olmesartan. Assessment & Plan (07/28/2024 10:05 AM EDT): Controlled. Continue with amlodipine, atenolol, olmesartan. 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 Benavides Assessment & Plan (02/26/2025 8:26 AM EST): Inferior STEMI in 1995 status post RCA stenting with successful three vessel CABG in September 2024. Echocardiogram from 2024 showed improving, mild LV systolic dysfunction. No anginal symptoms. Continue with aspirin, apixaban, metoprolol, atorvastatin and evolocumab. Consider SGLT2 inhibitor. We discussed risk reduction through lifestyle choices including healthy diet, routine exercise and weight management. Assessment & Plan (10/09/2024 3:51 PM EDT): [...] Encounters Date Type Department Care Team Description 02/22/2025 10:10 AM EST Office Visit [facility] [address] [place] [phone] Gomez Cabral NP Nonrheumatic aortic (valve) stenosis (Primary Dx); Coronary artery disease of match[place]be[place]wish band artery of match-e-be[place]wish band heart with stable angina pectoris ([facility] V24); Hyperlipidemia, unspecified hyperlipidemia type; Essential hypertension; History of TIA (transient ischemic attack); Paroxysmal atrial fibrillation ([facility] V24, [facility] V28) 02/04/2025 Telephone [facility] [address] [place] [address] Gomez Cabral NP from Last 3 Months Immunizations Immunization Administration Dates Next Due Pfizer SARS-CoV-2 COVID-19, mRNA, LNP-S, preservative free 07/28/2020,07/07/2020 Medical History Medical History Date Comments GERD (gastroesophageal reflux disease) Family History Medical History Relation Name Comments Heart failure Father Relation Name Status Comments Father Social History Tobacco Use Types Packs/Day Years Used Date Smoking Tobacco: Former Cigarettes 2 Q uit: 04/15/1994 Smokeless Tobacco: Never Alcohol Use Standard Drinks/Week Comments Yes 0 (1 standard drink = 0.6 oz pur e alcohol) couple beers a night Sex and Gender Information Value Date Recorded Sex Assigned at Not on file Legal Sex Male 6:43 PM EST Gender Identity Not on file Sexual Orientation Not on file Last Filed Vital Signs Vital Sign Reading Time Taken Comments Blood Pressure 120/70 02/22/2025 10:12 AM EST Pulse 50 02/22/2025 10:12 AM EST Temperature - - Respiratory Rate - - Oxygen Saturation 97% 02/22/2025 10:12 AM EST Inhaled Oxygen Concentration - - Weight 81.6 kg (180 lb) 02/22/2025 10:12 AM EST Height 175.3 cm (5' 9 ) 02/22/2025 10:12 AM EST Body Mass Index 26.58 02/22/2025 10:12 AM EST Plan of Treatment Upcoming Encounters Date Type Department Care Team (Late st Contact Info) Description 06/15/2025 9:00 AM EST Ancillary Procedure [facility] [address] [place] [address] Health Maintenance Due Date Last Done Comments Colorectal Cancer Screening: Colonoscopy 1950 Abdominal Aortic Aneurysm (AAA) Screen 03/25/2022 Falls Risk Assessment 03/25/2022 Hepatitis C Screening 03/25/2022 Medicare Annual Wellness Visit 03/25/2022 Social Influencers of Health Screening 03/25/2022 Hypertension/CHF/CAD Annual BMP Blood Test 06/22/2023 06/21/2022, 06/21/2022, 02/02/2021 Depression Screening 04/15/2024 Pneumococcal Vaccine: 50+ Years (3 of 3 - PCV20 or PCV21) 04/27/2024 04/27/2019, 11/01/2016 COVID-19 Vaccine ( - season) 2024 02/11/2021, 07/28/2020, 07/07/2020 Cholesterol Screening (Lipid Panel) 09/14/2025 09/14/2020 RSV Immunization Adult Patients (1 - 1-dose 75+ series) 2027 DTaP,Tdap,and Td Vaccines (2 - Td or Tdap) 03/26/2033 03/26/2023 Zoster Vaccines Completed 05/30/2020, 01/28/2020 Influenza Vaccine Completed 01/26/2025, , 02/06/2023, Additional history exists HIB Vaccines Aged Out [...] * Annual BMP Blood Test (06/21/2022) Pathologist [facility] Annual BMP Blood Test Abstracted Historical Provider HEALTH MAINTENANCE Final Result * Lipid panel (09/14/2020) LDL/HDL Ratio 0 Triglycerides 0 mg/dL Cholesterol 0 mg/dL HDL 0 mg/dL LDL Cholesterol 0 mg/dL Blood Venous blood specimen / Unknown Historical Provider LAB BLOOD ORDERABLES Renee l Result from Last 3 Months or Most Recently Relevant to Health Maintenance Insurance MEDICARE [facility] Care Teams Euclid Operator Relationship Specialty Start Date End Date Linda Medina MD [address] [place] [address] [address] [facility] [place] [address] PCP - General 12/26/12
--- OUTSIDE RECORDS SUMMARY | 2025-04-01 12:39 | XMS_ITS | Patient Health Record ---
Author Organization [facility] Address [address] [place] [phone] Care Team Providers Care Mechanical Laboratory Technician Name Role Phone Po Lidna OSEGUERA Primary Care Provider Kiel Chavez [phone] Allergies No Known Allergies Results Component Value Reference Range Notes Pathology (Not yet reviewed by provider) Interpretation: Performing Lab:[facility], [address] [place] [phone] Notes/Report: Reason For Referral No Information Medications Medication SIG (Take, Route, Frequency, Duration) Notes Start Date End Date Status Lipitor 80 MG Tablet 1 tablet Orally Onc e a day Active Vitamin B12 Active Praluent 150 MG/ML Solution Auto-injector as directed Subcutaneous as directed SQ Injection--For lipids Active CoQ-10 Active Aspir-81 81 MG Tablet Delayed Release 1 tablet Orally Once a day Active Vitamin D3 1000 UNIT Capsule 1 capsule Orally Once a day Active Folic Acid 400 MCG Tablet 1 tablet Orally Once a day Active Omeprazole 20 MG Capsule Delayed Release 1 capsule Orally Once a day Active Benicar 20 MG Tablet Orally Active Atenolol 50 MG Tablet 1 tablet Orally Once a day Active Immunizations Vaccine Route Administration Date Status Comme nts Influenza Unknown 12/15/2019 Administered Social History Tobacco Use: Social History Observation Description Date Details (start date - stop date) Former Smoker NA - NA Social History Tobacco Use: Social Info Question Answer Notes Tobacco Use/Smoking Patient is a former smoker How long has it been since you last smoked? 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 Section Notes: Nonsmoker > 10 yrs ago; 3 be ers QD Nonsmoker > 10 yrs ago; 2-3 beers QD Nonsmoker > 10 yrs ago; 2-3 beers QD Nonsmoker > 10 yrs ago; 2-3 beers QD Problems Problem Type SNOMED Code ICD Code Onset Dates Problem Status W/U Status Risk Notes Problem Colon cancer screening (940661119) Colon cancer screening (Z12.11) Active confirmed Problem Gastroesophageal reflux disease without esophagitis (230227745) Gastroesophageal reflux disease without esophagitis (K21.9) Active confirmed Problem Kruse's esophagus (527954324) Barretts esophagus without dysplasia (K22.70) Active confirmed Problem Kruse's esophagus (989903737) Kruse''s esophagus without dysplasia (K22.70) Active confirmed Vital Signs Blood pressure diastolic 11 mm Hg 06/16/2024 Height 69.5 in 06/16/2024 Blood pressure systolic 111 mm Hg 06/16/2024 Weight 180 lbs 06/16/2024 BMI 26.2 kg/m2 06/16/2024 Procedures Procedure Date Ordered Date Performed Result Body Sit e UPPER GI ENDOSCOPY 06/16/2024 N/A COLONOSCOPY 06/16/2024 N/A Encounters Encounter Location Date Provider Diagnosis [facility] [address] [place] [phone] 02/24/2025 Kiel [place] Kruse esophagus K2 2.70 ; Hiatal hernia K44.9 ; Colon cancer screening Z12.11 and Polyp of colon K63.5 [facility] [address] [place] [phone] 06/16/2024 Kiel [place] Barretts esophagus without dysplasia K22.70 ; Gastroesophageal reflux disease without esophagitis K21.9 and Colon cancer screening Z12.11 [facility] [address] [place] [phone] 09/04/2024 Kiel [place] [facility] [address] [place] [phone] 02/12/2025 Kiel [place] Assessments Encounter Date Diagnosis (ICD Code) Assessment Notes Treatment Notes Treatment Clinical Notes Section Notes 02/24/2025 Hiatal hernia (ICD-10 - K44.9) 02/24/2025 Kruse esophagus (ICD-10 - K22.70) 06/16/2024 Gastroesophageal reflux disease without esophagitis (ICD-10 - K21.9) Overall, Daryl appears quite well. He is not having any new or worrisome GI complaints. I did recommend a colonoscopy for screening purposes given his age, good clinical appearance, and last exam being over 10 years ago. We did review the rationale for this in regard to colon cancer prevention. I have also recommended a follow-up upper endoscopy on the same day given the underlying Kruse's esophagus and his last upper endoscopy being over 3 years ago. We did review the rationale for the upper endoscopy in regard to the theoretical increased risk of esophageal cancer in patients with Kruse's esophagus. I did advise him to continue his daily omeprazole. He was advised not to use any aspirin on the morning of the procedures. Full consent has been obtained from him for both procedures, including risks of bleeding and perforation. The procedures will be done with monitored anesthesia care. Daryl was comfortable with this plan. Thank you again for allowing me to participate in Daryl's care. I shall continue to keep you advised of his progress. 06/16/2024 Barretts esophagus without dysplasia (ICD-10 - K22.70) Overall, Daryl appears quite well. He is not having any new or worrisome GI complaints. I did recommend a colonoscopy for screening purposes given his age, good clinical appearance, and last exam being over 10 years ago. We did review the rationale for this in regard to colon cancer prevention. I have also recommended a follow-up upper endoscopy on the same day given the underlying Kruse's esophagus and his last upper endoscopy being over 3 years ago. We did review the rationale for the upper endoscopy in regard to the theoretical increased risk of esophageal cancer in patients with Kruse's esophagus. I did advise him to continue his daily omeprazole. He was advised not to use any aspirin on the morning of the procedures. Full consent has been obtained from him for both procedures, including risks of bleeding and perforation. The procedures will be done with monitored anesthesia care. Daryl was comfortable with this plan. Thank you again for allowing me to participate in Daryl's care. I shall continue to keep you advised of his progress. 06/16/2024 Colon cancer screening (ICD-10 - Z12.11) Overall, Daryl appears quite well. He is not having any new or worrisome GI complaints. I did recommend a colonoscopy for screening purposes given his age, good clinical appearance, and last exam being over 10 years ago. We did review the rationale for this in regard to colon cancer prevention. I have also recommended a follow-up upper endoscopy on the same day given the underlying Kruse's esophagus and his last upper endoscopy being over 3 years ago. We did review the rationale for the upper endoscopy in regard to the theoretical increased risk of esophageal cancer in patients with Kruse's esophagus. I did advise him to continue his daily omeprazole. He was advised not to use any aspirin on the morning of the procedures. Full consent has been obtained from him for both procedures, including risks of bleeding and perforation. The procedures will be done with monitored anesthesia care. Daryl was comfortable with this plan. Thank you again for allowing me to participate in Daryl's care. I shall continue to keep you advised of his progress. 02/24/2025 Colon cancer screening (ICD-10 - Z12.11) 02/24/2025 Polyp of colon (ICD-10 - K63.5) Plan Of Treatment Pending Test Test Name Order Date UPPER GI ENDOSCOPY 06/16/2024 COLONOSCOPY 06/16/2024 Pathology 02/24/2025 Future Test Test Name Order Date UPPER GI ENDOSCOPY 09/24/2013 COLONOSCOPY 09/24/2013 UPPER GI ENDOSCOPY 03/26/2017 UPPER GI ENDOSCOPY 10/25/2020 Insurance Providers Payer Name Payer Address Payer Phone Subscriber Number Group Number Insured Name Patient Relationship to Insured Coverage Start Date Coverage End Date MEDICARE OF [place] [address] [place] [address] [id number] DARYL CLAYTON Self - patient is the insured 7 [employer] ATT[employer] CLAIMS [address] [place] [address] [id number] DARYL CLAYTON Self - patient is the insured Medical (General) History Medical History History ICD Code Colonoscopy 03-02-2004- only hyperplasti c polyps HTN [place] in 1993 with subsequent a ngioplasty- -history of angina- Dr. Evans at [facility]- ETT was OK- no cath since 1993 Hyperlipidemia Denies DM,CVA,renal disease, asthma Asbestosis seen on CXR- but no symptoms GERD- UGI in 2009 with a HH- EGD in 12/2013- small to mod-sized HH with small areas of Kruse's- no dysplasia, no esophagitis; benign gastric polyps Neg. screening colonoscopy i n 12/2013 except for diverticulosis and internal hemorrhoids EGD in 04/2017 with the small area of Kruse's and biopsies negative for dysplasia Aortic stenosis followed by Echo's with Dr. Evans at [facility]-stable as of 06/2024 Enlarged prostate Colleen cell cancer as below Upper endoscopy in October 2020 revealed his small area of Kruse's esophagus with biopsies negative for dysplasia. His known moderate size hiatal hernia was noted as well. There was no esophagitis. 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
--- OUTSIDE RECORDS SUMMARY | 2025-04-01 12:39 | XMS_ITS ---
Author Organization [facility] Address [address] [place] [phone] Phone Care Team Providers Care Feeder Driver Name Role Phone Linda Medina MD Primary Care Provider [phone] Cherie Camargo MD, MPH Unavailable [phone] Symone Pelletier MD Unavailable Toño Vu MD, PhD Unavailable [phone] Eleni Monk MD Unavailable [phone] Active Problems Problem Noted Date Diagnosed Date Hartford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, left 1 Hartford cell carcinoma 02/01/2021 Arthritis 01/31/2021 Ascending aorta [...]
--- OUTSIDE RECORDS SUMMARY | 2025-04-01 12:39 | XMS_ITS | Clinical Summary ---
Author Organization [facility] Address [address] [place] [address] Phone Care Team Providers Care Credit Card Clerk Name Role Phone Linda Medina MD Primary Care Provider [phone] Cherie Camargo MD, MPH Unavailable [phone] Symone Pelletier MD Unavailable Toño Vu MD, PhD Unavailable [phone] Eleni Monk MD Unavailable [phone] Allergies Active Allergy Reactions Criticality Noted Date [...] 5 mg by mouth daily. 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, left; Abnormal finding of diagnostic imaging 12/31/2024 11:00 AM EDT Office Visit [facility], [address] [place] [address] Symone Pelletier MD 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) 12/31/2024 Orders Only [facility], [address], [address] [place] [address] Symone Pelletier MD [place] cell carcinoma (Primary Dx) 12/31/2024 Orders Only [facility], [address], [address] [place] [address] Symone Pelletier MD [place] cell carcinoma (Primary Dx) from Last 3 Months Immunizations [...] 11:10 AM EDT [facility], [facility] [address] [facility], 2nd [place] [address] Symone Pelletier MD [address] [id number] [email or web address] 12/28/2025 10:45 AM EDT Blood Draw [facility] Imaging Department, [facility], Imaging Cmakj-ah-Pzrr [address] [facility], Floor [address]1 [place] [address] Symone Pelletier MD [address] [place] [id number] [email or web address] 12/28/2025 12:30 PM EDT Appointment [facility] Imaging Department, [facility], PET/CT [address] [place] [address] Symone Pelletier MD [address] [place] [id number] [email or web address]@[email or web address] 12/30/2025 11:00 AM EDT Office Visit [facility], [address], [address]th [place] [address] Symone Pelletier MD [address] [place] [address] Annabelle@[email or web address] 12/30/2025 11:00 AM EDT Office Visit [facility], [address], [address] [place] [address] Eleni Monk MD [address] [place] [address] [place] [address] [email or web address] Health Maintenance Due Date Last Done Comments TSH LEVEL 1952 DEPRESSION SCREENING 1964 HEPATITIS C SCREENING 1970 COLOGUARD 1997 COLONOSCOPY 1997 COLORECTAL CANCER SCREENING 1997 FIT TEST 1997 FOBT 1997 SIGMOIDOSCOPY 1997 VIRTUAL COLONOSCOPY 1997 PNEUMOCOCCAL VACCINES (50+ years) (3 of 3 - PCV20 or PCV21) 11/01/2021 04/27/2019, 11/01/2016 ALT LEVEL (ALANINE AMINOTRANSFERASE) 06/22/2023 06/21/2022, 02/02/2021, 09/14/2020 CREATININE LEVEL 06/22/2023 06/21/2022, 02/02/2021 POTASSIUM LEVEL 06/22/2023 06/21/2022, 02/02/2021 INFLUENZA VACCINE (#1) 2024 , 02/06/2023, 01/12/2022, Additional history exists COVID-19 VACCINE ( season) 2024 01/12/2022, 02/11/2021, 07/28/2020, Additional history [...] Procedure Name Priority Date/Time Associated Diagnosis Comments COMPREHENSIVE METABOLIC PANEL (CMP) Routine 06/21/2022 12:42 PM EST [place]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, left from Last 3 Months or Most Recently Relevant to Health Maintenance Results * (ABNORMAL) Comprehensive metabolic panel (06/21/2022 12:42 PM EST) SODIUM 138 136 - 145 mmol/L [facility] LIC# [id number] POTASSIUM 5.1 3.4 - 5.1 mmol/L [facility]IC# [id number] CHLORIDE 106 98 - 107 mmol/L [facility]# [id number] CO2 24 22 - 31 mmol/L [facility]# [id number] BUN 17 6 - 23 mg/dL [facility]# [id number] CREATININE 0.94 0.50 - 1.20 mg/dL [facility]# [id number] GLUCOSE 103(H) 70 - 100 mg/dL [facility]# [id number] ALBUMIN 4.1 3.5 - 5.2 g/dL [facility]# [id number] TOTAL PROTEIN 6.6 6.4 - 8.3 g/dL [facility]# [id number] CALCIUM 9.3 8.8 - 10.7 mg/dL [facility]IC# [id number] ALKALINE PHOSPHATASE 53 40 - 129 U/L [facility]IC# [id number] TOTAL BILIRUBIN 0.6 0.2 - 1.2 mg/dL [facility]# [id number] AST 18 <41 U/L [facility] LIC# [id number] ALT 15 <42 U/L [facility] LIC# [id number] GLOBULIN 2.5 2.3 - 4.2 g/dL [facility]# [id number] EGFR 87 >59 mL/min/1.7 3m2 [facility]# [id number] Comment:Estimated glomerular filtration rate calculated using the CKD-EPI refit equation. ANION GAP 8 7 - 17 mmol/L [facility]IC# [id number] Blood 06/21/2022 12:4 2 PM EST 06/21/2022 12:45 PM EST us Pratima Hyatt PA-C LAB BLOOD BKR ORDERABLES Final Result [facility] LIC# [id number] [address] [place] [id number] from Last 3 Months or Most Recently Relevant to Health Maintenance Insurance MEDICARE PART A & B [employer] [place] [address] MEDICARE PART A & B [employer] SUPPLEMENT MEDICARE PART A & B [employer] SUPPLEMENT MEDICARE PART A & B [employer] SUPPLEMENT MEDICARE PART A & B [employer] SUPPLEMENT MEDICARE PART A & B [employer] SUPPLEMENT MEDICARE PART A & B [employer] [place] [id number] MEDICARE PART A & B [employer] MEDEX SUPPLEMENT ([place]) [address] [place] [address] MEDICARE PART A & B Jimmy Fairly CROSS MEDEX SUPPLEMENT Advance Directives For more information, please contact: [phone] (9AM - 5PM Mara/[facility], Saturday-Saturday) Documents on File Type Date Recorded 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 Oncology 02/02/21 Symone Pelletier MD [address] [place] [address] [address] [place] [address] [email or web address] Medical Oncology 02/09/21 Toño Vu MD, PhD [address] [place] [address] Division [place] [address] [email or web address] Surgical Oncology 02/09/21 Eleni Monk MD [address] [place] [address] [address] [place] [address] [email or web address] 04/26/21 Additional Source Comments The information contained in this document represents components of the legal health record. It is not the complete legal health record.[facility]
== END 2025-04-01 11:35 | disposition home or self-care (01) ==
LOC: HO.HMCH 10:15
PROVIDERS: PCP Internal Medicine; Visit Provider Internal Medicine
DX: Z00.00 Encounter for general adult medical examination without abnormal findings (principal); I48.91 Unspecified atrial fibrillation; C4A.72 Merkel cell carcinoma of left lower limb, including hip; I25.10 Atherosclerotic heart disease of native coronary artery without angina pectoris; I35.0 Nonrheumatic aortic (valve) stenosis; I10 Essential (primary) hypertension; E78.00 Pure hypercholesterolemia, unspecified; K22.70 Barrett's esophagus without dysplasia; N40.0 Benign prostatic hyperplasia without lower urinary tract symptoms; D12.6 Benign neoplasm of colon, unspecified

== ENCOUNTER → 2025-04-01 10:14 | Outpatient (BNVA) | payer MEDICARE, SELFPAY | PROVIDERS: PCP Internal Medicine; Visit Provider Internal Medicine | DX: Z13.31 Encounter for screening for depression (principal) | CPT/HCPCS: 96127 ==